=== PATIENT | female | born 1985 | race Caucasian/White ===

== ENCOUNTER 2019-04-28 13:43 | Emergency (ER) | payer OTHER, SELFPAY ==
[2019-04-28 13:50] VITALS: BP 155/92; PULSE 86; RESP 16; TEMP 37.2; O2SAT 99
--- NOTE | 2019-04-28 14:19 | ED.GENADULT ---
HPI - General Adult General Chief complaint: Ear Stated complaint: Migraine/weakness/ear pain Time Seen by Provider: 04/28/19 14:19 Source: patient and RN notes reviewed Mode of arrival: ambulatory Limitations: no limitations History of Present Illness HPI narrative: 34-year-old female presents with complains of nausea, fatigue, and bilateral ear pain for 1 day. Tylenol without relief. Symptoms increased this am upon awakening with headache (not the WORST one of her life), intermittent nausea and dizziness. No neck stiffness. Nausea without emesis, abdominal pain, or diarrhea. Denies ear itching, ear trauma, trauma to head, syncopal episodes, or altered speech. Denies numbness or tingling in extremities. No fever chills. No URI symptoms. Gradual onset started this morning. No head injury. History of migraine. Denies vision change, confusion, or seizure activity. Remains active. Some parts of this dictation were generated by voice recognition software and may contain typographical and/or grammatical inaccuracies. Related Data Home Medications Medication Instructions Recorded Confirmed metoprolol succinate 100 mg PO DAILY 12/27/18 04/28/19 ergocalciferol (vitamin D2) 50,000 unit PO WEEKLY 04/28/19 04/28/19 [Vitamin D2] Allergies Allergy/AdvReac Type Severity Reaction Status Date / Time hydrocodone Allergy Unknown throat Verified 04/28/19 13:58 closes Review of Systems Review of Systems: Narrative: CONSTITUTIONAL: Complains of fatigue. Denies fever, chills, sweats. EYES: Denies visual changes, redness, discharge. ENT: Denies rhinorrhea, congestion, sore throat. Complains of bilateral otalgia. CARDIOVASCULAR: Denies chest pain, palpitations, edema. RESPIRATORY: Denies dyspnea, wheezing, cough. GASTROINTESTINAL: Denies abdominal pain, vomiting, or diarrhea. Complains of nausea. GENITOURINARY: Denies dysuria, hematuria, abnormal discharge. SKIN: Denies rash or itching. MUSCULOSKELETAL: Denies acute back pain, joint pain, or myalgia. NEUROLOGIC: Denies numbness or focal weakness. Complaints of headache & intermittent dizziness. PSYCHIATRIC: Denies anxiety or depression. All systems reviewed & are unremarkable except as noted in HPI and below PMFSH Past Medical History Medical History (Updated 05/06/19 @ 15:07 by EDGAR Colon) Anxiety Dyslipidemia Hx of migraines SVT (supraventricular tachycardia) Surgical History Surgical History (Updated 05/06/19 @ 14:53 by EDGAR Colon) History of dilation and curettage History of hysterectomy Family History Family History Father Diabetes mellitus Family history of congestive heart failure Social History Social History Smoking status: Former smoker Comments At time of signature, agree with nurse past medical, surgical, social, and family history. There is no relevant family history pertinent to the presenting complaint. Exam Narrative: Exam Narrative: GENERAL: This is a well-nourished, well-developed patient, in no apparent distress. Talks in full sentences, no language deficiencies and ambulates with steady gait without dyspnea. HEAD: normocephalic, atraumatic. EYES: PERRL. Sclera clear/white. Vision is grossly intact. EOMI, no nystagmus noted. EARS: External ears normal, auditory canals clear and without drainage, TMs normal without perforation. Hearing grossly intact. NOSE: External nose normal with no obvious nasal discharge, nares with moderate redness and enlarged turbinates, no rhinorrhea. Mild maxillary sinus tenderness with palpation. THROAT: Mucous membranes moist, posterior pharynx clear. NECK: Neck supple, non-tender without lymphadenopathy, masses or thyromegaly. CARDIOVASCULAR: Regular rate and rhythm without murmurs, gallops, or rubs. RESPIRATORY: Clear to auscultation. Breath sounds equal bilatera
[2019-04-28] MEDS: KETOROLAC (*BKC) 60 MG/2 ML VIAL IM (14:28)
[2019-04-28 14:34] VITALS: BP 146/79; PULSE 65
[2019-04-28 14:36] VITALS: BP 148/89; PULSE 76
[2019-04-28 14:38] VITALS: BP 148/95; PULSE 85
== END 2019-04-28 15:01 | disposition home or self-care (01) ==
PROVIDERS: Emergency Provider Nurse Practitioner Family; PCP Family Medicine
DX: R51 Headache (principal); I10 Essential (primary) hypertension
CPT/HCPCS: 87804; 96372; 99213; G0463; J1885

== ENCOUNTER 2019-11-24 11:34 | Emergency (ER) | payer OTHER, SELFPAY ==
[2019-11-24 11:38] VITALS: BP 151/92; PULSE 66; RESP 16; TEMP 36.5; O2SAT 99
--- NOTE | 2019-11-24 12:00 | ED.FEMALEGU ---
HPI - Female Genitourinary General Chief complaint: Urogenital-Female Stated complaint: BACK PAIN/UTI SYMPTOMS/EARACHE Time Seen by Provider: 11/24/19 11:35 Source: patient Mode of arrival: ambulatory Limitations: no limitations History of Present Illness HPI Narrative: 34-year-old female presents to [facility] with complaints of lower back pains, and lower abdominal pressure with urination since yesterday. Patient reports long history of urinary tract infections and is waiting to see a urologist due to frequent UTIs and blood in her urine. Patient reports that she also started bilateral ear pain, left is worse than right since yesterday. Patient denies fever, bites, chills, nausea, vomiting or diarrhea. Patient not tried taking any [id number] medications for her symptoms. Patient reports history of hysterectomy. MD elicited complaint: back pain and other (lower abdominal pressure with urination ) Onset (ago): day(s) (1) Vaginal bleeding: none Exacerbating factors: none Relieving factors: none Associated symptoms: denies other symptoms Treatment prior to arrival: none Patient : No Related Data Home Medications Medication Instructions Recorded Confirmed metoprolol succinate 100 mg PO DAILY 12/27/18 11/24/19 ergocalciferol (vitamin D2) 50,000 unit PO WEEKLY 04/28/19 11/24/19 [Vitamin D2] Allergies Allergy/AdvReac Type Severity Reaction Status Date / Time hydrocodone Allergy Unknown throat Verified 11/24/19 11:38 closes Review of Systems Constitutional: Constitutional: Denies chills and Denies fatigue ENT: Comments: bilateral ear pain Cardiovascular: Cardiovascular: Denies chest pain Respiratory: Respiratory: Denies cough, Denies dyspnea and Denies wheezing Gastrointestinal: Gastrointestinal: Denies abdominal pain, Denies constipation, Denies diarrhea, Denies nausea and Denies vomiting Genitourinary: Genitourinary: Reports flank pain Comments: lower abdominal pressure with urination Musculoskeletal: Musculoskeletal: Denies myalgias, Denies arthralgias, Denies joint swelling and Denies muscle cramps Integumentary/Breasts: Skin/Breast: Denies rash Neurologic: Denies vertigo, Denies dizziness and Denies syncope PMF Past Medical History Medical History Anxiety Dyslipidemia Hx of migraines SVT (supraventricular tachycardia) Surgical History Surgical History History of dilation and curettage History of hysterectomy Family History Family History Father Diabetes mellitus Family history of congestive heart failure Social History Social History Smoking status: Former smoker Comments At time of signature, I agree with nursing past medical, surgical, social and family history. There is no relevant family history pertinent to the presenting complaint. Exam Const: General: no acute distress and alert Nutritional Appearance: well nourished Orientation/consciousness: patient oriented x3 HENMT: Head: normal to inspection Ears: TM abnormal bulging on the left, erythematous (mild ) on the left and with fluid behind the TM on the left General nose exam: Normal external nose present and Normal nares present Face and sinus: normal facial exam and sinuses nontender Mouth: Yes Normal oral and palatal mucosa present and Yes lip normal Teeth and gingiva: dentition normal Neck: Neck: normal visual inspection and no lymphadenopathy Resp: Effort & Inspection: normal respiratory effort, not labored and not tachypneic Auscultation: clear to auscultation bilaterally Cardio: Rate: regular rate, not bradycardic and not tachycardic Rhythm: regular rhythm GI: Inspection: non-distended GI Palp: Yes Soft to palpation, No Guarding due to palpation present (GI), No Rigid due
== END 2019-11-24 12:20 | disposition short-term general hospital (02) ==
PROVIDERS: Emergency Provider Nurse Practitioner Family; PCP Family Medicine
DX: R10.9 Unspecified abdominal pain (principal); H65.02 Acute serous otitis media, left ear; Z87.891 Personal history of nicotine dependence; E78.5 Hyperlipidemia, unspecified
CPT/HCPCS: 81003; 99213; G0463

== ENCOUNTER 2019-11-24 12:37 | Emergency (ER) | payer OTHER, SELFPAY ==
[2019-11-24 13:11] VITALS: BP 175/114; PULSE 79; RESP 18; TEMP 36.5; O2SAT 100
[2019-11-24 13:25] LABS: Basophils Absolute Auto 0.1 K/mm3 (0.0-0.1); Basophils Percent Auto 0.6 % (0.2-1.2); Eosinophils Absolute Auto 0.2 K/mm3 (0-0.3); Eosinophils Percent Auto 1.5 % (0-4.4); Hematocrit 39.3 % (37.0-47.0); Immature Granulocyte Absolute 0.04 K/mm3 (0.00-0.031); Immature Granulocyte Percent A 0.4 % (0-0.5); Lymphocytes Absolute Auto 3.22 K/mm3 (0.9-3.2); Lymphocytes Percent Auto 29.3 % (18.3-44.2); Mean Corpuscular HGB Conc 33.1 g/dl (32-36); Mean Corpuscular Hemoglobin 29.6 pg (26-34); Mean Corpuscular Volume 89.5 fl (80-100); Mean Platelet Volume 9.5 fl (7.4-10.4); Monocytes Absolute Auto 0.7 K/mm3 (0.1-0.6); Monocytes Percent Auto 6.1 % (2.6-8.5); Neutrophils Absolute Auto 6.8 K/mm3 (1.3-6.7); Neutrophils Percent Auto 62.1 % (45.5-73.1); Platelet Count Result 334 k/mm3 (150-375); Red Blood Count 4.39 M/mm3 (4.2-5.4); Red Cell Distribution Width 12.9 % (11.5-14.5)
[2019-11-24 13:36] LABS: Anion Gap 9 mmol/L (8-16); Blood Urea Nitrogen 12 mg/dL (7-17); Calcium 9.8 mg/dL (8.4-10.2); Carbon Dioxide 29 mmol/L (22-30); Chloride 103 mmol/L (98-107); Estimated CRCL calculation 88 ml/min; Estimated Glomerular Filt Rate > 60; Glucose 87 mg/dL (65-105); Potassium 4.4 mmol/L (3.4-5.0); Sodium 141 mmol/L (137-145)
[2019-11-24 13:46] LABS: Add Urine Microscopic? YES; Appearance Urine Clear (Clear); Bilirubin Urine Negative (Negative); Blood Urine 2+ (Negative); Color Urine Yellow (Yellow); Glucose Urine UA Negative (Negative); Ketones Urine Negative (Negative); Leukocyte Esterase Ur Negative LEU/UL (Negative); Nitrate Urine Negative (Negative); Protein Urine 1+ mg/dL (Negative); Specific Grav Ur 1.017 (1.001-1.035); Squamous Epithelial Cell Urine Few /hpf (Few); Urobilinogen Urine Negative mg/dL (<2.0); WBC Urine 0-3 /hpf
--- NOTE | 2019-11-24 14:23 | PC.NURSE ---
Left without being seen. Will follow up with pmd.
== END 2019-11-24 15:34 | disposition left against medical advice (07) ==
PROVIDERS: Emergency Provider Emergency Medicine; PCP Family Medicine
DX: R10.9 Unspecified abdominal pain (principal)
CPT/HCPCS: 36415; 80048; 81001; 81003; 81025; 85025; 99199; 99213; G0463

== ENCOUNTER 2019-11-28 15:34 | Outpatient (CLI) | payer OTHER, SELFPAY ==
--- NOTE | ~2019-11-28 | US_ITS ---
US renal BI 11/28/2019 16:08 Procedure: Realtime transabdominal ultrasound of the kidneys and bladder. Indication: Gross hematuria Comparison: 06/03/2005 Findings: Renal echotexture is normal bilaterally without hydronephrosis, contour deforming mass or r enal calculus. The right kidney measures 10.9 cm and left kidney measures 11.9 cm. Bladder within no rmal limits. Impression: 1: Unremarkable renal ultrasound. No stones, masses or hydronephrosis. Reviewed, dictated and finalized at location B. Impression: 1: Unremarkable renal ultrasound. No stones, masses or hydronephrosis.
== END 2019-11-28 15:35 | disposition home or self-care (01) ==
PROVIDERS: PCP Family Medicine; Visit Provider Family Medicine
DX: R31.0 Gross hematuria (principal)
CPT/HCPCS: 76775

== ENCOUNTER 2019-12-22 17:58 | Emergency (ER) | payer OTHER, SELFPAY ==
[2019-12-22 18:16] VITALS: BP 151/95; PULSE 75; RESP 20; TEMP 36.7; O2SAT 100
--- NOTE | 2019-12-22 18:25 | ED.GENADULT ---
HPI - General Adult General Chief complaint: Headache Stated complaint: migraine Time Seen by Provider: 12/22/19 18:26 Source: patient Mode of arrival: ambulatory Limitations: no limitations History of Present Illness HPI narrative: 34-year-old female patient presents to the [facility] with complaints of a frontal migraine. Patient states that she does have history of migraines and states that it started this morning when she woke up. Patient states it was somewhat mild when she woke up this morning and she took took some Excedrin Migraine however is gotten worse as the day has went on. Patient states she is prescribed medications for her migraines but does not know what the name of it is. Patient states that she did not take her prescribed migraine medication today yet. Patient denies any vision changes but states she does have sensitivity to the light. Denies any vomiting or diarrhea but does have slight nausea. Patient denies being . Related Data Home Medications Medication Instructions Recorded Confirmed metoprolol succinate 100 mg PO DAILY 12/27/18 11/24/19 ergocalciferol (vitamin D2) 50,000 unit PO WEEKLY 04/28/19 11/24/19 [Vitamin D2] calcium phos,dibas-vitamin D3 tablet PO 11/24/19 [Vitamin D (with calcium)] metoprolol succinate 100 mg PO DAILY 11/24/19 ergocalciferol (vitamin D2) mcg PO DAILY 12/22/19 [Vitamin D2] metoprolol succinate 100 mg PO DAILY 12/22/19 12/22/19 Allergies Allergy/AdvReac Type Severity Reaction Status Date / Time hydrocodone Allergy Unknown throat Verified 11/24/19 11:38 closes Review of Systems Review of Systems: Narrative: CONSTITUTIONAL: Denies fever, chills, or sweats. EYES: Denies visual changes, redness, or discharge. Positive photophobia ENT: Denies rhinorrhea, congestion, sore throat, or otalgia. CARDIOVASCULAR: Denies chest pain, palpitations, or edema. RESPIRATORY: Denies cough or dyspnea. GASTROINTESTINAL: Denies abdominal pain, nausea, vomiting, or diarrhea. GENITOURINARY: Denies dysuria or hematuria. SKIN: Denies rash or itching. MUSCULOSKELETAL: Denies back pain, joint pain, or myalgia. NEUROLOGIC: Positive headache, denies numbness, or weakness. PSYCHIATRIC: Denies anxiety or depression. [facility] Past Medical History Medical History Anxiety Dyslipidemia Hx of migraines SVT (supraventricular tachycardia) Surgical History Surgical History History of dilation and curettage History of hysterectomy Family History Family History Father Diabetes mellitus Family history of congestive heart failure Social History Social History Smoking status: Former smoker Gender identity (if verbalized by the patient): Female Comments At the time of my signature I agree with nursing past medical history, surgical, social, and family history. There is no relevant family history pertinent to the presenting complaint. Exam Narrative: Exam Narrative: GENERAL: Well-appearing, well-nourished, and in no acute distress. HEAD: Normocephalic, atraumatic. EYES: PERRLA and EOMI. positive photophobia ENT: Nares with erythema and edema noted bilaterally, no rhinorrhea or epistaxis. Mucous membranes moist. Posterior pharynx with no erythema, tonsillar joint, exudates or lesions present. Bilateral TMs are clear no erythema or foreign bodies in the canal. NECK: Supple. No lymphadenopathy CHEST: Clear to auscultation. No respiratory distress. HEART: Regular rate and rhythm. No murmur heard. Normal peripheral pulses. ABDOMEN: Soft, nontender, nondistended, normal active bowel sounds. EXTREMITIES: Normal range of motion. No edema. SKIN: Warm, dry, no rash. NEURO: Alert and oriented x4, GCS 15. Cranial nerves II through XII grossly intact. No focal neurol
[2019-12-22] MEDS: ONDANSETRON HCL ODT 4 MG TABLET PO (18:44)
[2019-12-22] MEDS: KETOROLAC (*BKC) 60 MG/2 ML VIAL IM (18:45)
== END 2019-12-22 19:20 | disposition home or self-care (01) ==
PROVIDERS: Emergency Provider Nurse Practitioner Family; PCP Family Medicine
DX: G43.909 Migraine, unspecified, not intractable, without status migrainosus (principal); Z87.891 Personal history of nicotine dependence; E78.5 Hyperlipidemia, unspecified
CPT/HCPCS: 96372; 99213; A9270; G0463; J1885

== ENCOUNTER 2019-12-25 12:45 | Inpatient (IN) | payer OTHER, SELFPAY ==
[2019-12-25] VITALS (18 sets, daily range): BP systolic 121–170; BP diastolic 74–138; PULSE 87–181; RESP 14–220; TEMP 36.4–37; O2SAT 96–99; BMI 54.2
--- NOTE | ~2019-12-25 | XR_ITS ---
EXAMINATION: XR chest 1V portable INDICATION: Shortness of breath TECHNIQUE: Portable AP chest at 1312 hours COMPARISON: 05/12/2018 FINDINGS: A mild diffuse interstitial pattern is present. More focal airspace opacities are seen in t he lung bases. There is no pleural effusion or pneumothorax. The cardiomediastinal silhouette is norm al. The visualized osseous structures are unremarkable. IMPRESSION: 1. Mild diffuse interstitial pattern with more focal airspace opacity of the lung bases. Findings cou ld reflect pulmonary edema and/or pneumonia, and/or atelectasis. Reviewed, dictated and finalized at location A. FABRICATOR IMPRESSION: 1. Mild diffuse interstitial pattern with more focal airspace opacity of the connie ng bases. Findings could reflect pulmonary edema and/or pneumonia, and/or atele ctasis.
--- NOTE | 2019-12-25 13:02 | ECG_ITS ---
Measurements Intervals [place] Rate: 173 P: GA: 0 QRS: 31 QRSD: 80 T: -6 QT: 259 QTc: 440 Interpretive Statements ATRIAL FIBRILLATION WITH RAPID VENTRICULAR RESPONSE BORDERLINE ST-T WAVE ABNORMALITY- INF/LAT LEADS BASELINE ARTIFACT- III, AVF ABNORMAL ECG Electronically Signed On 12-26-2019 11:27:15 ROUTER OPERATOR PIN by Tyler Julian D.O.
--- NOTE | 2019-12-25 13:05 | ED.GENADULT ---
HPI - General Adult General Chief complaint: Arrhythmia/Palpitations Stated complaint: heart palpitations Time Seen by Provider: 12/25/19 12:47 Source: patient History of Present Illness HPI narrative: Patient is a 34 y/o female complaining mild SOB and heart palpitation starting 1 1/2 hour ago. She states that she was just sitting taking lunch break when it started. There is no alleviating or exacerbating factor. She has mild chest pressure. She denies any fever or cough. Related Data Home Medications Medication Instructions Recorded Confirmed ergocalciferol (vitamin D2) 50,000 unit PO WEEKLY 04/28/19 11/24/19 [Vitamin D2] metoprolol succinate 100 mg PO DAILY 12/22/19 12/22/19 sumatriptan succinate mg PO 12/25/19 Allergies Allergy/AdvReac Type Severity Reaction Status Date / Time hydrocodone Allergy Unknown throat Verified 12/25/19 13:03 closes Review of Systems Constitutional: Constitutional: Denies chills, Denies fever(s), Denies headache(s) and Denies weakness Eyes: Eyes: Denies blurry vision ENT: Denies headache(s) and Denies neck pain Cardiovascular: Cardiovascular: Reports chest pain, Reports rapid heart rate and Reports dyspnea Respiratory: Respiratory: Denies cough and Reports dyspnea Gastrointestinal: Gastrointestinal: Denies abdominal pain, Denies diarrhea, Denies nausea and Denies vomiting Genitourinary: Genitourinary: Denies hematuria and Denies dysuria Musculoskeletal: Musculoskeletal: Denies back pain and Denies neck pain Neurologic: Denies headache(s) and Denies weakness PMFSH Past Medical History Medical History Anxiety Dyslipidemia Hx of migraines SVT (supraventricular tachycardia) Surgical History Surgical History History of dilation and curettage History of hysterectomy Family History Family History Father Diabetes mellitus Family history of congestive heart failure Social History Social History Smoking status: Former smoker Gender identity (if verbalized by the patient): Female Exam Const: General: no acute distress and well developed Orientation/consciousness: oriented to person, oriented to place, oriented to time and patient oriented x3 HENMT: Head: normocephalic Ears: external ears normal General nose exam: Normal external nose present Eyes: General: appearance normal, both eyes and all related structures Conjunctivae: conjunctivae normal Neck: Neck: normal visual inspection and full ROM Chest: Chest palpation & inspection: normal inspection of the chest and no tenderness Resp: Effort & Inspection: normal respiratory effort Auscultation: clear to auscultation bilaterally Cardio: Rate: tachycardic Rhythm: abnormal rhythm irregularly irregular GI: GI Palp: No abdominal tenderness and Yes Soft to palpation Skin: General skin exam: normal color and turgor normal Neuro: General: oriented to person, oriented to place, oriented to time and patient oriented x3 Cognition (Neuro): normal cognition Extrem: General: normal to inspection, full ROM and no pedal edema Psych: Appearance: grossly normal Mental Status: mental status grossly normal Affect: normal affect Course Consultations Consultation #1: Discussed with Dr. Diaz (cardiology), who agrees to consult. Date: 12/25/19 Time: 15:10 Consultation #2: Discussed with JEANINE Paredes, who agrees to admit. Date: 12/25/19 Time: 15:23 Vital Signs Vital signs: Vital Signs Temperature 37.0 C 12/25/19 12:56 Pulse Rate 181 H 12/25/19 12:56 Respiratory Rate 24 H 12/25/19 12:56 Blood Pressure 170/138 H 12/25/19 12:56 Pulse Oximetry 97 12/25/19 12:56 Temperature 36.4 C L 12/25/19 17:31 Pulse Rate 104 H 12/25/19 17:31 Respiratory Rate 19 12/25/19 17:31 Blood Pressure 13
[2019-12-25] MEDS: dilTIAZem HCl INJ 25 MG/5 ML VIAL IV PUSH (13:14)
[2019-12-25 13:58] LABS: Basophils Absolute Auto 0.1 K/mm3 (0.0-0.1); Basophils Percent Auto 0.6 % (0.2-1.2); Eosinophils Absolute Auto 0.1 K/mm3 (0-0.3); Eosinophils Percent Auto 0.9 % (0-4.4); Hematocrit 39.6 % (37.0-47.0); Hemoglobin 13.5 g/dL (12.0-15.0); Immature Granulocyte Absolute 0.04 K/mm3 (0.00-0.031); Immature Granulocyte Percent A 0.3 % (0-0.5); Lymphocytes Percent Auto 22.1 % (18.3-44.2); Mean Corpuscular HGB Conc 34.1 g/dl (32-36); Mean Corpuscular Hemoglobin 29.3 pg (26-34); Mean Corpuscular Volume 86.1 fl (80-100); Mean Platelet Volume 9.8 fl (7.4-10.4); Monocytes Absolute Auto 0.6 K/mm3 (0.1-0.6); Monocytes Percent Auto 5.1 % (2.6-8.5); Neutrophils Absolute Auto 8.3 K/mm3 (1.3-6.7); Platelet Count Result 374 k/mm3 (150-375); Red Cell Distribution Width 12.6 % (11.5-14.5); White Blood Count 11.8 K/mm3 (4.5-10.0)
--- NOTE | 2019-12-25 13:58 | PC.NURSE ---
Per verbal order of EDP, cardizem infusion was increased to 10mg/hr(10ml/hr) at this time.
[2019-12-25 14:02] LABS: Add Urine Microscopic? YES; Appearance Urine Clear (Clear); Bilirubin Urine Negative (Negative); Blood Urine 1+ (Negative); Color Urine Colorless (Yellow); Glucose Urine UA Negative (Negative); Ketones Urine Negative (Negative); Leukocyte Esterase Ur Negative LEU/UL (Negative); Mucus Urine Rare /lpf; Nitrate Urine Negative (Negative); Protein Urine 2+ mg/dL (Negative); RBC Urine 0-2 /hpf (0-2); Specific Grav Ur 1.008 (1.001-1.035); Squamous Epithelial Cell Urine Occasional /hpf (Few); Urobilinogen Urine Negative mg/dL (<2.0); WBC Urine 0-3 /hpf
[2019-12-25] MEDS: ACETAMINOPHEN 325 MG TABLET 650 MG PO ×2 (14:02→21:34)
[2019-12-25 14:08] LABS: INR 0.9; Prothrombin Time 12.3 Seconds (11.1-14.7)
[2019-12-25 14:09] LABS: Partial Thromboplastin Time 20.3 SECONDS (22.3-36.8)
[2019-12-25 14:11] LABS: D Dimer 0.44 ug/mL (<0.48)
[2019-12-25 14:15] LABS: Alanine Aminotransferase 23 U/L (4-35); Albumin Level 4.5 g/dL (3.5-5.1); Alkaline Phosphatase 93 U/L (38-126); Anion Gap 11 mmol/L (8-16); Aspartate Amino Transferase 32 U/L (14-36); Bilirubin,Total 0.4 mg/dL (0.2-1.3); Blood Urea Nitrogen 16 mg/dL (7-17); Calcium 9.4 mg/dL (8.4-10.2); Carbon Dioxide 26 mmol/L (22-30); Chloride 105 mmol/L (98-107); Estimated Glomerular Filt Rate > 60; Glucose 104 mg/dL (65-105); Potassium 4.1 mmol/L (3.4-5.0); Sodium 142 mmol/L (137-145)
[2019-12-25 14:26] LABS: NT Pro B Type Natriuretic Pept 94 PG/ML (5-100); Troponin I < 0.012 ng/mL (0.000-0.034)
--- NOTE | 2019-12-25 14:30 | PC.NURSE ---
Per verbal order of Dr. Echevarria, cardizem drip was increased to 15mg/hr(15ml/hr).
[2019-12-25] MEDS: AMIODARONE 150 MG/D5W 100 ML 150 MG/100 ML BAG 600 MG IV CONT (15:28)
[2019-12-25] MEDS: AMIODARONE 360 MG/D5W 200 ML 360 MG/200 ML BAG 33.33 MG IV CONT (15:40)
--- NOTE | 2019-12-25 18:00 | PM.IMHP ---
H&P: HPI History of Present Illness Date/Time: 12/25/19 18:00 Chief complaint: Palpitations. Narrative: Tracy Chavarria is a pleasant 34-year-old female with history of obstructive sleep apnea and supraventricular tachycardia on metoprolol who presented to the emergency department earlier this afternoon from her place of employment with complaints of palpitations. While sitting in the break room eating lunch she developed sudden onset of palpitations and reports feelings of a racing heart, lightheadedness, and mild midsternal chest pressure. All of these symptoms are similar to prior episodes of SVT. She was found to be in atrial fibrillation with rapid ventricular response, which is a new diagnosis for her, and she is being admitted in this setting. On arrival to the emergency department her heart rate was in the 180s, but has improved on Cardizem drip and she is now running around 120. She is no longer experiencing palpitations or chest pressure. She is still adjusting to her CPAP as it was delivered recently, but it does not sound as though she has been using it every night. She has not missed any doses of her metoprolol. She drinks maybe 1 cup of coffee a day and 32 oz of soda a day. No significant alcohol use. She does not take supplements or consume energy drinks. She has not had exertional chest pain shortness of breath. No orthopnea, PND, or lower extremity edema. Review of Systems Review of Systems: Narrative: Twelve systems were reviewed with pertinent positives and negatives as per HPI. No fever, chills, or sweats. No recent cold or flu symptoms. She denies sick contacts. Weight has remained stable. She has been suffering from migraines, and more recently occipital headaches. She was told that the headaches may very well be related to her untreated sleep apnea. No nausea, vomiting, or diarrhea. No history of thyroid disease or concerns for such Except as documented, all other systems were reviewed and are negative. [facility] Past Medical History Medical History (Updated 12/25/19 @ 21:02 by Lena Dunham PA-C) Anxiety Dyslipidemia Endometriosis Migraine headache Obstructive sleep apnea on CPAP Supraventricular tachycardia Vitamin D deficiency Surgical History Surgical History (Updated 12/25/19 @ 20:58 by Lena Dunham PA-C) History of dilation and curettage History of hysterectomy With unilateral salpingo-oophorectomy. History of laparoscopy With destruction of endometriosis. History of tubal ligation Family History Family History (Updated 12/25/19 @ 20:58 by Lena Dunham PA-C) Father Diabetes mellitus Family history of congestive heart failure Mother Atrial fibrillation Social History Social History (Updated 12/25/19 @ 20:59 by Lena Dunham PA-C) Social History: Surrogate decision maker: Mariam Chavarria, . Code status: Full code. Smoking packs per day: 1 Smoking cigarettes per day: 20.0 Years smoked: 7 Smoking pack-years: 7.00 Smoking status: Former smoker Alcohol intake: never Substance use: never Additional living arrangements comments: Resides in [place] with her and 3 children. Additional occupation/education comments: Works in housekeeping at [employer]. Gender identity (if verbalized by the patient): Female Spiritual care concerns: No Meds Home Medications and Allergies Home Medications Medication Instructions Recorded Confirmed Type ergocalciferol (vitamin D2) 50,000 unit PO WEEKLY 04/28/19 12/25/19 History [Vitamin D2] loratadine [Claritin] 10 mg PO DAILY PRN #20 tablet 11/24/19 12/25/19 Rx metoprolol succinate 100 mg PO QPM 12/22/19 12/25/19 History sumatriptan succinate 50 mg PO USEASDIRECTD 12/25/19 12/25/19 History Allergies Allergy/AdvReac Type Severity Reaction Status Date / Time hydrocodone Allergy Unknown throat Verified 12/25/19 13:03 closes Vital Signs Vital Signs - 24
[2019-12-25 19:57] LABS: Troponin I 0.015 ng/mL (0.000-0.034)
--- NOTE | 2019-12-25 20:03 | ADMGEN ---
This patient, Tracy Chavarria, was admitted to IMU Room 203-01. Patient/family oriented to hospital policies and general routines including ID bracelet, bed and alarms, visiting hours, pain management, procedures, bathroom and other care routines, personal items, smoking policy, room service/diet, and visiting hours. Information on how to activate the Rapid Response Team has been discussed. Patient/Family are encouraged to report perceived risks to care and to ask questions if they do not understand what they are told or what they should do.
[2019-12-25] MEDS: AMIODARONE 360 MG/D5W 200 ML 360 MG/200 ML BAG 16.67 MG IV CONT (20:48)
[2019-12-26] VITALS (19 sets, daily range): BP systolic 130–169; BP diastolic 76–107; PULSE 49–111; RESP 16–20; TEMP 36.1–36.6; O2SAT 97–99
[2019-12-26] MEDS: ACETAMINOPHEN 325 MG TABLET 650 MG PO ×2 (01:36→08:24)
--- NOTE | 2019-12-26 06:38 | ECG_ITS ---
Measurements Intervals [place] Rate: 70 P: 20 ND: 155 QRS: 3 QRSD: 86 T: 65 QT: 399 QTc: 431 Interpretive Statements SINUS RHYTHM DELAYED PRECORDIAL R/S TRANSITION NONSPECIFIC T-WAVE ABNORMALITY- HIGH LAT LEADS BORDERLINE ECG Electronically Signed On 12-26-2019 8:31:20 HUMAN RESOURCES VICE PRESIDENT by Tyler Julian D.O.
[2019-12-26] MEDS: AMIODARONE 360 MG/D5W 200 ML 360 MG/200 ML BAG 16.67 MG IV CONT (08:25)
--- NOTE | 2019-12-26 12:25 | PM.CNCAR ---
Assessment and Plan Additional Plan 34-year-old woman with prior history of SVT now presenting with atrial fibrillation with RVR which once again occurred paroxysmally while she was at work. 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 Following initiation of treatment with amiodarone intravenously she has converted to sinus rhythm. Most likely her atrial arrhythmias are related to obesity/sleep apnea which is relatively common. Because of the recurrence while she was taking metoprolol 100 mg daily am going to initiate therapy with sotalol in place of this. Intravenous amiodarone will be stopped at this time as we certainly do not wish to commit this young lady to long-term amiodarone treatment Real Gomez MD [facility] History of Present Illness History of Present Illness Consult date/time: 12/26/19 12:25 Consult reason: atrial fibrillation Reason For Visit: Palpitations. Narrative: This is a 34-year-old woman I am seeing at the request of the hospitalist service for assistance with the management of atrial fibrillation. The patient is unknown to be prior to this consultation today but states that she is a established patient of Dr. Julian. She states that she had no history of any cardiac problems until about 1-2 years ago when she was hospitalized or seen in the emergency room with an episode of symptomatic supraventricular tachycardia. She states that that time she abruptly noted the onset of tachycardia and palpitations while she was at work she was seen in the emergency room and treated with adenosine restoring sinus rhythm. She states that her evaluation since then consisted of echocardiography which she was told was negative and she was placed on metoprolol for both this and for hypertension. Her blood pressure was modestly elevated at that time. She was found to have obstructive sleep apnea on subsequent sleep testing. She is morbidly obese with a BMI of 54. She has not had any recurrence of palpitations until yesterday afternoon/evening. 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 This time her electrocardiogram appears to show a atrial fib with rapid ventricular response rather than SVT. The emergency room physician placed her on intravenous amiodarone which overnight has converted her to sinus rhythm. In that is scenario I am seeing her in consultation today. She appears to be comfortable and without any other complaints at this time. Patient is with several children her youngest is a daughter of 12 years old. She does not smoke she smoked as a younger woman but does not smoke anymore. Does not consume alcohol or use any illicit drugs she does not drink excessive amounts of caffeinated beverages. Review of Systems Constitutional: Constitutional: Reports no additional constitutional complaints Eyes: Eyes: Reports no additional eye complaints ENT: Reports system reviewed and no additional complaints, except as documented Cardiovascular: Cardiovascular: Reports as per HPI Respiratory: Respiratory: Reports as per HPI Gastrointestinal: Gastrointestinal: Reports no additional gastrointestinal complaints Musculoskeletal: Musculoskeletal: Reports no additional musculoskeletal complaints Integumentary/Breasts: Skin/Breast: Reports system reviewed and no additional complaints, except as docu Endocrine: Endocrine: Reports no additional endocrine complaints Hematologic/Lymphatic: Hematologic/Lymphatic: Reports no additional hematologic/lymphatic complaints Allergic/Immunologic: Allergic/Immunologic: Reports no additional allergic/immunologic complaints [facility] Past Medical History Medical History (Updated 12/25/19 @ 21:02 by Lena Dunham PA-C) Anxiety Dyslipi
--- NOTE | 2019-12-26 12:40 | PM.IMPN ---
Progress Note: A&P Assessment and Plan (1) Atrial fibrillation with rapid ventricular response: Code(s): I48.91 - Unspecified atrial fibrillation Status: Acute Assessment and Plan: Patieint had acute onset on palpiatations and found to have AFib/RVR. She was started on Cardizem drip but changed to Amiodarone. She has converted to NSR. Echocardiogram showing EF 50-55% with normal diastolic function. No change from echo done last year. [id number] score is 1 (female) so no anticoagulation needed. Will add ASA. Sotalol loading ordered. Appreciate cardiology input. (2) Abnormal chest xray: Code(s): R93.89 - Abnormal findings on diagnostic imaging of other specified body structures Status: Acute Assessment and Plan: Chest x-ray on admission showing mild diffuse interstitial pattern. This is most likely pulmonary edema related to her rapid ventricular response from the AFib. She remains on room air. Will continue to follow clinically at this time. Repeat chest x-ray if her symptoms worsen or other clinical indications. Patient is tested frequently for COVID and feel COVID is less likely at this time. (3) Obstructive sleep apnea on CPAP: Code(s): G47.33 - Obstructive sleep apnea (adult) (pediatric); Z99.89 - Dependence on other enabling machines and devices Status: Inactive Assessment and Plan: Patient recently started on CPAP at home. She is tolerating this at times. Continue PAP therapy here with auto titrate. (4) Supraventricular tachycardia: Code(s): I47.1 - Supraventricular tachycardia Status: Inactive Assessment and Plan: Patient has a history of SVT. Last episode was over a year ago. She has been compliant with her metoprolol. She has been switched to sotalol at this time as mentioned above. Continue telemetry. (5) DVT prophylaxis: Code(s): Z29.9 - Encounter for prophylactic measures, unspecified Status: Acute Assessment and Plan: Sheebanox Subjective Date/time seen: 12/26/19 12:40 Interval history: Date of service: 12/25 34yo female with hx of SVT here for palpitations and found to have new onset AFib. Patient states she had new onset palpitations while sitting at work. She had associated chest tightness. Last episode of SVT was about a year ago. She has been compliant with her metoprolol. She does not drink alcohol. No long car rides or plane rides. No recent hospitalizations or prolonged bedrest. No family history or personal history of VTE. She feels better today. No complaints of palpitations or chest tightness. Her chest does feel ?sore?. No nausea or vomiting. She does drink excessive amounts of caffeine. JULES x 4 days. She is tested frequently at work and last COVID test was negative on 12/20. Exam Narrative: Exam Narrative: AF 97.0 146/94 71 18 98% ra Gen - NARD Chest - CTA bilaterally, nml RR CV - RRR S1/S2; Tele showing AFib that converted to NSR Abd - Soft, obese, NT, +BS Ext - No pedal edema Neuro - Alert and oriented. Nonfocal exam. Psych - Nml mood and affect Skin - Warm and dry Objective Data Vital Signs Vital Signs: Vital Signs - 24 hr 12/25/19 12:56 12/25/19 13:06 12/25/19 13:18 Temperature 98.6 F 98.1 F Pulse Rate 181 H 168 H 180 H Respiratory Rate 24 H 14 Blood Pressure 170/138 H 160/135 H 162/124 H Pulse Oximetry 97 96 12/25/19 13:57 12/25/19 14:28 12/25/19 14:30 Temperature 98.3 F 97.9 F Pulse Rate 145 H 131 H 147 H Respiratory Rate 20 18 Blood Pressure 121/90 146/106 H 146/106 H Pulse Oximetry 99 12/25/19 15:28 12/25/19 15:33 12/25/19 15:40 Temperature 97.8 F Pulse Rate 138 H 133 H 117 H Respiratory Rate 22 H Blood Pressure 143/104 H 143/104 H 141/99 H Pulse Oximetry 97 12/25/19 16:31 12/25/19 17:31 12/25/19 19:44 Temperature 97.5 F L Pulse Rate 107 H 104 H 94 Respiratory Rate 20 19 22 H Blood Pressure 131/95
[2019-12-26] MEDS: SOTALOL HCL 80 MG TABLET PO ×2 (14:03→21:01)
[2019-12-26] MEDS: ASPIRIN 81 MG CHEWABLE TABLET PO (14:06)
--- NOTE | 2019-12-26 16:43 | ECG_ITS ---
Measurements Intervals [place] Rate: 57 P: 10 UT: 152 QRS: 13 QRSD: 88 T: 53 QT: 436 QTc: 425 Interpretive Statements SINUS BRADYCARDIA BORDERLINE ST-T WAVE ABNORMALITY- ANT/HIGH LAT LEADS BORDERLINE ECG Electronically Signed On 12-26-2019 20:26:34 OUTBOUND SALES AGENT by Tyler Julian D.O.
[2019-12-26] MEDS: ERGOCALCIFEROL 50,000 UNIT CAPSULE 50000 UNITS PO (16:58)
--- NOTE | 2019-12-26 20:59 | ECG_ITS ---
Measurements Intervals [place] Rate: 58 P: 38 [place]: 152 QRS: 18 QRSD: 87 T: 51 QT: 422 QTc: 417 Interpretive Statements SINUS BRADYCARDIA WITH SINUS ARRHYTHMIA DELAYED PRECORDIAL R/S TRANSITION LOW QRS VOLTAGE IN PRECORDIAL LEADS BORDERLINE ST-T WAVE ABNORMALITY- ANT/HIGH LAT LEADS BORDERLINE ECG Electronically Signed On 12-27-2019 7:33:14 MECHANIC AND WELDER by Tyler Julian D.O.
[2019-12-26] MEDS: ONDANSETRON INJ 4 MG/2 ML VIAL IV PUSH (21:01)
--- NOTE | 2019-12-26 21:05 | ECHO_ITS ---
Patient Info Name: Tracy Chavarria Age: 34 years : 1985 Gender: Female Ht: 63 in Wt: 287 lbs BSA: 2.49 m2 HR: 69 bpm BP: 130 / 76 mmHg Heart Rhythm: Sinus Rhythm Technical Quality: Good Exam Date: 12/26/2019 11:19 AM Exam Location: [facility] Pulmonary Patient Status: Outpatient Admit Date: 12/25/2019 Staff Ordering Physician: Lena Dunham PA-C Rehabilitation Therapy Technician: Felicity Graham RDCS Attending Provider: Shaun Xavier MD Referring Physician: Charla CHENEY; Exam Type: CA echo doppler color flow Study Info Indications I48.1 - Persistent atrial fibrillation Complete two-dimensional, color flow and Doppler transthoracic echocardiogram is performed. Summary 1. Complete two-dimensional, color flow and Doppler transthoracic echocardiogram is performed. 2. Somewhat technically challenging exam because of obesity. 3. Normal left and right ventricular systolic function. 4. No significant valve abnormalities. 5. Compared to exam done last year there are no apparent differences. Left Ventricle Left ventricular chamber dimension is normal. Left ventricular systolic function is normal, estimated at 50-55%. The left ventricular diastolic function is normal. Right Ventricle Right ventricular chamber dimension is normal. Left Atria Left atrial chamber dimension is normal. Right Atria Right atrial chamber dimension is normal. Aortic Valve The aortic valve is normal. Pulmonic Valve The pulmonic valve is not well visualized. Mitral Valve The mitral valve has normal leaflets. Tricuspid Valve The tricuspid valve leaflets are normal. Pericardium/Pleural The pericardium appears normal. Aorta The aortic root size at the sinus of Valsalva is normal. Left Ventricular Outflow Tract Name Value Normal LVOT 2D LVOT Diameter 2.0 cm LVOT Doppler LVOT Peak Gradient 4 mmHg LVOT Mean Gradient 3 mmHg LVOT VTI 21 cm LVOT VTI/AV VTI Ratio 0.9 LVOT Stroke Volume 67 ml LVOT CO 15.3 l/min LVOT CI 6.1 l/min/m2 Pulmonic Valve Name Value Normal PV Doppler PV Peak Gradient 3 mmHg Mitral Valve Name Value Normal MV Doppler MV Decel Early 235 cm/s2 MV PHT 78 ms MV Area (PHT) 2.8 cm2 4.0-5.0 MV Diastolic Function
[2019-12-27] VITALS (17 sets, daily range): BP systolic 123–150; BP diastolic 72–99; PULSE 47–76; RESP 14–20; TEMP 36.4–36.7; O2SAT 97–99
[2019-12-27 04:50] LABS: Alanine Aminotransferase 23 U/L (4-35); Albumin Level 4.1 g/dL (3.5-5.1); Alkaline Phosphatase 67 U/L (38-126); Anion Gap 8 mmol/L (8-16); Aspartate Amino Transferase 28 U/L (14-36); Bilirubin,Total 0.3 mg/dL (0.2-1.3); Blood Urea Nitrogen 18 mg/dL (7-17); Carbon Dioxide 30 mmol/L (22-30); Chloride 101 mmol/L (98-107); Estimated CRCL calculation 89 ml/min; Estimated Glomerular Filt Rate > 60; Glucose 102 mg/dL (65-105); Potassium 3.8 mmol/L (3.4-5.0); Sodium 139 mmol/L (137-145)
[2019-12-27 04:55] LABS: Immunoglobulin A 162 mg/dL (70-400); Immunoglobulin G 1263 mg/dL (700-1600); Immunoglobulin M 120 mg/dL (40-230); Rheumatoid Factor < 8.6 IU/ML (<12)
[2019-12-27] MEDS: SOTALOL HCL 80 MG TABLET PO ×2 (08:46→20:02)
[2019-12-27] MEDS: ASPIRIN 81 MG CHEWABLE TABLET PO (08:47)
--- NOTE | 2019-12-27 09:42 | PM.PNCARD ---
Progress Note: A&P Assessment and Plan (1) Atrial fibrillation with rapid ventricular response: Code(s): I48.91 - Unspecified atrial fibrillation Status: Acute Assessment and Plan: Patient has converted back to sinus rhythm. Patient is on sotalol 80 mg p.o. q.12 hours. Her QT interval is within normal limits thus far. Check EKG today for any QT prolongation. Continue to monitor on telemetry. Creatinine, potassium within normal limits. Check magnesium. Continue low-dose aspirin. No major structural heart disease on surface echo. Patient will need 3 day observation in the hospital after initiation of sotalol. Recommend outpatient evaluation by electrophysiology given history of SVT and now AFib. Recommend weight reduction and optimal treatment of CONNIE. Subjective Date/time seen: 12/27/19 09:42 Date of service: 12/27/2019 Interval history: Patient denies any symptoms of palpitations or shortness of breath at present but no chest pain. On telemetry, she has been in sinus rhythm. Patient has been initiated on sotalol. Exam Narrative: Exam Narrative: PHYSICAL EXAMINATION: GENERAL: Obese,alert, oriented, no acute distress MENTAL STATUS: affect appropriate to mood EYES: Extraocular movements intact, no pallor EARS: External ears appear normal, hearing grossly normal NOSE: Normal and patent, no discharge MOUTH: Mucous membranes moist, tongue normal NECK: Supple, no JVD CHEST: Good respiratory effort, clear to auscultation HEART: Normal rate, regular rhythm, normal S1 and S2 ABDOMEN: Obese, soft NEUROLOGICAL: Alert, oriented, normal speech, no gross motor deficits MUSCULOSKELETAL: No major deformity, no amputation EXTREMITIES: No pedal edema, no clubbing, no cyanosis SKIN: no rash on the exposed area, no cyanosis PSYCHIATRIC: Normal mood, appropriate affect Objective Data Vital Signs Vital Signs: Vital Signs - 24 hr 12/26/19 10:00 12/26/19 12:00 12/26/19 12:30 Temperature 36.6 C 36.1 C L Pulse Rate 71 72 73 Respiratory Rate 16 18 Blood Pressure 169/107 H 146/94 H Pulse Oximetry 99 98 12/26/19 14:00 12/26/19 14:03 12/26/19 16:00 Temperature 36.6 C Pulse Rate 69 78 56 L Respiratory Rate 16 Blood Pressure 147/96 H Pulse Oximetry 98 12/26/19 18:00 12/26/19 19:55 12/26/19 20:00 Temperature 36.5 C Pulse Rate 60 66 66 Respiratory Rate 18 18 Blood Pressure 154/97 H Pulse Oximetry 99 98 12/26/19 21:01 12/26/19 22:00 12/26/19 23:44 Temperature 36.5 C Pulse Rate 65 58 L 49 L Respiratory Rate 18 Blood Pressure 135/99 H Pulse Oximetry 99 12/27/19 00:00 12/27/19 02:00 12/27/19 04:00 Temperature 36.7 C Pulse Rate 47 L 55 L 76 Respiratory Rate 18 18 Blood Pressure 123/72 Pulse Oximetry 99 98 12/27/19 05:54 12/27/19 07:00 12/27/19 08:46 Temperature 36.4 C Pulse Rate 58 L 55 L 54 L Respiratory Rate 18 Blood Pressure 127/73 Pulse Oximetry 98 Intake/Output Intake/Output: Intake & Output 12/24/19 12/25/19 12/26/19 12/27/19 23:59 23:59 23:59 23:59 Intake Total 400 1923 500 Output Total 1900 600 Balance 400 23 -100 Meds/Results Medications: Active Medications Generic Name Dose Route Start Last Admin Trade Name Freq PRN Reason Stop Dose Admin Acetaminophen 650 mg 12/25/19 20:54 12/26/19 08:24 Acetaminophen 325 Mg Tablet PO 650 mg Q4H PRN Administration Mild Pain (1-3) or Fever Aspirin 81 mg 12/26/19 13:15 12/27/19 08:47 Aspirin 81 Mg Chewable Tablet PO 81 mg DAILY@0800 [facility] Administration Ergocalciferol 50,000 unit 12/26/19 09:00 12/26/19 16:58 Ergocalciferol 50,000 Unit Capsule PO 50,000 unit Mo@0900 [facility] Administration Loratadine 10 mg 12/26/19 07:54 Loratadine 10 Mg Tablet PO DAILY PRN allergy symptoms Ondansetron HCl 4 mg 12/26/19 20:29 12/26/19 21:01 Ondansetron Inj 4 Mg/2 Ml Vial IV PUSH 4 mg Q6H PRN Administration Nausea And Vom
[2019-12-27 10:09] LABS: Magnesium 2.2 mg/dL (1.6-2.3)
--- NOTE | 2019-12-27 11:00 | ECG_ITS ---
Measurements Intervals [place] Rate: 51 P: 41 [place]: 133 QRS: 14 QRSD: 87 T: 18 QT: 447 QTc: 415 Interpretive Statements SINUS BRADYCARDIA LOW QRS VOLTAGE IN PRECORDIAL LEADS DELAYED PRECORDIAL R/S TRANSITION BORDERLINE T WAVE ABNORMALITY- ANTERIOR LEADS BASELINE WANDER- V4-V5 BORDERLINE ECG Electronically Signed On 12-27-2019 11:57:01 BELT SANDER STONE by Tyler Julian D.O.
--- NOTE | 2019-12-27 17:15 | PM.IMPN ---
Progress Note: A&P Assessment and Plan (1) Atrial fibrillation with rapid ventricular response: Code(s): I48.91 - Unspecified atrial fibrillation Status: Acute Assessment and Plan: Patieint had acute onset on palpiatations and found to have AFib/RVR. She was started on Cardizem drip but changed to Amiodarone. She has converted to NSR. Echocardiogram showing EF 50-55% with normal diastolic function. No change from echo done last year. [id number] score is 1 (female) so no anticoagulation needed. ASA. Sotalol loading ordered. (2) Abnormal chest xray: Code(s): R93.89 - Abnormal findings on diagnostic imaging of other specified body structures Status: Acute Assessment and Plan: Chest x-ray on admission showing mild diffuse interstitial pattern. This is most likely pulmonary edema related to her rapid ventricular response from the AFib. She remains on room air. Will continue to follow clinically at this time. Repeat chest x-ray if her symptoms worsen or other clinical indications. Patient is tested frequently for COVID and feel COVID is less likely at this time. (3) Obstructive sleep apnea on CPAP: Code(s): G47.33 - Obstructive sleep apnea (adult) (pediatric); Z99.89 - Dependence on other enabling machines and devices Status: Inactive Assessment and Plan: Patient recently started on CPAP at home. She is tolerating this at times. Continue PAP therapy here with auto titrate. (4) Supraventricular tachycardia: Code(s): I47.1 - Supraventricular tachycardia Status: Inactive Assessment and Plan: Patient has a history of SVT. Last episode was over a year ago. She has been compliant with her metoprolol. She has been switched to sotalol at this time as mentioned above. Continue telemetry. (5) DVT prophylaxis: Code(s): Z29.9 - Encounter for prophylactic measures, unspecified Status: Acute Assessment and Plan: Sheeb[place]ox Subjective Date/time seen: 12/27/19 17:15 Interval history: Date of service: 12/26 34yo female with hx of SVT here for palpitations and found to have new onset AFib. Patient states she had new onset palpitations while sitting at work. She had associated chest tightness. Last episode of SVT was about a year ago. She has been compliant with her metoprolol. She does not drink alcohol. No long car rides or plane rides. No recent hospitalizations or prolonged bedrest. No family history or personal history of VTE. She feels better today. No complaints of palpitations or chest tightness. Her chest does feel ?sore?. No nausea or vomiting. She does drink excessive amounts of caffeine. JULES x 4 days. She is tested frequently at work and last COVID test was negative on 12/20. Exam Narrative: Exam Narrative: AF 97.0 130/86 52 18 97% ra Gen - NARD Chest - CTA bilaterally, nml RR CV - RRR S1/S2; Tele showing AFib that converted to NSR Abd - Soft, obese, NT, +BS Ext - No pedal edema Neuro - Alert and oriented. Nonfocal exam. Psych - Nml mood and affect Skin - Warm and dry Objective Data Vital Signs Vital Signs: Vital Signs - 24 hr 12/26/19 18:00 12/26/19 19:55 12/26/19 20:00 Temperature 36.5 C Pulse Rate 60 66 66 Respiratory Rate 18 18 Blood Pressure 154/97 H Pulse Oximetry 99 98 12/26/19 21:01 12/26/19 22:00 12/26/19 23:44 Temperature 36.5 C Pulse Rate 65 58 L 49 L Respiratory Rate 18 Blood Pressure 135/99 H Pulse Oximetry 99 12/27/19 00:00 12/27/19 02:00 12/27/19 04:00 Temperature 36.7 C Pulse Rate 47 L 55 L 76 Respiratory Rate 18 18 Blood Pressure 123/72 Pulse Oximetry 99 98 12/27/19 05:54 12/27/19 07:00 12/27/19 08:00 Temperature 36.4 C Pulse Rate 58 L 55 L 54 L Respiratory Rate 18 18 Blood Pressure 127/73 Pulse Oximetry 98 98 12/27/19 08:46 12/27/19 10:00 12/27/19 12:00 Temperature 36.7 C Pulse Rate 54 L 62 51 L Respirat
--- NOTE | 2019-12-27 21:54 | ECG_ITS ---
Measurements Intervals [place] Rate: 52 P: 43 [place]: 147 QRS: 18 QRSD: 94 T: 32 QT: 446 QTc: 416 Interpretive Statements SINUS BRADYCARDIA WITH SINUS ARRHYTHMIA NONSPECIFIC T-WAVE ABNORMALITY- ANTERIOR LEADS BORDERLINE ECG Electronically Signed On 12-28-2019 8:41:15 GENERAL COUNSELOR by Tyler Julian D.O.
[2019-12-28] VITALS (9 sets, daily range): BP systolic 107–140; BP diastolic 49–79; PULSE 47–77; RESP 18–22; TEMP 36.2–36.6; O2SAT 93–98
[2019-12-28] MEDS: SOTALOL HCL 80 MG TABLET PO (08:20)
[2019-12-28] MEDS: ASPIRIN 81 MG CHEWABLE TABLET PO (08:23)
--- NOTE | 2019-12-28 09:30 | ECG_ITS ---
Measurements Intervals [place] Rate: 64 P: 43 [place]: 150 QRS: 27 QRSD: 87 T: 45 QT: 450 QTc: 466 Interpretive Statements SINUS RHYTHM BORDERLINE ST-T WAVE ABNORMALITY- ANT/HIGH LAT LEADS BORDERLINE ECG Electronically Signed On 12-28-2019 13:10:22 PROGRAM PROPOSALS COORDINATOR by Tyler Julian D.O.
--- NOTE | 2019-12-28 11:40 | ECG_ITS ---
Measurements Intervals [place] Rate: 61 P: 38 TN: 151 QRS: 7 QRSD: 86 T: 16 QT: 459 QTc: 463 Interpretive Statements SINUS RHYTHM DELAYED PRECORDIAL R/S TRANSITION LOW QRS VOLTAGE IN PRECORDIAL LEADS BASELINE WANDER- V4, V6 BORDERLINE ECG Electronically Signed On 12-28-2019 13:13:48 ELECTRONIC ENGINEERING DRAFTSPERSON by Tyler Julian D.O.
--- NOTE | 2019-12-28 12:32 | PM.PNCARD ---
Progress Note: A&P Assessment and Plan (1) Atrial fibrillation with rapid ventricular response: Code(s): I48.91 - Unspecified atrial fibrillation Status: Acute Assessment and Plan: Converted back to sinus rhythm. Continue sotalol 80 mg p.o. q.12 hours. Her QT interval is within normal limits. Recommend outpatient evaluation by electrophysiology given history of SVT and now AFib. Will leave referral up to Dr Julian. Recommend weight reduction. She states she is consistent with the use of her CPAP for CONNIE . Additional Plan OK to discharge from cardiac standpoint. See discharge instructions for follow-up Plan discussed with Dr Jordan [id number] 12/28/2019 Subjective Date/time seen: 12/28/19 12:32 Interval history: Follow-up for: History of SVT here for palpitations and found to have new onset AFib. Date of service: 12/28/2019 Subjective: Denied chest discomfort, shortness of breath, lightheadedness or palpitations. Review of Systems Constitutional: Constitutional: Denies body ache(s) and Denies chills Eyes: Eyes: Denies blind spots and Denies blurry vision ENT: Reports system reviewed and no additional complaints, except as documented, Denies vertigo, Denies dizziness and Denies epistaxis Cardiovascular: Cardiovascular: Denies chest pain, Denies lightheadedness, Denies palpitations and Denies dyspnea Respiratory: Respiratory: Denies dyspnea Gastrointestinal: Gastrointestinal: Denies abdominal pain, Denies nausea and Denies vomiting Genitourinary: Genitourinary: Denies hematuria Musculoskeletal: Musculoskeletal: Denies back pain and Denies myalgias Integumentary/Breasts: Skin/Breast: Denies erythema and Denies rash Neurologic: Denies dizziness and Denies syncope Psychiatric: Psychiatric: Denies anxiety and Denies depression Endocrine: Endocrine: Denies fatigue, Denies flushing and Denies heat intolerance Hematologic/Lymphatic: Hematologic/Lymphatic: Denies easy bleeding and Denies easy bruising Allergic/Immunologic: Allergic/Immunologic: Denies tongue swelling and Denies wheezing Exam Const: General: cooperative, comfortable and no acute distress Nutritional Appearance: obese Orientation/consciousness: patient oriented x3 HENMT: Mouth: Yes moist mucous membranes Eyes: Sclera: sclerae normal Pupils: Equal, round and reactive pupils present Neck: Neck: supple Thyroid: thyroid normal Other: Exam for JVD difficult given her body habitus no no obvious venous 6 distention Resp: Effort & Inspection: normal respiratory effort and able to speak in complete sentences Auscultation: clear to auscultation bilaterally Cardio: Rate: regular rate Rhythm: regular rhythm Heart sounds: no murmurs Peripheral pulses: Peripheral pulses 2+ throughout GI: GI Palp: Yes Soft to palpation Auscultation: normal bowel sounds Skin: General skin exam: normal color and no rashes or lesions noted Neuro: General: patient oriented x3 Cranial nerves: Yes Equal, round and reactive pupils present and Yes Normal hearing present Cognition (Neuro): normal cognition Extrem: General: normal to inspection, capillary refill normal and no clubbing, cyanosis or edema Psych: Appearance: grossly normal Mental Status: mental status grossly normal Speech and movement: Normal speech and movement present Affect: normal affect Attitude: cooperative Thought process: Normal thought process present Thought content: Yes Normal thought content present Insight: Good insight present (Psych) Judgement: Good judgement present (Psych) Objective Data Vital Signs Vital Signs: Vital Signs - 24 hr 12/27/19 14:00 12/27/19 15:54 12/27/19 16:00 Temperature 36.5 C Pulse Rate 76 52 L 52 L Respiratory Rate 16 16 Blood Pressure 150/99 H Pulse Oximetry 97 97 12/27/19 18:00 12/27/19 20:00 12/27/19 20:02 Temperature 36.6 C Pulse Rate 69 69 69 Respiratory Rate 18 Blood
--- NOTE | 2019-12-28 18:24 | PM.DS ---
DS: Admitting Diagnosis Admitting Diagnosis Admitting Diagnosis: Palpitations. DS: Discharge Diagnosis Discharge Diagnosis (1) Atrial fibrillation with rapid ventricular response: Code(s): I48.91 - Unspecified atrial fibrillation Status: Acute Assessment and Plan: Patieint had acute onset on palpiatations and found to have AFib/RVR. She was started on Cardizem drip but changed to Amiodarone. She has converted to NSR. Echocardiogram showing EF 50-55% with normal diastolic function. No change from echo done last year. [id number] score is 1 (female) so no anticoagulation needed. ASA. Sotalol loading completed with monitoring of QT interval. Discharge on sotalol 80 b.i.d. to follow-up with Dr. Julian in 2 week (2) Abnormal chest xray: Code(s): R93.89 - Abnormal findings on diagnostic imaging of other specified body structures Status: Acute Assessment and Plan: Chest x-ray on admission showing mild diffuse interstitial pattern. This is most likely pulmonary edema related to her rapid ventricular response from the AFib with normal ejection fraction on echo. She remains on room air. W . (3) Obstructive sleep apnea on CPAP: Code(s): G47.33 - Obstructive sleep apnea (adult) (pediatric); Z99.89 - Dependence on other enabling machines and devices Status: Inactive Assessment and Plan: Patient recently started on CPAP at home. She is tolerating this at times. Continue PAP therapy here with auto titrate. (4) Supraventricular tachycardia: Code(s): I47.1 - Supraventricular tachycardia Status: Inactive Assessment and Plan: Patient has a history of SVT. Last episode was over a year ago. She has been compliant with her metoprolol. She has been switched to sotalol at this time as mentioned above. May benefit from EP studies as an outpatient heavily that decision to Dr. Julian DS: Summary Hospital Course Hospital Course: 34-year-old white female with history of SVT presented to the hospital with palpitations and found to be in atrial fib with rapid ventricular response. She converted to sinus rhythm with amiodarone within 12 hour. And was switched to sotalol for long-term treatment with discontinue known for metoprolol. She was loaded with monitoring of her QT interval and did well maintain sinus rhythm. Echo was unchanged from echo 1 year previous. She will continue her CPAP at home for her obstructive sleep apnea. Activity as tolerated she will follow-up with Dr. Julian in 2 weeks Time Spent with Patient Time attestation: Total time spent providing and/or coordinating discharge services: 35 minutes Exam Narrative: Exam Narrative: Condition on discharge Blood pressure 132/50 pulse is 76 and regular saturating 93% on room air afebrile Lungs clear CV regular rate rhythm no murmurs Abdomen soft nontender Extremities without edema distal pulses She was in stable condition and ready to be discharged home Discharge Plan Discharge Attending physician on discharge: Tone Fraser Consulting providers: Real Gomez Discharging Clinician: Tone Fraser Patient Disposition: Home, Self-Care Activity: other - see discharge instructions Diet: heart healthy Discharge Instructions: CARDIOLOGY DISCHARGE INSTRUCTIONS: ACTIVITY: Activity as tolerated. May return to work on Thursday, December 31, 2019 with no restrictions. FOLLOW-UP: Follow up with [facility] [place] ([facility]) office at [facility] [address] to check EKG on Friday, January 03, 2020 at 9:00 a.m.. Please arrive by 8:50 a.m. for your appointment. Bring photo ID and insurance card(s). Please call to make an appointment with Dr Julian 1-2 weeks. Patient Instructions: Antibiotic Form Stand Alone Forms: General Discharge Information, Work/School Rele
[2019-12-30 16:14] LABS: Albumin 3.6 g/dL (3.8-4.8); Alpha 1 Globulin 0.3 g/dL (0.2-0.3); Alpha 2 Globulin 0.8 g/dL (0.5-0.9); Beta 1 Globulin 0.5 g/dL (0.4-0.6); Gamma Globulin 1.2 g/dL (0.8-1.7); Protein, Total 6.7 g/dL (6.1-8.1)
[2019-12-31 23:40] LABS: Creatinine, Random Urine 149 mg/dL (20-275); Total Protein/Creatinine Ratio 74 mg/g creat (21-161)
== END 2019-12-28 14:20 | disposition home or self-care (01) | DRG 201 ==
LOC: ANHED 13:22 → ANHIMU 17:46
PROVIDERS: Internal Medicine Cardiovascular Disease; Admitting Provider Internal Medicine; Emergency Provider Emergency Medicine; PCP Family Medicine; Visit Provider Internal Medicine
DX: I48.91 Unspecified atrial fibrillation (principal); R93.89 Abnormal findings on diagnostic imaging of other specified body structures; G47.33 Obstructive sleep apnea (adult) (pediatric); I47.1 Supraventricular tachycardia; E78.5 Hyperlipidemia, unspecified; E66.01 Morbid (severe) obesity due to excess calories; Z68.43 Body mass index [BMI] 50.0-59.9, adult; Z79.899 Other long term (current) drug therapy; Z87.891 Personal history of nicotine dependence; Z99.89 Dependence on other enabling machines and devices
CPT/HCPCS: 36415; 71045; 80053; 81001; 82570; 82784; 83735; 83880; 84155; 84156; 84165; 84166; 84443; 84484; 85025; 85380; 85610; 85730; 86430; 93005; 93306; 96365; 96366; 96367; 96375; 99285; A9270; G0378; G0379; J0282; J2405

== ENCOUNTER 2020-01-12 07:53 | Outpatient (CLI) | payer OTHER, SELFPAY ==
[2020-01-12 08:22] LABS: Cholesterol 183 mg/dL (0-200); HDL Direct 26 mg/dL; Triglycerides 312 mg/dL (<150)
[2020-01-12 08:33] LABS: LDL Cholesterol Direct 107 mg/dL
== END 2020-01-12 07:54 | disposition home or self-care (01) ==
PROVIDERS: PCP Family Medicine; Visit Provider Internal Medicine Cardiovascular Disease
DX: E78.5 Hyperlipidemia, unspecified (principal)
CPT/HCPCS: 36415; 80061

== ENCOUNTER 2020-02-15 07:08 | Emergency (ER) | payer OTHER, SELFPAY ==
--- NOTE | ~2020-02-15 | CT_ITS ---
EXAMINATION: CT abd pelvis lumbar wo con DATE: 02/15/2020 07:53 INDICATION: Right flank pain TECHNIQUE: Computed tomography (CT) of the abdomen, pelvis and lumbar spine was performed without int ravenous contrast. The dose-length product was 1446.95 mGy-cm. Automated exposure control and iterati ve reconstruction technique were employed. COMPARISON: CT dated 07/26/2017 FINDINGS: Lung bases are unremarkable. Heart size normal. No significant pleural or pericardial effus ion. There is a small fat-containing umbilical hernia. The liver, spleen, pancreas, adrenal glands and kidneys are unremarkable. Gallbladder is present. No significant vascular abnormality. No lymphadenopathy. No free air or free fluid. There is sacralization of L5. No acute fracture of the lumbar spine. No significant loss of vertebral body height. No evidence for spondylolysis or spondylolisthesis. Mild levocurvature of the lumbar sp ine. IMPRESSION: 1. No acute abnormality of the abdomen, pelvis or lumbar spine. Reviewed, dictated and finalized at location A. H TANK CONTROLLER
[2020-02-15 07:24] VITALS: BP 156/97; PULSE 79; RESP 20; TEMP 36.8; O2SAT 99
--- NOTE | 2020-02-15 07:26 | ED.BACK ---
HPI - Back Pain/Injury General Chief Complaint: Back Pain/Injury Stated Complaint: Severe back pain Time Seen by Provider: 02/15/20 07:10 History of Present Illness HPI Narrative: 34 yo female w/ h/o atrial fibrillation, migraine presents to the ED for back pain. Low back pain for several weeks. Bilateral, worse on the right. Radiates to the right flank. Worse with movement or prolonged standing. Associated with nausea. She has a h/o kidney stone and is worried that this may be another. She has been taking Tylenol without improvement. Reports that she was told that her PCP found blood in her urine and was planning to do an outpatient CT, but this was never scheduled. No weakness, numbness, dysuria, fever. Related Data Home Medications Medication Instructions Recorded Confirmed ergocalciferol (vitamin D2) 50,000 unit PO WEEKLY 04/28/19 01/11/20 [Vitamin D2] sumatriptan succinate 50 mg PO USEASDIRECTD 12/25/19 01/11/20 Allergies Allergy/AdvReac Type Severity Reaction Status Date / Time hydrocodone Allergy Severe throat Verified 02/15/20 07:29 closes Review of Systems Review of Systems: All systems reviewed & are unremarkable except as noted in HPI and below Constitutional: Constitutional: Denies fever(s) and Denies weakness Cardiovascular: Cardiovascular: Denies chest pain Respiratory: Respiratory: Denies dyspnea Gastrointestinal: Gastrointestinal: Denies abdominal pain, Denies diarrhea, Reports nausea and Denies vomiting Genitourinary: Genitourinary: Reports hematuria, Denies nocturia and Denies dysuria Musculoskeletal: Musculoskeletal: Reports back pain Neurologic: Denies numbness and Denies weakness [facility] Past Medical History Medical History Anxiety Dyslipidemia Endometriosis Migraine headache Obstructive sleep apnea on CPAP Supraventricular tachycardia Vitamin D deficiency Surgical History Surgical History History of dilation and curettage History of hysterectomy With unilateral salpingo-oophorectomy. History of laparoscopy With destruction of endometriosis. History of tubal ligation Family History Family History Father Diabetes mellitus Family history of congestive heart failure Mother Atrial fibrillation Social History Social History Social History: Surrogate decision maker: Mariam Chavarria, . Code status: Full code. Smoking packs per day: 1 Smoking cigarettes per day: 20.0 Years smoked: 7 Smoking pack-years: 7.00 Smoking status: Former smoker Alcohol intake: never Substance use: never Additional living arrangements comments: Resides in [place] with her and 3 children. Additional occupation/education comments: Works in housekeeping at [employer]. Gender identity (if verbalized by the patient): Female Spiritual care concerns: No Exam Const: General: no acute distress and alert Nutritional Appearance: obese morbidly obese Orientation/consciousness: patient oriented x3 HENMT: Head: normal to inspection Resp: Effort & Inspection: normal respiratory effort Auscultation: clear to auscultation bilaterally Cardio: Rate: regular rate Rhythm: regular rhythm GI: GI Palp: Yes Soft to palpation and No Tenderness to palpation present (GI) : General: Yes CVA tenderness on the right Back/Spine/Pelvis: Thoracic/Lumbar Spine: pain with thoraco-lumbar ROM and lumbar spinal tenderness Skin: General skin exam: normal color Neuro: General: patient oriented x3, moves all extremities, no focal motor deficits and CN's II-XI intact bilaterally Speech: normal speech Gait exam (Neuro): Normal gait present Extrem: General: normal to inspection Course Vital Signs Vital signs: Vital Signs Temperatu
[2020-02-15] MEDS: KETOROLAC (*BKC) 60 MG/2 ML VIAL IM (07:42)
[2020-02-15 07:56] LABS: Add Urine Microscopic? YES; Appearance Urine Clear (Clear); Bilirubin Urine Negative (Negative); Blood Urine 2+ (Negative); Color Urine Straw (Yellow); Glucose Urine UA Negative (Negative); Ketones Urine Negative (Negative); Leukocyte Esterase Ur Negative LEU/UL (Negative); Mucus Urine Rare /lpf; Nitrate Urine Negative (Negative); Protein Urine 1+ mg/dL (Negative); RBC Urine 0-2 /hpf (0-2); Specific Grav Ur 1.017 (1.001-1.035); Squamous Epithelial Cell Urine Moderate /hpf (Few); Urobilinogen Urine Negative mg/dL (<2.0); WBC Urine 0-3 /hpf
[2020-02-15 09:25] VITALS: BP 137/74; PULSE 60; RESP 16; O2SAT 100
== END 2020-02-15 09:25 | disposition home or self-care (01) ==
PROVIDERS: Emergency Provider Emergency Medicine; PCP Family Medicine
DX: M54.5 Low back pain (principal); I48.91 Unspecified atrial fibrillation; E78.5 Hyperlipidemia, unspecified; N80.9 Endometriosis, unspecified; G47.33 Obstructive sleep apnea (adult) (pediatric); E55.9 Vitamin D deficiency, unspecified; Z87.891 Personal history of nicotine dependence
CPT/HCPCS: 72131; 74176; 81001; 96372; 99284; J1885

== ENCOUNTER 2020-07-10 08:28 | Emergency (ER) | payer OTHER, SELFPAY ==
[2020-07-10 08:38] VITALS: BP 129/84; PULSE 76; RESP 16; TEMP 36.8; O2SAT 99
--- NOTE | 2020-07-10 09:32 | ED.EAR ---
HPI - Ear Problem General Chief complaint: Ear Stated complaint: EAR PAIN Time Seen by Provider: 07/10/20 09:22 Source: patient and RN notes reviewed Mode of arrival: ambulatory Limitations: no limitations History of Present Illness HPI Narrative: Patient presents today with a 2-day history of right ear pain that has been worsening since onset. No decreased hearing or drainage. Denies any additional symptoms to include cough, congestion, rhinorrhea, sore throat, fever. She currently rates her pain 8/10 and has been taking ibuprofen without relief. No recent antibiotic use. No recent swimming. MD Complaint: ear pain Related Data Home Medications Medication Instructions Recorded Confirmed ergocalciferol (vitamin D2) 50,000 unit PO WEEKLY 04/28/19 07/10/20 [Vitamin D2] sumatriptan succinate 50 mg PO USEASDIRECTD 12/25/19 07/10/20 Allergies Allergy/AdvReac Type Severity Reaction Status Date / Time hydrocodone Allergy Severe throat Verified 02/15/20 07:29 closes Review of Systems Review of Systems: Narrative: CONSTITUTIONAL: Denies body aches, fever, chills, or sweats. EYES: Denies visual changes, redness, or discharge. ENT: Denies rhinorrhea, congestion, sore throat. + Right ear pain CARDIOVASCULAR: Denies chest pain, palpitations, or edema. RESPIRATORY: Denies cough or dyspnea. GASTROINTESTINAL: Denies abdominal pain, nausea, vomiting, or diarrhea. GENITOURINARY: Denies dysuria or hematuria. SKIN: Denies rash, itching, or wounds. MUSCULOSKELETAL: Denies back pain, joint pain, or myalgia. NEUROLOGIC: Denies headache, numbness, tingling, or weakness. PSYCH: Denies depression or anxiety. [facility] Past Medical History Medical History Anxiety Dyslipidemia Endometriosis Migraine headache Obstructive sleep apnea on CPAP Supraventricular tachycardia Vitamin D deficiency Surgical History Surgical History History of dilation and curettage History of hysterectomy With unilateral salpingo-oophorectomy. History of laparoscopy With destruction of endometriosis. History of tubal ligation Family History Family History Father Diabetes mellitus Family history of congestive heart failure Mother Atrial fibrillation Social History Social History Social History: Surrogate decision maker: Mariam Chavarria, . Code status: Full code. Smoking packs per day: 1 Smoking cigarettes per day: 20.0 Years smoked: 7 Smoking pack-years: 7.00 Smoking status: Former smoker Alcohol intake: never Substance use: never Additional living arrangements comments: Resides in [place] with her and 3 children. 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 Gender identity (if verbalized by the patient): Female Spiritual care concerns: No Comments At time of signature, I have reviewed and agree with nursing past medical, surgical, social and family history unless otherwise noted. Please see nursing chart for further information. There is no relevant family history pertinent to the presenting complaint Exam Narrative: Exam Narrative: GENERAL: Well-appearing, well-nourished, and in no acute distress. HEAD: Normocephalic, atraumatic. EYES: EOMI. No redness or drainage. Conjunctivae normal. ENT: Mucous membranes pink and moist. Nares clear. No rhinorrhea. Left TM normal. Right TM injected and bulging. Throat normal. Uvula midline. NECK: Normal AROM. Supple. No lymphadenopathy. CHEST: No respiratory distress. Clear to auscultation. HEART: Regular rate and rhythm. No murmur appreciated. Normal peripheral pulses. EXTREMITIES: Normal range of motion. No edema. SKIN: Warm, dry, no rash. Capillary refill normal. Normal skin tur
== END 2020-07-10 09:37 | disposition home or self-care (01) ==
PROVIDERS: Emergency Provider Nurse Practitioner; PCP Family Medicine
DX: H66.91 Otitis media, unspecified, right ear (principal); Z87.891 Personal history of nicotine dependence; E78.5 Hyperlipidemia, unspecified; N80.9 Endometriosis, unspecified; G47.33 Obstructive sleep apnea (adult) (pediatric)
CPT/HCPCS: 99213; G0463

== ENCOUNTER 2020-11-11 13:56 | Emergency (ER) | payer OTHER, SELFPAY ==
--- NOTE | 2020-11-11 14:00 | ED.DENTAL ---
HPI - Dental/Oral General Chief complaint: Dental/Oral Stated complaint: toothache Time Seen by Provider: 11/11/20 14:00 Source: patient and RN notes reviewed History of Present Illness HPI Narrative: Patient is a 35-year-old female who presents the urgent care with complaints of right dental pain. Patient states that it started yesterday and she woke up with swelling today. Patient denies any fever, nausea, vomiting. Patient states that she has been taking ibuprofen [id number] for her symptoms. States that her dentist is aware that the tooth needs to be pulled however her appointment is not until mid December. No other acute complaints. No acute distress noted. Patient aware of the plan of care. Some parts of this dictation were generated by voice recognition software and may contain typographical and/or grammatical inaccuracies. Related Data Home Medications Medication Instructions Recorded Confirmed ergocalciferol (vitamin D2) 50,000 unit PO WEEKLY 04/28/19 11/11/20 [Vitamin D2] sumatriptan succinate 50 mg PO USEASDIRECTD 12/25/19 11/11/20 baclofen 10 mg PO TID PRN 11/11/20 11/11/20 meloxicam 15 mg PO DAILY 11/11/20 11/11/20 omeprazole 40 mg PO DAILY 11/11/20 11/11/20 tramadol 50 mg PO QID PRN 11/11/20 11/11/20 Allergies Allergy/AdvReac Type Severity Reaction Status Date / Time hydrocodone Allergy Severe throat Verified 11/11/20 14:07 closes Review of Systems Review of Systems: CONSTITUTIONAL: Denies fever, chills, or sweats. EYES: Denies visual changes, redness, or discharge. ENT: Denies rhinorrhea, congestion, sore throat, or otalgia. Reports of upper right dental pain with facial swelling CARDIOVASCULAR: Denies chest pain, palpitations, or edema. RESPIRATORY: Denies cough or dyspnea. GASTROINTESTINAL: Denies abdominal pain, nausea, vomiting, or diarrhea. GENITOURINARY: Denies dysuria or hematuria. SKIN: Denies rash or itching. MUSCULOSKELETAL: Denies back pain, joint pain, or myalgia. NEUROLOGIC: Denies headache, numbness, or weakness. All other systems reviewed are negative, except as documented in HPI. [facility] Past Medical History Medical History Anxiety Dyslipidemia Endometriosis Migraine headache Obstructive sleep apnea on CPAP Supraventricular tachycardia Vitamin D deficiency Surgical History Surgical History History of dilation and curettage History of hysterectomy With unilateral salpingo-oophorectomy. History of laparoscopy With destruction of endometriosis. History of tubal ligation Family History Family History Father Diabetes mellitus Family history of congestive heart failure Mother Atrial fibrillation Social History Social History Social History: Surrogate decision maker: Mariam Chavarria, . Code status: Full code. Smoking packs per day: 1 Smoking cigarettes per day: 20.0 Years smoked: 7 Smoking pack-years: 7.00 Smoking status: Former smoker Alcohol intake: never Substance use: never Additional living arrangements comments: Resides in [place] with her and 3 children. 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 Gender identity (if verbalized by the patient): Female Spiritual care concerns: No Comments At the time of my signature, I reviewed and agree with the nursing past medical, surgical, social, and family history. There is no relevant family history pertinent to the patient complaint. Exam Narrative: GENERAL: This is a well-nourished, well-developed patient, in no apparent distress. HEAD: normocephalic, atraumatic. EYES: PERRL. Sclera clear/white. Vision is grossly intact. EARS: External ears normal NOSE: External nose normal with no obvious
[2020-11-11 14:04] VITALS: BP 160/88; PULSE 96; RESP 16; TEMP 36.6; O2SAT 100
== END 2020-11-11 14:15 | disposition home or self-care (01) ==
PROVIDERS: Emergency Provider Nurse Practitioner Family
DX: K04.7 Periapical abscess without sinus (principal); Z87.891 Personal history of nicotine dependence; E78.5 Hyperlipidemia, unspecified; N80.9 Endometriosis, unspecified; Z47.33 Aftercare following explantation of knee joint prosthesis; E55.9 Vitamin D deficiency, unspecified
CPT/HCPCS: 99213; G0463

== ENCOUNTER 2020-12-08 12:38 | Emergency (ER) | payer OTHER, SELFPAY ==
[2020-12-08] VITALS (16 sets, daily range): BP systolic 97–117; BP diastolic 61–86; PULSE 78–180; RESP 12–32; O2SAT 97–100
--- NOTE | ~2020-12-08 | CT_ITS ---
EXAMINATION: CTA chest PE protocol EXAM DATE: 12/08/2020 14:09 INDICATION: dyspna, tachycardia, COVID+ . TECHNIQUE: Spiral CTA of the chest (pulmonary arteries) was performed with 100 cc Omnipaque 350 intr avenous contrast injection. Images were acquired during the pulmonary arterial phase. Coronal maxi mum intensity projection 3D-reconstructions were created by the technologist on dedicated workstation . Axial, coronal and sagittal reformatted images were reviewed. The dose-length product (DLP) for t his examination was 954.86 mGy-cm. The exposure was tailored according to patient size (auto mA exp osure control), and iterative reconstruction (ASIR) was used as additional dose reduction technique. There is no prior study for comparison. FINDINGS: Pulmonary arteries are well opacified and without intraluminal filling defects. No thora cic aortic dissection. Bilateral small patchy peripheral predominant groundglass opacities Appearanc e is typical of early stage COVID 19 pneumonia. Less likely acute possibilities include influenza, p ulmonary edema or hemorrhage. Some chronic processes that can have this appearance include cryptogeni c organizing pneumonia, desquamative interstitial pneumonia, nonspecific interstitial pneumonia, drug toxicity, connective tissue disease. Please clinically correlate and test as appropriate. There are no pleural or pericardial effusions. Tracheobronchial tree is patent. There is no media stinal, hilar or axillary lymphadenopathy. There is no pneumothorax. Heart normal in size. No e vidence of coronary arterial calcification. Upper abdomen is unremarkable. There is thoracic spond ylosis without osteoblastic or osteolytic lesions identified. IMPRESSION: 1. Scattered small peripheral opacities consistent with COVID pneumonia. 2. No pulmonary emboli. Reviewed, dictated and finalized at location A.
--- NOTE | ~2020-12-08 | XR_ITS ---
EXAMINATION: XR chest 1V portable EXAM DATE: 12/08/2020 13:00 INDICATION: COVID+/Dyspnea. TECHNIQUE: Portable AP frontal chest x-ray was obtained. Comparison is made to prior examination from 12/25/2019. FINDINGS: There is small amount of ill-defined left-sided airspace disease suspected, pneumonia. The lungs are otherwise clear. There are no pleural effusions. The cardiomediastinal silhouette is with in normal limits. There is no pneumothorax suspected. The bones and soft tissues are unremarkable. IMPRESSION: Suspect small amount of left-sided pneumonia. Reviewed, dictated and finalized at location A.
--- NOTE | 2020-12-08 12:40 | ECG_ITS ---
Measurements Intervals [place] Rate: 173 P: NC: 0 QRS: 30 QRSD: 86 T: 3 QT: 261 QTc: 443 Interpretive Statements SUPRAVENTRICULAR TACHYCARDIA NONSPECIFIC ST & T-WAVE ABNORMALITY- INF/HIGH LAT LEADS BASELINE ARTIFACT- II, III, AVR, AVF, V3-V6 ABNORMAL ECG Electronically Signed On 12-08-2020 15:55:21 CDT by Tyler Julian D.O.
[2020-12-08 13:05] LABS: Basophils Percent Auto 0.3 % (0.2-1.2); Eosinophils Absolute Auto 0.1 K/mm3 (0-0.3); Eosinophils Percent Auto 0.9 % (0-4.4); Hematocrit 43.2 % (37.0-47.0); Hemoglobin 14.4 g/dL (12.0-15.0); Immature Granulocyte Absolute 0.05 K/mm3 (0.00-0.031); Immature Granulocyte Percent A 0.8 % (0-0.5); Lymphocytes Absolute Auto 2.71 K/mm3 (0.9-3.2); Lymphocytes Percent Auto 41.6 % (18.3-44.2); Mean Corpuscular HGB Conc 33.3 g/dl (32-36); Mean Corpuscular Hemoglobin 28.6 pg (26-34); Mean Corpuscular Volume 85.7 fl (80-100); Mean Platelet Volume 9.5 fl (7.4-10.4); Monocytes Absolute Auto 0.6 K/mm3 (0.1-0.6); Monocytes Percent Auto 9.2 % (2.6-8.5); Neutrophils Absolute Auto 3.1 K/mm3 (1.3-6.7); Neutrophils Percent Auto 47.2 % (45.5-73.1); Platelet Count Result 291 k/mm3 (150-375); Red Blood Count 5.04 M/mm3 (4.2-5.4); Red Cell Distribution Width 12.9 % (11.5-14.5); White Blood Count 6.5 K/mm3 (4.5-10.0)
--- NOTE | 2020-12-08 13:10 | PC.NURSE ---
Preparing pt for Adenosine administration. Pt with soft BP's, diaphoretic. MD Carbone and 2 RNs in room, pt connected to javascript ui developer and defibrillator monitor, pads on, IV fluids running, crash cart in room.
[2020-12-08] MEDS: ADENOSINE IV SOLN 6 MG/2 ML VIAL IV PUSH (13:12)
--- NOTE | 2020-12-08 13:12 | PC.NURSE ---
6mg Adenosine given at this time.
--- NOTE | 2020-12-08 13:15 | ECG_ITS ---
Measurements Intervals [place] Rate: 87 P: 32 NM: 154 QRS: 6 QRSD: 89 T: 29 QT: 407 QTc: 492 Interpretive Statements SINUS RHYTHM FREQUENT ATRIAL PREMATURE COMPLEXES LOW QRS VOLTAGE IN PRECORDIAL LEADS BORDERLINE R WAVE PROGRESSION, ANTERIOR LEADS CONSIDER INFERIOR INFARCT, AGE INDETERMINATE BORDERLINE ST ABNORMALITY- HIGH LATERAL LEADS BASELINE ARTIFACT- II, III, AVR, AVF, V2-V6 ABNORMAL ECG Electronically Signed On 12-08-2020 15:57:13 CDT by Tyler Julian D.O.
[2020-12-08 13:16] LABS: Anion Gap 13 mmol/L (8-16); Blood Urea Nitrogen 12 mg/dL (7-17); Carbon Dioxide 26 mmol/L (22-30); Chloride 104 mmol/L (98-107); Estimated CRCL calculation 79 ml/min; Estimated Glomerular Filt Rate > 60; Glucose 139 mg/dL (65-110); Potassium 3.9 mmol/L (3.4-5.0); Sodium 143 mmol/L (137-145)
[2020-12-08] MEDS: SODIUM CHLORIDE 0.9% IV 1,000 ML 999 ML (13:23)
[2020-12-08 14:02] LABS: Alanine Aminotransferase 125 U/L (4-35); Albumin Level 4.6 g/dL (3.5-5.1); Alkaline Phosphatase 103 U/L (38-126); Aspartate Amino Transferase 95 U/L (14-36); Bilirubin,Total 0.5 mg/dL (0.2-1.3)
--- NOTE | 2020-12-08 14:39 | ED.SOB ---
HPI - SOB/Dyspnea General Chief Complaint: Shortness of Breath/Dyspnea Stated Complaint: SOB/INC HR/COVID+ Time Seen by Provider: 12/08/20 12:53 Source: patient History of Present Illness HPI Narrative: Patient presents with shortness of breath and fast heart rate. Patient ports a history of SVT she woke up this morning and then around 9 AM she was having tachycardia similar to her prior SVTs. She is concerned and came into the ER for evaluation. She reports she feels unwell but denies any focal areas of pain such as chest pain. She did attempt vagal maneuvers at home which was unsuccessful. She reports she has had good luck with adenosine in the past for her symptoms. Related Data Home Medications Medication Instructions Recorded Confirmed ergocalciferol (vitamin D2) 50,000 unit PO WEEKLY 04/28/19 11/11/20 [Vitamin D2] sumatriptan succinate 50 mg PO USEASDIRECTD 12/25/19 11/11/20 baclofen 10 mg PO TID PRN 11/11/20 11/11/20 meloxicam 15 mg PO DAILY 11/11/20 11/11/20 omeprazole 40 mg PO DAILY 11/11/20 11/11/20 tramadol 50 mg PO QID PRN 11/11/20 11/11/20 Allergies Allergy/AdvReac Type Severity Reaction Status Date / Time hydrocodone Allergy Severe throat Verified 11/11/20 14:07 closes Review of Systems Review of Systems: CONSTITUTIONAL: Denies fever, chills, or sweats. EYES: Denies visual changes, redness, or discharge. ENT: Denies rhinorrhea, congestion, sore throat, or otalgia. CARDIOVASCULAR: Denies chest pain, palpitations, or edema. RESPIRATORY: Reports shortness of breath and cough GASTROINTESTINAL: Denies abdominal pain, nausea, vomiting, or diarrhea. GENITOURINARY: Denies dysuria or hematuria. SKIN: Denies rash or itching. MUSCULOSKELETAL: Denies back pain, joint pain, or myalgia. NEUROLOGIC: Denies headache, numbness, dizziness, or weakness. PSYCHIATRIC: Denies anxiety or depression. All systems reviewed & are unremarkable except as noted in HPI and below PMFSH Past Medical History Medical History Anxiety Dyslipidemia Endometriosis Migraine headache Obstructive sleep apnea on CPAP Supraventricular tachycardia Vitamin D deficiency Surgical History Surgical History History of dilation and curettage History of hysterectomy With unilateral salpingo-oophorectomy. History of laparoscopy With destruction of endometriosis. History of tubal ligation Family History Family History Father Diabetes mellitus Family history of congestive heart failure Mother Atrial fibrillation Social History Social History Social History: Surrogate decision maker: Mariam Chavarria, . Code status: Full code. Smoking packs per day: 1 Smoking cigarettes per day: 20.0 Years smoked: 7 Smoking pack-years: 7.00 Smoking status: Former smoker Alcohol intake: never Substance use: never Additional living arrangements comments: Resides in [place] with her and 3 children. 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 Gender identity (if verbalized by the patient): Female Spiritual care concerns: No Exam Narrative: GENERAL: Well-appearing, well-nourished, and in no acute distress. HEAD: Normocephalic, atraumatic. EYES: PERRLA and EOMI. ENT: Nares clear, no rhinorrhea or epistaxis. Mucous membranes moist. NECK: Supple. No masses. No JVD CHEST: Clear to auscultation. No respiratory distress. No wheezes rales or rhonchi HEART: Regular tachycardia ABDOMEN: Soft, nontender, nondistended, normal active bowel sounds. EXTREMITIES: Normal range of motion. No edema. SKIN: Warm, dry, no rash. NEURO: No focal deficits. Alert and oriented x3. PSYCH: Normal mood and affect. Course Reevaluation(s) Reevaluation #1: Padmini domínguez
== END 2020-12-08 15:22 | disposition home or self-care (01) ==
PROVIDERS: Emergency Provider Emergency Medicine
DX: I47.1 Supraventricular tachycardia (principal); U07.1 COVID-19; J12.82 Pneumonia due to coronavirus disease 2019; E78.5 Hyperlipidemia, unspecified; N80.9 Endometriosis, unspecified; G47.33 Obstructive sleep apnea (adult) (pediatric); E55.9 Vitamin D deficiency, unspecified; Z87.891 Personal history of nicotine dependence; I49.1 Atrial premature depolarization; R94.31 Abnormal electrocardiogram [ECG] [EKG]
CPT/HCPCS: 36415; 71045; 71275; 80048; 80076; 85025; 92960; 93005; 96361; 96374; 99284; J0153; J7030; Q9967

== ENCOUNTER 2021-01-10 20:30 | Emergency (ER) | payer OTHER, SELFPAY ==
[2021-01-10 20:40] VITALS: BP 185/114; PULSE 106; RESP 20; TEMP 36.6; O2SAT 98
--- NOTE | 2021-01-10 22:16 | ED.SKABFB ---
HPI - Skin/Abscess/Foreign Bdy General Chief complaint: Skin/Abscess/Foreign Body Stated complaint: Reaction to Covid Shot Time Seen by Provider: 01/10/21 22:06 Source: patient Mode of arrival: ambulatory Limitations: no limitations History of Present Illness HPI narrative: Patient is a 35-year-old female complaining of redness and mild swelling of her left deltoid area and underneath her armpit after receiving her Covid shot yesterday. Patient denies any facial, lip, tongue or throat swelling. Patient denies any chest pain or shortness of breath Related Data Home Medications Medication Instructions Recorded Confirmed ergocalciferol (vitamin D2) 50,000 unit PO WEEKLY 04/28/19 11/11/20 [Vitamin D2] sumatriptan succinate 50 mg PO USEASDIRECTD 12/25/19 11/11/20 baclofen 10 mg PO TID PRN 11/11/20 11/11/20 meloxicam 15 mg PO DAILY 11/11/20 11/11/20 omeprazole 40 mg PO DAILY 11/11/20 11/11/20 tramadol 50 mg PO QID PRN 11/11/20 11/11/20 Allergies Allergy/AdvReac Type Severity Reaction Status Date / Time hydrocodone Allergy Severe throat Verified 01/10/21 21:26 closes Review of Systems Review of Systems: All systems reviewed & are unremarkable except as noted in HPI and below Constitutional: Constitutional: Reports as per HPI PMFSH Past Medical History Medical History Anxiety Dyslipidemia Endometriosis Migraine headache Obstructive sleep apnea on CPAP Supraventricular tachycardia Vitamin D deficiency Surgical History Surgical History History of dilation and curettage History of hysterectomy With unilateral salpingo-oophorectomy. History of laparoscopy With destruction of endometriosis. History of tubal ligation Family History Family History Father Diabetes mellitus Family history of congestive heart failure Mother Atrial fibrillation Social History Social History Social History: Surrogate decision maker: Havecorinne Chavarria, . Code status: Full code. Smoking packs per day: 1 Smoking cigarettes per day: 20.0 Years smoked: 7 Smoking pack-years: 7.00 Smoking status: Former smoker Alcohol intake: never Substance use: never Additional living arrangements comments: Resides in [place] with her and 3 children. Additional occupation/education comments: Works in housekeeping at [employer]. Gender identity (if verbalized by the patient): Female Spiritual care concerns: No Exam Const: General: cooperative, comfortable, no acute distress, well developed, alert and awake; No confusion Nutritional Appearance: obese Orientation/consciousness: oriented to person, oriented to place, oriented to time, patient oriented x3 and No confusion Limitations: no limitations HENMT: Head: normal to inspection, normocephalic and atraumatic Ears: hearing grossly normal bilaterally, TM normal on the right and TM normal on the left General nose exam: Normal external nose present, Normal nares present and No nasal discharge present Face and sinus: normal facial exam Mouth: Yes Normal oral and palatal mucosa present, Yes lip normal, Yes tongue normal and Yes oropharynx normal Throat: posterior oropharynx normal, tonsils normal and uvula midline Eyes: General: appearance normal, both eyes and all related structures Pupils: Equal, round and reactive pupils present EOM: EOMs intact bilaterally Neck: Neck: normal visual inspection, full ROM, no lymphadenopathy and no meningeal signs Chest: Chest palpation & inspection: normal inspection of the chest Resp: Effort & Inspection: normal respiratory effort, able to speak in complete sentences, no respiratory distress and not tachypneic Auscultation: clear to auscultation bilaterally, no crackles, no rales,
[2021-01-10 22:48] VITALS: BP 140/72; PULSE 88; RESP 18; O2SAT 99
== END 2021-01-10 23:15 | disposition home or self-care (01) ==
PROVIDERS: Emergency Provider Emergency Medicine
DX: L53.9 Erythematous condition, unspecified (principal); T49.95XA Adverse effect of unspecified topical agent, initial encounter; F41.9 Anxiety disorder, unspecified; E78.5 Hyperlipidemia, unspecified; G47.33 Obstructive sleep apnea (adult) (pediatric); Z86.69 Personal history of other diseases of the nervous system and sense organs; Z87.891 Personal history of nicotine dependence
CPT/HCPCS: 99281

== ENCOUNTER 2021-05-23 09:50 | Emergency (ER) | payer OTHER, SELFPAY ==
--- NOTE | 2021-05-23 09:53 | ED.URI ---
HPI - URI/Sore Throat General Chief Complaint: Ear Stated Complaint: weakness/ear pain Time Seen by Provider: 05/23/21 09:58 Source: patient, family, RN notes reviewed and old records reviewed Mode of arrival: ambulatory Limitations: no limitations History of Present Illness HPI Narrative: 36-year-old female presents to the [facility] with lateral ear pain and nasal drainage since yesterday. No treatment prior to arrival. Denies cough, fever, chest pain or abdominal pain. Has generalized fatigue MD elicited complaint: sore throat and other (ear pain) Related Data Home Medications Medication Instructions Recorded Confirmed triamterene-hydrochlorothiazid 1 tablet PO DAILY 05/23/21 05/23/21 Allergies Allergy/AdvReac Type Severity Reaction Status Date / Time hydrocodone Allergy Severe throat Verified 05/23/21 10:02 closes Review of Systems Review of Systems: All systems reviewed & are unremarkable except as noted in HPI and below Constitutional: Constitutional: Reports no additional constitutional complaints, Denies chills, Denies fever(s) and Denies headache(s) Eyes: Eyes: Reports no additional eye complaints ENT: Reports as per HPI, Denies vertigo, Denies dizziness, Denies headache(s), Reports nasal congestion and Denies sore throat Comments: Bilateral ears Cardiovascular: Cardiovascular: Reports no additional cardiovascular complaints, Denies chest pain, Denies syncope, Denies rapid heart rate and Denies dyspnea Respiratory: Respiratory: Reports no additional respiratory complaints, Denies cough, Denies dyspnea and Denies wheezing Gastrointestinal: Gastrointestinal: Reports no additional gastrointestinal complaints, Denies abdominal pain, Denies diarrhea, Denies nausea and Denies vomiting Musculoskeletal: Musculoskeletal: Reports no additional musculoskeletal complaints and Denies numbness Integumentary/Breasts: Skin/Breast: Reports system reviewed and no additional complaints, except as docu Neurologic: Reports system reviewed and no additional complaints, except as documented, Denies vertigo, Denies dizziness, Denies syncope, Denies headache(s), Denies focal weakness and Denies numbness Psychiatric: Psychiatric: Reports no additional psychiatric complaints Allergic/Immunologic: Allergic/Immunologic: Reports no additional allergic/immunologic complaints and Denies wheezing PMFSH Past Medical History Medical History Anxiety Dyslipidemia Endometriosis Migraine headache Obstructive sleep apnea on CPAP Supraventricular tachycardia Vitamin D deficiency Surgical History Surgical History History of dilation and curettage History of hysterectomy With unilateral salpingo-oophorectomy. History of laparoscopy With destruction of endometriosis. History of tubal ligation Family History Family History Father Diabetes mellitus Family history of congestive heart failure Mother Atrial fibrillation Social History Social History Social History: Surrogate decision maker: Marvacorinne Deon, . Code status: Full code. Smoking packs per day: 1 Smoking cigarettes per day: 20.0 Years smoked: 7 Smoking pack-years: 7.00 Smoking status: Former smoker Alcohol intake: never Substance use: never Additional living arrangements comments: Resides in [place] with her and 3 children. Additional occupation/education comments: Works in housekeeping at [employer]. Gender identity (if verbalized by the patient): Female Spiritual care concerns: No Comments At the time of my signature, I reviewed and agree with the nursing past medical, surgical, social, and family history. There is no relevant family history pertinent to the patient complaint. Exam Const:
[2021-05-23 09:55] VITALS: BP 136/79; PULSE 83; RESP 20; TEMP 36.5; O2SAT 99
== END 2021-05-23 10:35 | disposition home or self-care (01) ==
PROVIDERS: Emergency Provider Nurse Practitioner
DX: J32.9 Chronic sinusitis, unspecified (principal); F17.210 Nicotine dependence, cigarettes, uncomplicated; E78.5 Hyperlipidemia, unspecified; N80.9 Endometriosis, unspecified; G47.33 Obstructive sleep apnea (adult) (pediatric)
CPT/HCPCS: 87081; 87804; 87880; 99213; G0463

== ENCOUNTER 2021-08-08 11:23 | Emergency (ER) | payer OTHER, SELFPAY ==
[2021-08-08 11:27] VITALS: BP 151/103; PULSE 88; RESP 16; TEMP 37; O2SAT 99
--- NOTE | 2021-08-08 11:30 | ED.FEMALEGU ---
HPI - Female Genitourinary General Chief complaint: Urogenital-Female Stated complaint: uti symptoms, lower back pain Time Seen by Provider: 08/08/21 11:40 Source: patient and RN notes reviewed Mode of arrival: ambulatory Limitations: no limitations History of Present Illness HPI Narrative: 36-year-old female presents with concern for urinary tract infection. She reports 3-day history of low back pain, urine frequency, cloudy urine with a foul odor. She reports history of urinary tract infections. She denies abdominal pain, vomiting, fever, general malaise. MD elicited complaint: UTI Related Data Home Medications Medication Instructions Recorded Confirmed fenofibrate 160 mg tablet tablet 08/08/21 ibuprofen 800 mg tablet tablet 08/08/21 omeprazole 40 mg capsule,delayed cap 08/08/21 release sotalol 80 mg tablet tablet 08/08/21 triamterene 75 tablet 08/08/21 mg-hydrochlorothiazide 50 mg tablet Allergies Allergy/AdvReac Type Severity Reaction Status Date / Time hydrocodone Allergy Severe throat Verified 05/23/21 10:02 closes Review of Systems Review of Systems: CONSTITUTIONAL: Denies malaise, chills, sweats, or fever. CARDIOVASCULAR: Denies chest pain, palpitations, or edema. RESPIRATORY: Denies cough or dyspnea. GASTROINTESTINAL: Denies abdominal pain, nausea, vomiting, diarrhea GENITOURINARY: Reports frequency, malodorous and cloudy urine urgency. Denies dysuria, suprapubic pressure, flank pain or hematuria. SKIN: Denies rash or itching. MUSCULOSKELETAL: Reports bilateral low back pain. Denies myalgia. All systems reviewed & are unremarkable except as noted in HPI and below PMFSH Past Medical History Medical History Anxiety Dyslipidemia Endometriosis Migraine headache Obstructive sleep apnea on CPAP Supraventricular tachycardia Vitamin D deficiency Surgical History Surgical History History of dilation and curettage History of hysterectomy With unilateral salpingo-oophorectomy. History of laparoscopy With destruction of endometriosis. History of tubal ligation Family History Family History Father Diabetes mellitus Family history of congestive heart failure Mother Atrial fibrillation Social History Social History Social History: Surrogate decision maker: Mariam Chavarria, . Code status: Full code. Smoking packs per day: 1 Smoking cigarettes per day: 20.0 Years smoked: 7 Smoking pack-years: 7.00 Smoking status: Former smoker Alcohol intake: never Substance use: never Additional living arrangements comments: Resides in [place] with her and 3 children. 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 Gender identity (if verbalized by the patient): Female Spiritual care concerns: No Comments At time of signature, agree with nursing past medical, surgical, social and family history. There is no relevant family history pertinent to the presenting complaint Exam Narrative: GENERAL: Well-appearing, well-nourished, and in no acute distress. HEAD: Normocephalic. EYES: PERRLA, conjunctivae clear. NECK: Supple. No lymphadenopathy CHEST: Clear to auscultation. No respiratory distress. HEART: Regular rate and rhythm. ABDOMEN: Soft, nontender upon palpation, nondistended, normal active bowel sounds, no palpable or pulsatile masses, no guarding. No CVA tenderness SKIN: Warm, dry, no rash. NEURO: Alert and oriented x3. PSYCH: Normal mood and affect Course Course Emergency Course: Discussed urinalysis, discussed waiting for culture results to start antibiotic or starting antibiotic now, patient prefers to start antibiotic now. Instructed patient to inquire about urine culture results on Sat
== END 2021-08-08 11:55 | disposition home or self-care (01) ==
PROVIDERS: Emergency Provider Nurse Practitioner
DX: R35.0 Frequency of micturition (principal); M54.50 Low back pain, unspecified; E78.5 Hyperlipidemia, unspecified; N80.9 Endometriosis, unspecified; G47.33 Obstructive sleep apnea (adult) (pediatric); Z87.891 Personal history of nicotine dependence
CPT/HCPCS: 81003; 87086; 99213; G0463

== ENCOUNTER 2021-11-03 10:36 | Emergency (ER) | payer OTHER, SELFPAY ==
[2021-11-03] VITALS (14 sets, daily range): BP systolic 123–182; BP diastolic 61–99; PULSE 61–86; RESP 12–24; TEMP 36.6–36.9; O2SAT 96–99
--- NOTE | ~2021-11-03 | CT_ITS ---
EXAMINATION: CT abdomen pelvis wo con DATE: 11/03/2021 12:23 INDICATION: Right flank pain TECHNIQUE: Computed tomography (CT) of the abdomen and pelvis was performed without intravenous contr ast. The dose-length product was 1456.87 mGy-cm. Automated exposure control and iterative reconstruct ion technique were employed. COMPARISON: No prior studies for comparison. FINDINGS: Lung bases are unremarkable. Cardiomegaly. No significant pleural or pericardial effusion.. Heart size is normal. No significant vascular abnormality. No lymphadenopathy. Small fat-containing umbilical hernia. The liver, spleen, pancreas, adrenal glands and kidneys are unremarkable. No hydronephrosis. There is splenosis. Gallbladder is present. Nonobstructive bowel gas pattern. No abnormal pelvic masses or fl uid collections. No free air or free fluid. Status post hysterectomy. Normal appendix. No acute osseo us abnormality. IMPRESSION: 1. No acute abdominal abnormality. Reviewed, dictated and finalized at location A.
[2021-11-03 11:27] LABS: Basophils Absolute Auto 0.1 K/mm3 (0.0-0.1); Basophils Percent Auto 0.4 % (0.2-1.2); Eosinophils Absolute Auto 0.2 K/mm3 (0-0.3); Eosinophils Percent Auto 1.9 % (0-4.4); Hematocrit 38.1 % (37.0-47.0); Hemoglobin 12.8 g/dL (12.0-15.0); Immature Granulocyte Absolute 0.05 K/mm3 (0.00-0.031); Immature Granulocyte Percent A 0.4 % (0-0.5); Lymphocytes Absolute Auto 2.88 K/mm3 (0.9-3.2); Lymphocytes Percent Auto 24.7 % (18.3-44.2); Mean Corpuscular HGB Conc 33.6 g/dl (32-36); Mean Corpuscular Hemoglobin 28.7 pg (26-34); Mean Corpuscular Volume 85.4 fl (80-100); Mean Platelet Volume 9.5 fl (7.4-10.4); Monocytes Absolute Auto 0.8 K/mm3 (0.1-0.6); Monocytes Percent Auto 6.4 % (2.6-8.5); Neutrophils Absolute Auto 7.7 K/mm3 (1.3-6.7); Neutrophils Percent Auto 66.2 % (45.5-73.1); Platelet Count Result 346 k/mm3 (150-375); Red Blood Count 4.46 M/mm3 (4.2-5.4); Red Cell Distribution Width 13.2 % (11.5-14.5); White Blood Count 11.7 K/mm3 (4.5-10.0)
[2021-11-03 11:28] LABS: Appearance Urine Clear (Clear); Bilirubin Urine 1+ (Negative); Blood Urine 2+ (Negative); Color Urine Yellow (Yellow); Glucose Urine UA Negative (Negative); Ketones Urine Negative (Negative); Leukocyte Esterase Ur Negative LEU/UL (Negative); Nitrate Urine Negative (Negative); Protein Urine 2+ mg/dL (Negative); Urobilinogen Urine 0.2 mg/dL (<2.0)
[2021-11-03 11:32] LABS: Bacteria Urine Trace /hpf; Mucus Urine Rare /lpf; Squamous Epithelial Cell Urine Many /hpf (Few); WBC Urine 0-3 /hpf
[2021-11-03 11:39] LABS: Add Urine Microscopic? YES
[2021-11-03 11:39] LABS: Alanine Aminotransferase 23 U/L (6-35); Albumin Level 4.6 g/dL (3.5-5.1); Alkaline Phosphatase 101 U/L (38-126); Anion Gap 11 mmol/L (8-16); Aspartate Amino Transferase 30 U/L (14-36); Bilirubin,Total 0.3 mg/dL (0.2-1.3); Blood Urea Nitrogen 12 mg/dL (7-17); Calcium 9.2 mg/dL (8.4-10.2); Carbon Dioxide 27 mmol/L (22-30); Chloride 104 mmol/L (98-107); Estimated CRCL calculation 101 ml/min; Estimated Glomerular Filt Rate > 60; Glucose 123 mg/dL (65-110); Potassium 3.5 mmol/L (3.4-5.0); Sodium 142 mmol/L (137-145)
[2021-11-03] MEDS: SODIUM CHLORIDE 0.9% IV 1,000 ML 999 ML IV CONT (11:47)
[2021-11-03] MEDS: ONDANSETRON INJ 4 MG/2 ML VIAL IV PUSH (11:47)
[2021-11-03 12:27] LABS: Lipase 126 U/L (23-300)
--- NOTE | 2021-11-03 13:00 | ED.ABDPAIN ---
HPI - Abdominal Pain General Chief Complaint: Abdominal Pain Stated Complaint: ABD PAIN Time Seen by Provider: 11/03/21 11:05 History of Present Illness HPI narrative: Patient is a 36-year-old female who presents ER with abdominal pain. Right-sided cramping and sharp at times. Began this morning. Associate with some achiness in the low back. She reports urinary frequency but no dysuria. No fevers or chills or sweats. She has some mild nausea but no vomiting. No history of kidney stones. Related Data Home Medications Medication Instructions Recorded Confirmed fenofibrate 160 mg tablet tablet 08/08/21 09/11/21 ibuprofen 800 mg tablet tablet 08/08/21 09/11/21 omeprazole 40 mg capsule,delayed cap 08/08/21 09/11/21 release sotalol 80 mg tablet tablet 08/08/21 09/11/21 triamterene 75 tablet 08/08/21 09/11/21 mg-hydrochlorothiazide 50 mg tablet Allergies Allergy/AdvReac Type Severity Reaction Status Date / Time hydrocodone Allergy Severe throat Verified 11/03/21 11:25 closes Review of Systems Review of Systems: All systems reviewed & are unremarkable except as noted in HPI and below Constitutional: Constitutional: Denies chills, Denies fatigue and Denies fever(s) ENT: Denies nasal congestion and Denies sore throat Cardiovascular: Cardiovascular: Denies chest pain, Denies rapid heart rate and Denies radiating jaw, neck or arm pain Respiratory: Respiratory: Denies cough and Denies dyspnea Gastrointestinal: Gastrointestinal: Reports abdominal pain, Denies diarrhea, Reports nausea and Denies vomiting Genitourinary: Genitourinary: Reports nocturia and Denies dysuria Musculoskeletal: Musculoskeletal: Reports back pain, Denies arthralgias and Denies joint swelling [facility] Past Medical History Medical History Anxiety Dyslipidemia Endometriosis Migraine headache Obstructive sleep apnea on CPAP Supraventricular tachycardia Vitamin D deficiency Surgical History Surgical History History of dilation and curettage History of hysterectomy With unilateral salpingo-oophorectomy. History of laparoscopy With destruction of endometriosis. History of tubal ligation Family History Family History Father Diabetes mellitus Family history of congestive heart failure Mother Atrial fibrillation Social History Social History Social History: Surrogate decision maker: Mariam Chavarria, . Code status: Full code. Smoking packs per day: 1 Smoking cigarettes per day: 20.0 Years smoked: 7 Smoking pack-years: 7.00 Smoking status: Former smoker Alcohol intake: never Substance use: never Additional living arrangements comments: Resides in [place] with her and 3 children. 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 Gender identity (if verbalized by the patient): Female Spiritual care concerns: No Exam Narrative: GENERAL: Well-appearing, morbidly obese, and in no acute distress. HEAD: Normocephalic, atraumatic. CHEST: Clear to auscultation. No respiratory distress. HEART: Regular rate and rhythm. Normal peripheral pulses. ABDOMEN: Soft, nontender, nondistended. Back: No midline tenderness, mild right lower lumbar tenderness without spasm. EXTREMITIES: Normal range of motion. No edema. SKIN: Warm, dry, no rash. NEURO: Alert and oriented x3. PSYCH: Normal mood and affect. Course Course Emergency Course: Pain improved with Toradol. Nothing acute on imaging. Discharge home with supportive care for Vital Signs Vital signs: Vital Signs Temperature 97.9 F 11/03/21 10:54 Pulse Rate 79 11/03/21 10:54 Respiratory Rate 12 11/03/21 10:54 Blood Pressure 125/72 11/03/21 10:54 Pulse Oximetry 99
[2021-11-03] MEDS: KETOROLAC 30 MG/ML VIAL (*BKC) IV PUSH (13:34)
== END 2021-11-03 15:00 | disposition home or self-care (01) ==
PROVIDERS: Emergency Provider Emergency Medicine
DX: R10.30 Lower abdominal pain, unspecified (principal); M54.50 Low back pain, unspecified
CPT/HCPCS: 36415; 74176; 80053; 81001; 81025; 83690; 85025; 96361; 96374; 96375; 99284; J1885; J2405; J7030

== ENCOUNTER 2021-11-28 08:02 | Emergency (ER) | payer OTHER, SELFPAY ==
--- NOTE | 2021-11-28 08:05 | ED.URI ---
HPI - URI/Sore Throat General Chief Complaint: Upper Respiratory Infection Stated Complaint: Sore Throat Time Seen by Provider: 11/28/21 08:11 Source: patient, RN notes reviewed and old records reviewed Mode of arrival: ambulatory Limitations: no limitations History of Present Illness HPI Narrative: 36-year-old female presents to the [facility] with complaints of a sore throat for 2 to 3 days. Denies any chest pain or abdominal pain. Denies any shortness of breath. Denies any sinus drainage or ear pain. Denies fevers. No treatment prior to arrival MD elicited complaint: sore throat Onset (ago): day(s) (2-3) Consistency: constant Severity: mild Able to tolerate fluids by mouth: Yes Exacerbating factors: swallowing Relieving factors: nothing Treatments prior to arrival: none Related Data Home Medications Medication Instructions Recorded Confirmed omeprazole 40 mg capsule,delayed 40 mg PO DAILY 08/08/21 11/28/21 release triamterene 75 1 tablet PO DAILY 08/08/21 11/28/21 mg-hydrochlorothiazide 50 mg tablet Allergies Allergy/AdvReac Type Severity Reaction Status Date / Time hydrocodone Allergy Severe throat Verified 11/03/21 11:25 closes Review of Systems Review of Systems: All systems reviewed & are unremarkable except as noted in HPI and below Constitutional: Constitutional: Reports no additional constitutional complaints, Denies chills and Denies fever(s) Eyes: Eyes: Reports no additional eye complaints ENT: Reports as per HPI and Reports sore throat Cardiovascular: Cardiovascular: Reports no additional cardiovascular complaints Respiratory: Respiratory: Reports no additional respiratory complaints Gastrointestinal: Gastrointestinal: Reports no additional gastrointestinal complaints Musculoskeletal: Musculoskeletal: Reports no additional musculoskeletal complaints Integumentary/Breasts: Skin/Breast: Reports system reviewed and no additional complaints, except as docu Neurologic: Reports system reviewed and no additional complaints, except as documented Psychiatric: Psychiatric: Reports no additional psychiatric complaints Allergic/Immunologic: Allergic/Immunologic: Reports no additional allergic/immunologic complaints PMFSH Past Medical History Medical History Anxiety Dyslipidemia Endometriosis Migraine headache Obstructive sleep apnea on CPAP Supraventricular tachycardia Vitamin D deficiency Surgical History Surgical History History of dilation and curettage History of hysterectomy With unilateral salpingo-oophorectomy. History of laparoscopy With destruction of endometriosis. History of tubal ligation Family History Family History Father Diabetes mellitus Family history of congestive heart failure Mother Atrial fibrillation Social History Social History Social History: Surrogate decision maker: Mariam Chavarria, . Code status: Full code. Smoking packs per day: 1 Smoking cigarettes per day: 20.0 Years smoked: 7 Smoking pack-years: 7.00 Smoking status: Former smoker Alcohol intake: never Substance use: never Additional living arrangements comments: Resides in [place] with her and 3 children. 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 Gender identity (if verbalized by the patient): Female Spiritual care concerns: No Comments At the time of my signature, I reviewed and agree with the nursing past medical, surgical, social, and family history. There is no relevant family history pertinent to the patient complaint. Exam Const: General: healthy appearing, no acute distress, alert and well nourished Nutritional Appearance: well nourished and obese Orientation/consciousne
[2021-11-28 08:11] VITALS: BP 152/96; PULSE 65; RESP 18; TEMP 36.2; O2SAT 100
[2021-11-28 08:20] VITALS: BP 152/96; PULSE 65; RESP 18; TEMP 36.2; O2SAT 100
== END 2021-11-28 08:39 | disposition home or self-care (01) ==
PROVIDERS: Emergency Provider Nurse Practitioner
DX: J03.90 Acute tonsillitis, unspecified (principal); Z87.891 Personal history of nicotine dependence; E78.5 Hyperlipidemia, unspecified; N80.9 Endometriosis, unspecified; G47.33 Obstructive sleep apnea (adult) (pediatric)
CPT/HCPCS: 87081; 87880; 99213; G0463

== ENCOUNTER 2021-12-05 09:07 | Emergency (ER) | payer OTHER, SELFPAY ==
[2021-12-05 09:24] VITALS: BP 145/98; PULSE 120; RESP 16; TEMP 38.7; O2SAT 96
--- NOTE | 2021-12-05 09:35 | ED.URI ---
HPI - URI/Sore Throat General Chief Complaint: Upper Respiratory Infection Stated Complaint: cold sx Time Seen by Provider: 12/05/21 09:35 Source: patient, RN notes reviewed and old records reviewed Mode of arrival: ambulatory Limitations: no limitations History of Present Illness HPI Narrative: 36-year-old female presents to the [facility] with her daughter with complaints of generalized body aches, fever, cough since yesterday. No treatment prior to arrival. Denies chest pain or abdominal pain. States that she is drinking fluids without issue. Related Data Home Medications Medication Instructions Recorded Confirmed omeprazole 40 mg capsule,delayed 40 mg PO DAILY 08/08/21 12/05/21 release triamterene 75 1 tablet PO DAILY 08/08/21 12/05/21 mg-hydrochlorothiazide 50 mg tablet Allergies Allergy/AdvReac Type Severity Reaction Status Date / Time hydrocodone Allergy Severe throat Verified 12/05/21 09:42 closes Review of Systems Review of Systems: All systems reviewed & are unremarkable except as noted in HPI and below Constitutional: Constitutional: Reports as per HPI, Reports chills, Reports fatigue and Reports fever(s) Eyes: Eyes: Reports no additional eye complaints ENT: Reports as per HPI Cardiovascular: Cardiovascular: Reports no additional cardiovascular complaints Respiratory: Respiratory: Reports no additional respiratory complaints Gastrointestinal: Gastrointestinal: Reports no additional gastrointestinal complaints Musculoskeletal: Musculoskeletal: Reports no additional musculoskeletal complaints Integumentary/Breasts: Skin/Breast: Reports system reviewed and no additional complaints, except as docu Neurologic: Reports system reviewed and no additional complaints, except as documented Psychiatric: Psychiatric: Reports no additional psychiatric complaints Allergic/Immunologic: Allergic/Immunologic: Reports no additional allergic/immunologic complaints [facility] Past Medical History Medical History Anxiety Dyslipidemia Endometriosis Migraine headache Obstructive sleep apnea on CPAP Supraventricular tachycardia Vitamin D deficiency Surgical History Surgical History History of dilation and curettage History of hysterectomy With unilateral salpingo-oophorectomy. History of laparoscopy With destruction of endometriosis. History of tubal ligation Family History Family History Father Diabetes mellitus Family history of congestive heart failure Mother Atrial fibrillation Social History Social History Social History: Surrogate decision maker: Mariam Chavarria, . Code status: Full code. Smoking packs per day: 1 Smoking cigarettes per day: 20.0 Years smoked: 7 Smoking pack-years: 7.00 Smoking status: Former smoker Alcohol intake: never Substance use: never Additional living arrangements comments: Resides in [place] with her and 3 children. 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 Gender identity (if verbalized by the patient): Female Spiritual care concerns: No Comments At the time of my signature, I reviewed and agree with the nursing past medical, surgical, social, and family history. There is no relevant family history pertinent to the patient complaint. Exam Const: General: no acute distress, alert, ill appearing acutely (Mild) and well nourished Nutritional Appearance: well nourished and obese Orientation/consciousness: patient oriented x3 Limitations: no limitations HENMT: Head: normal to inspection Ears: external ears normal, TM's normal bilaterally and EAC's normal Face/Nose/Sinus: Normal external nose present and Normal nares present Face and sinus: normal facial exam
== END 2021-12-05 09:55 | disposition home or self-care (01) ==
PROVIDERS: Emergency Provider Nurse Practitioner
DX: J10.1 Influenza due to other identified influenza virus with other respiratory manifestations (principal); E78.5 Hyperlipidemia, unspecified; G47.33 Obstructive sleep apnea (adult) (pediatric); E55.9 Vitamin D deficiency, unspecified; Z87.891 Personal history of nicotine dependence
CPT/HCPCS: 87804; 99213; G0463

== ENCOUNTER 2022-01-22 07:53 | Outpatient (CLI) | payer OTHER, SELFPAY ==
[2022-01-22 08:21] LABS: Alanine Aminotransferase 19 U/L (6-35); Albumin Level 4.5 g/dL (3.5-5.1); Alkaline Phosphatase 79 U/L (38-126); Anion Gap 6 mmol/L (8-16); Aspartate Amino Transferase 26 U/L (14-36); Bilirubin,Total 0.2 mg/dL (0.2-1.3); Blood Urea Nitrogen 16 mg/dL (7-17); Calcium 8.8 mg/dL (8.4-10.2); Carbon Dioxide 30 mmol/L (22-30); Chloride 101 mmol/L (98-107); Cholesterol 157 mg/dL (0-200); Estimated Glomerular Filt Rate > 60; Glucose 124 mg/dL (65-110); HDL Direct 26 mg/dL; Potassium 4.1 mmol/L (3.4-5.0); Sodium 137 mmol/L (137-145); Triglycerides 347 mg/dL (<150)
[2022-01-22 08:32] LABS: LDL Cholesterol Direct 74 mg/dL
== END 2022-01-22 07:54 | disposition home or self-care (01) ==
PROVIDERS: Visit Provider Internal Medicine Cardiovascular Disease
DX: E78.5 Hyperlipidemia, unspecified (principal)
CPT/HCPCS: 36415; 80053; 80061

== ENCOUNTER 2022-02-13 05:25 | Emergency (ER) | payer OTHER, SELFPAY ==
--- NOTE | ~2022-02-13 | XR_ITS ---
Clinical Indication: Chest pain PA and lateral views of the chest: Comparison: 12/08/2020 Findings: The lungs are clear, without evidence of focal consolidation or pleural effusion. Cardiome diastinal silhouette is within normal limits. Bones and soft tissues are unremarkable. Impression: Normal chest. Reviewed, dictated and finalized at [facility]. TION SAFETY OFFICER Impression: Normal chest.
--- NOTE | ~2022-02-13 | US_ITS ---
Limited Abdominal Sonogram: Real-time sonographic imaging of the right upper quadrant was performed. Clinical History: Gallbladder disease Findings: The liver appears normal with no evidence of mass lesion or bile duct dilatation. Main por raisa vein demonstrates normal direction of flow. The gallbladder is well distended, and contains a 2 c m echogenic, shadowing gallstone near the gallbladder neck. No gallbladder wall thickening. The commo n bile duct measures 8 mm. The visualized pancreas, aorta, and IVC are unremarkable. Impression: Cholelithiasis. Mildly dilated common bile duct. Correlate with liver function tests. Consider MRCP as indicated. Reviewed, dictated and finalized at [facility]. IC TILE MAKER Impression: Cholelithiasis. Mildly dilated common bile duct. Correlate with liver function tests. Consider MRCP as indicated.
[2022-02-13 05:30] VITALS: BP 145/79; PULSE 79; RESP 18; TEMP 36.7; O2SAT 99
--- NOTE | 2022-02-13 05:32 | ECG_ITS ---
Measurements Intervals [place] Rate: 66 P: 34 UT: 147 QRS: 7 QRSD: 95 T: 36 QT: 412 QTc: 433 Interpretive Statements SINUS RHYTHM DELAYED PRECORDIAL R/S TRANSITION CONSIDER INFERIOR INFARCT, AGE INDETERMINATE ABNORMAL ECG COMPARED TO ECG 12/08/2020 13:17:20 NO SIGNIFICANT CHANGES Electronically Signed On 02-13-2022 8:01:47 TRANSFORMATION CONSULTANT by Tyler Julian D.O.
[2022-02-13 05:39] VITALS: PULSE 68
[2022-02-13] MEDS: ASPIRIN 81 MG CHEWABLE TABLET 324 MG PO (05:43)
--- NOTE | 2022-02-13 05:51 | ED.GENADULT ---
HPI - General Adult General Chief complaint: Chest Pain <Lenin Boyer MD - Last Filed: 02/20/22 06:53> Stated complaint: chest pain <Lenin Boyer MD - Last Filed: 02/20/22 06:53> Time Seen by Provider: 02/13/22 05:42 <Lenin Boyer MD - Last Filed: 02/20/22 06:53> History of Present Illness HPI narrative: 36-year-old female history of prior DVT, SVT and paroxysmal atrial fibrillation presenting to the emergency department for evaluation of right-sided chest pain and nausea and vomiting. Patient reports that the symptoms have been intermittent but did start last night when she was at rest. Patient denies any radiation of the pain to her neck back or jaw. Patient states she also is having some upper abdominal pain. Patient does have prior history of gallstones and kidney stones.. <Lenin Boyer MD - Last Filed: 02/20/22 06:53> Related Data Home medications: Home Medications Medication Instructions Recorded Confirmed omeprazole 40 mg capsule,delayed 40 mg PO DAILY 08/08/21 12/05/21 release triamterene 75 1 tablet PO DAILY 08/08/21 12/05/21 mg-hydrochlorothiazide 50 mg tablet <Lenin Boyer MD - Last Filed: 02/20/22 06:53> Allergies/adverse reactions: Allergies Allergy/AdvReac Type Severity Reaction Status Date / Time hydrocodone Allergy Severe throat Verified 02/13/22 05:40 closes <Lenin Boyer MD - Last Filed: 02/20/22 06:53> Review of Systems Review of Systems: CONSTITUTIONAL: Denies fever, chills, or sweats. EYES: Denies visual changes, redness, or discharge. ENT: Denies rhinorrhea, congestion, sore throat, or otalgia. CARDIOVASCULAR: See HPI RESPIRATORY: Denies cough or dyspnea. GASTROINTESTINAL: See HPI GENITOURINARY: Denies dysuria or hematuria. SKIN: Denies rash or itching. MUSCULOSKELETAL: Denies back pain, joint pain, or myalgia. NEUROLOGIC: Denies headache, numbness, or weakness. <Lenin Boyer MD - Last Filed: 02/20/22 06:53> [facility] Past Medical History Medical History: Medical History Anxiety Dyslipidemia Endometriosis Migraine headache Obstructive sleep apnea on CPAP Supraventricular tachycardia Vitamin D deficiency <Lenin Boyer MD - Last Filed: 02/20/22 06:53> Surgical History Surgical History: Surgical History History of dilation and curettage History of hysterectomy With unilateral salpingo-oophorectomy. History of laparoscopy With destruction of endometriosis. History of tubal ligation <Lenin Boyer MD - Last Filed: 02/20/22 06:53> Family History Family History: Family History Father Diabetes mellitus Family history of congestive heart failure Mother Atrial fibrillation <Lenin Boyer MD - Last Filed: 02/20/22 06:53> Social History Social History: Social History Social History: Surrogate decision maker: Mariam Chavarria, . Code status: Full code. Smoking packs per day: 1 Smoking cigarettes per day: 20.0 Years smoked: 7 Smoking pack-years: 7.00 Smoking status: Former smoker Alcohol intake: never Substance use: never Additional living arrangements comments: Resides in [place] with her and 3 children. Additional occupation/education comments: Works in housekeeping at [employer]. Gender identity (if verbalized by the patient): Female Spiritual care concerns: No <Lenin Boyer MD - Last Filed: 02/20/22 06:53> Course Course Emergency Course: Patient was complaining of right-sided chest pain. Patient is afebrile but does have a leukocytosis 11.0. Patient's labs are similar to her baseline with a slightly elevated creatinine. Patient's initial troponin was negative. Patient's D-dimer was
[2022-02-13 05:52] LABS: Basophils Absolute Auto 0.1 K/mm3 (0.0-0.1); Basophils Percent Auto 0.8 % (0.2-1.2); Eosinophils Absolute Auto 0.2 K/mm3 (0-0.3); Eosinophils Percent Auto 1.7 % (0-4.4); Hematocrit 40.4 % (37.0-47.0); Hemoglobin 13.1 g/dL (12.0-15.0); Immature Granulocyte Absolute 0.04 K/mm3 (0.00-0.031); Immature Granulocyte Percent A 0.4 % (0-0.5); Lymphocytes Absolute Auto 2.91 K/mm3 (0.9-3.2); Lymphocytes Percent Auto 26.5 % (18.3-44.2); Mean Corpuscular HGB Conc 32.4 g/dl (32-36); Mean Corpuscular Hemoglobin 28.5 pg (26-34); Mean Corpuscular Volume 87.8 fl (80-100); Mean Platelet Volume 9.5 fl (7.4-10.4); Monocytes Absolute Auto 0.9 K/mm3 (0.1-0.6); Monocytes Percent Auto 8.5 % (2.6-8.5); Neutrophils Absolute Auto 6.8 K/mm3 (1.3-6.7); Neutrophils Percent Auto 62.1 % (45.5-73.1); Platelet Count Result 370 k/mm3 (150-375); Red Cell Distribution Width 13.3 % (11.5-14.5)
[2022-02-13 06:05] LABS: Alanine Aminotransferase 24 U/L (6-35); Albumin Level 4.7 g/dL (3.5-5.1); Alkaline Phosphatase 80 U/L (38-126); Anion Gap 8 mmol/L (8-16); Aspartate Amino Transferase 26 U/L (14-36); Bilirubin,Total 0.4 mg/dL (0.2-1.3); Blood Urea Nitrogen 19 mg/dL (7-17); Calcium 9.6 mg/dL (8.4-10.2); Carbon Dioxide 29 mmol/L (22-30); Chloride 99 mmol/L (98-107); Estimated CRCL calculation 81 ml/min; Estimated Glomerular Filt Rate 56; Glucose 141 mg/dL (65-110); Lipase 122 U/L (23-300); Potassium 3.9 mmol/L (3.4-5.0); Sodium 136 mmol/L (137-145)
[2022-02-13 06:15] LABS: Troponin I < 0.012 ng/mL (0.000-0.034)
[2022-02-13 06:20] LABS: Prothrombin Time 13.1 Seconds (11.1-14.7)
[2022-02-13 06:21] LABS: Partial Thromboplastin Time 28.2 SECONDS (22.3-36.8)
[2022-02-13 06:35] LABS: Influenza A QL RT-PCR Negative (Negative); Influenza B QL RT-PCR Negative (Negative); RSV RNA, RT-PCR Negative (Negative); SARS-CoV-2 RNA PCR Negative
[2022-02-13] MEDS: fentaNYL CITRATE INJ (*CRX) 100 MCG/2 ML VIAL 50 MCG IV PUSH (06:45)
[2022-02-13] MEDS: ONDANSETRON INJ 4 MG/2 ML VIAL IV PUSH (06:46)
[2022-02-13 06:59] LABS: D Dimer 0.41 ug/mL (<0.48)
[2022-02-13 07:53] VITALS: BP 117/75; PULSE 60; RESP 16; O2SAT 98
[2022-02-13] MEDS: SODIUM CHLORIDE 0.9% IV 1,000 ML 999 ML IV CONT ×2 (07:54)
[2022-02-13 09:04] LABS: Troponin I < 0.012 ng/mL (0.000-0.034)
[2022-02-13 09:08] VITALS: BP 136/80; PULSE 48; RESP 16; O2SAT 98
[2022-02-13 11:09] VITALS: BP 127/85; PULSE 49; RESP 16; O2SAT 97
== END 2022-02-13 11:53 | disposition home or self-care (01) ==
PROVIDERS: Emergency Medicine; Emergency Provider Emergency Medicine
DX: R07.9 Chest pain, unspecified (principal); K80.20 Calculus of gallbladder without cholecystitis without obstruction; Z20.822 Contact with and (suspected) exposure to COVID-19; I48.0 Paroxysmal atrial fibrillation; E78.5 Hyperlipidemia, unspecified; N80.9 Endometriosis, unspecified; G47.33 Obstructive sleep apnea (adult) (pediatric); E55.9 Vitamin D deficiency, unspecified; Z90.710 Acquired absence of both cervix and uterus; Z90.721 Acquired absence of ovaries, unilateral; Z90.79 Acquired absence of other genital organ(s); Z86.718 Personal history of other venous thrombosis and embolism; Z87.891 Personal history of nicotine dependence
CPT/HCPCS: 36415; 71046; 76705; 80053; 83690; 84484; 85025; 85380; 85610; 85730; 87637; 93005; 96361; 96374; 96375; 99284; A9270; J2405; J3010; J7030

== ENCOUNTER 2022-03-13 09:24 | Outpatient (CLI) | payer OTHER, SELFPAY ==
[2022-03-13 10:27] LABS: Amylase 50 U/L (30-110)
== END 2022-03-13 09:25 | disposition home or self-care (01) ==
LOC: ANHSURGERY 09:29
PROVIDERS: Visit Provider Surgery
DX: K80.10 Calculus of gallbladder with chronic cholecystitis without obstruction (principal); Z01.818 Encounter for other preprocedural examination
CPT/HCPCS: 36415; 82150; 86850; 86900; 86901

== ENCOUNTER 2022-03-21 01:32 | Day surgery (SDC) | payer OTHER, SELFPAY ==
[2022-03-11 10:05] VITALS: BMI 57.6
--- NOTE | 2022-03-11 10:10 | PC.NURSE ---
Report to the Outpatient Waiting Room, entrance under the green pavilion located off [facility], at time 8:30 on date 03/21/22. Planned Procedure Time: 10:30. Time changes happen often and if your time is changed the preop area will call you the afternoon before. - You and your visitor will be asked to self-screen and do not enter if you have any COVID symptoms. - Only one visitor is requested with a max of two and NO children visitors are allowed at this time. - The patient visitor may be requested to leave or wait in car when not with patient due to distancing restrictions. - A mask is optional within the hospital at this time. Patients may have clear liquids (water, carbonated beverages, clear teas, apple juice) until 3 hours prior to surgery (7:30) with a maximum of 20 ounces. - No food from midnight until time of surgery Take the following medications with a SIP of water the morning of surgery: SOTALOL DO NOT STOP ANY OF YOUR OTHER PRESCRIPTION MEDICATIONS PRIOR TO SURGERY?EXCEPT THE FOLLOWING Medications to discontinue per physician: VITAMINS/SUPPLEMENTS Date to take last dose: 03/17/22 Please no make-up, nail sinhala, hairspray, perfume, deodorant, or body powder the day of surgery. No jewelry (including any body piercings) or valuables the day of surgery, leave them at home. Please take a shower or bath the night before, or the morning of, surgery with an antibacterial soap (HIBICLENS). Wear comfortable, loose fitting clothing. - Jewelry must be removed prior to entering the operating room. Rings and piercings that are not removed may be cut off. - The hospital will not accept responsibility for valuables. - Please leave all valuables, including medications, at home the day of surgery. If you are going home after surgery, a licensed ups driver must drive you home. - NO public transportation without another adult if you receive anesthesia. - We recommend that an adult stay with you for 24 hours following discharge. - We also recommend that you do not drive, make important decision, drink alcoholic beverages, or take any drugs that were not prescribed by your health care provider for at least 24 hours after your discharge time. Follow any additional instructions given to you from your surgeon. If you or anyone in your household have experienced Covid symptoms in the past week, please notify your surgeon or the nurse liaison at the phone number below for possible testing. Telephone instructions given to PT - ULPILLO LEMUS and asked if any additional questions and then verbalized understanding. Patient advised to call surgeon office or pre surgery nurse liaison [phone] if any additional questions.
--- NOTE | 2022-03-20 13:34 | WPDANESEPPF ---
Anes - Initial Pre Proc Eval Procedure: Operation Date: 03/21/22 11:00 Proposed Procedures p Robotic Assisted Laparoscopic Cholecystectomy, Possible Open - Juan C Tripathi MD Date/Time: 03/20/22 13:34 Surgeon: Juan C Tripathi MD Pre Op Diagnosis: chronic cholecystitis secondary to gallstones Patient Data Age: 36 Gender: F Height: 1.55 m Weight: 138.35 kg Allergies Allergy/AdvReac Type Severity Reaction Status Date / Time hydrocodone Allergy Severe throat Verified 03/19/22 09:14 closes Home Medications Medication Instructions Recorded Confirmed Type aspirin 81 mg chewable tablet 81 mg PO DAILY@0800 #30 tabs 12/28/19 03/19/22 Rx (Children's Aspirin) omeprazole 40 mg capsule,delayed 40 mg PO DAILY 08/08/21 03/19/22 History release triamterene 75 1 tablet PO DAILY 08/08/21 03/19/22 History mg-hydrochlorothiazide 50 mg tablet omega 0-gug-see-fish oil 100 See Rx Instructions PO .COMPLEX 01/22/22 03/19/22 Rx mg-160 mg-1,000 mg capsule (Fish #180 caps Oil) cholecalciferol (vitamin D3) 50 50 mcg PO DAILY 02/25/22 03/19/22 History mcg (2,000 unit) capsule fenofibrate 160 mg tablet 160 mg PO DAILY 02/25/22 03/19/22 History oxybutynin chloride 10 mg 10 mg PO DAILY 02/25/22 03/19/22 History tablet,extended release 24 hr sotalol 80 mg tablet 80 mg PO DAILY 02/25/22 03/19/22 History Results Review: All pre-operative results and documents have been reviewed as part of the pre-operative evaluation. [facility] Past Medical History Medical History Anxiety Dyslipidemia Endometriosis Migraine headache Obstructive sleep apnea on CPAP Paroxysmal atrial fibrillation Supraventricular tachycardia Vitamin D deficiency Surgical History Surgical History History of dilation and curettage History of hysterectomy laparoscopic, with unilateral salpingo-oophorectomy. History of laparoscopy With destruction of endometriosis. History of tubal ligation Family History Family History Father Diabetes mellitus Family history of congestive heart failure Hypertension Mother Atrial fibrillation Hypertension Sibling Diabetes mellitus Hypertension Social History Social History Social History: Surrogate decision maker: Mariam Chavarria, . Code status: Full code. Smoking packs per day: 1 Smoking cigarettes per day: 20.0 Years smoked: 8 Smoking pack-years: 8.00 Smoking status: Former smoker Tobacco type: cigarettes Smoking end date: 02/10/16 Alcohol intake: never Substance use: current Substance use type: marijuana Other substance usage details: EDIBLES FOR MIGRAINES Living arrangements: with family Additional living arrangements comments: Resides in [place] with her and 3 children. Occupation/Education: occupation Additional occupation/education comments: Works in [employer] at [employer]. Gender identity (if verbalized by the patient): Female Spiritual care concerns: No Anes - Eval Final PreProcedure Day of Procedure 03/20/22 13:34 Results Review: All pre-operative results and documents have been reviewed as part of the pre-operative evaluation. Informed Consent: The patient's anesthetic plan and its attendant risks and benefits were discussed with the patient/family/POA. Questions were solicited and answers provided to the satisfaction of the patient/family/POA.
[2022-03-21] VITALS (13 sets, daily range): BP systolic 125–161; BP diastolic 78–111; PULSE 59–74; RESP 11–23; TEMP 36.5–36.8; O2SAT 94–98
[2022-03-21] MEDS: LACTATED RINGERS 1,000 ML 30 ML IV CONT ×2 (09:40→13:36)
[2022-03-21] MEDS: INDOCYANINE GREEN 25 MG VIAL 3.75 MG IV PUSH (09:41)
[2022-03-21] MEDS: ACETAMINOPHEN 500 MG TABLET 1000 MG PO ×2 (09:53→14:58)
[2022-03-21] MEDS: KETOROLAC 15 MG/ML VIAL (*BKC) IV PUSH (09:53)
--- NOTE | 2022-03-21 10:03 | WPDANESEPPF ---
Anes - Initial Pre Proc Eval Procedure: Operation Date: 03/21/22 11:00 Proposed Procedures p Robotic Assisted Laparoscopic Cholecystectomy, Possible Open - Juan C Tripathi MD Date/Time: 03/21/22 10:03 Surgeon: Juan C Tripathi MD Pre Op Diagnosis: chronic cholecystitis secondary to gallstones Patient Data Age: 36 Gender: F Height: 1.55 m Weight: 132.1 kg Allergies Allergy/AdvReac Type Severity Reaction Status Date / Time hydrocodone Allergy Severe Swelling Verified 03/21/22 09:25 of Lip/Tongue/Throat Home Medications Medication Instructions Recorded Confirmed Type aspirin 81 mg chewable tablet 81 mg PO DAILY@0800 #30 tabs 12/28/19 03/21/22 Rx (Children's Aspirin) omeprazole 40 mg capsule,delayed 40 mg PO DAILY 08/08/21 03/21/22 History release triamterene 75 1 tablet PO DAILY 08/08/21 03/21/22 History mg-hydrochlorothiazide 50 mg tablet omega 6-xay-brj-fish oil 100 See Rx Instructions PO .COMPLEX 01/22/22 03/21/22 Rx mg-160 mg-1,000 mg capsule (Fish #180 caps Oil) cholecalciferol (vitamin D3) 50 50 mcg PO DAILY 02/25/22 03/21/22 History mcg (2,000 unit) capsule fenofibrate 160 mg tablet 160 mg PO DAILY 02/25/22 03/21/22 History oxybutynin chloride 10 mg 10 mg PO DAILY 02/25/22 03/21/22 History tablet,extended release 24 hr sotalol 80 mg tablet 80 mg PO DAILY 02/25/22 03/21/22 History Patient hx anesthesia problems: post op nausea/vomiting Family hx anesthesia problems: post op nausea/vomiting Results Review: All pre-operative results and documents have been reviewed as part of the pre-operative evaluation. [facility] Past Medical History Medical History Anxiety Dyslipidemia Endometriosis Migraine headache Obstructive sleep apnea on CPAP Paroxysmal atrial fibrillation Supraventricular tachycardia Vitamin D deficiency Surgical History Surgical History History of dilation and curettage History of hysterectomy laparoscopic, with unilateral salpingo-oophorectomy. History of laparoscopy With destruction of endometriosis. History of tubal ligation Family History Family History Father Diabetes mellitus Family history of congestive heart failure Hypertension Mother Atrial fibrillation Hypertension Sibling Diabetes mellitus Hypertension Social History Social History Social History: Surrogate decision maker: Mariam Chavarria, . Code status: Full code. Smoking packs per day: 1 Smoking cigarettes per day: 20.0 Years smoked: 8 Smoking pack-years: 8.00 Smoking status: Former smoker Tobacco type: cigarettes Smoking end date: 02/10/16 Alcohol intake: never Substance use: current Substance use type: marijuana Other substance usage details: EDIBLES FOR MIGRAINES Living arrangements: with family Additional living arrangements comments: Resides in [place] with her and 3 children. Occupation/Education: occupation Additional occupation/education comments: Works in [employer] at [employer]. Gender identity (if verbalized by the patient): Female Spiritual care concerns: No Anes - Eval Final PreProcedure Day of Procedure 03/21/22 10:03 Patient weight: super morbidly obese Heart: regular rate and rhythm Lungs: decreased breath sounds Airway: Mallampati scale class II Neurological: alert and oriented Last oral intake: >/= 8 hours ASA classification: III Emergent: no Anesthetic plan: proceed Anesthesia type and monitoring: general ETT and standard monitoring Results Review: All pre-operative results and documents have been reviewed as part of the pre-operative evaluation. Informed Consent: The patient's anesthetic plan and its attendant risks and benefits were discuss
--- NOTE | 2022-03-21 11:19 | WPDHPUPDATE1 ---
History and Physical Update Update Date/Time: 03/21/22 11:19 History and Physical has been reviewed, including an updated exam of the patient. There are NO changes in the patient's condition. Risks, benefits, and alternatives have been discussed and questions answered. Patient agrees to proceed with procedure.
[2022-03-21] MEDS: ceFAZolin 3 GM/D5W 100 ML 100 ML IVPB (11:28)
[2022-03-21] MEDS: BUPIVACAINE/EPINEPHRINE 0.5% 30 ML VIAL 20 ML INFILTRATE (12:09)
[2022-03-21] MEDS: LIDOCAINE HCL 1% PF 30 ML VIAL 20 ML INFILTRATE (12:14)
[2022-03-21] MEDS: KETOROLAC 30 MG/ML VIAL (*BKC) 15 MG IV PUSH (13:04)
--- NOTE | 2022-03-21 13:34 | W.PM.PROC2 ---
Procedure Note - Detailed Date of Procedure 03/21/22 Pre-op Diagnosis chronic cholecystitis secondary to gallstones Post-op Diagnosis Other (Biliary colic secondary to gallstones) Procedure Performed Robotic assisted laparoscopic cholecystectomy Surgeon Juan C Tripathi MD Anesthesia General Indications Patient is a 36-year-old female who presented with a recent history of emergency room visit for the right upper quadrant abdominal pain. That time a 2cm gallstone was noted to be near the neck of the gallbladder. She has been having symptoms of pain and nausea with eating fatty foods. She presents now for elective robotic assisted laparoscopic cholecystectomy. Findings Gallbladder was distended but the wall was not thickened. There was no acute inflammatory changes of the gallbladder wall. There really was not any chronic inflammatory changes either. Large gallstone was noted within the gallbladder. Description of Procedure After informed consent was obtained patient was brought to the operating room where she was placed in supine position and then general endotracheal anesthesia was administered. A time-out was then performed correctly identifying the patient as well as procedure to be performed and verifying she was given 3g of Ancef for perioperative IV antibiotics. The abdomen was then prepped and draped in usual sterile fashion. I 1st entered the abdomen the left upper quadrant utilizing a 5mm Optiview port. Once inside the abdomen insufflated to adequate pneumoperitoneum of 15mmHg of CO2. There were no adhesions to the anterior abdominal wall so I then placed 4 separate 8mm robotic trocar port across the mid abdominal wall. The de Marlo robot was then brought to the patient's bedside and the robotic arms were attached the robotic ports. The 8mm robotic laparoscopic was then advanced into the abdomen and then the robotic instruments were advanced under direct visualization. I then scrubbed out the procedure inside down at the robotic console to perform the dissection robotically. A ProGrasp robotic instrument was used to hold the gallbladder at the dome and it was elevated over the right half of liver towards the right shoulder. A 2nd robotic grasper was used to hold the gallbladder at the infundibulum and then utilizing the robotic hook cautery I dissected the visceral peritoneum and fatty tissue off of the infundibular gallbladder until I identified the cystic duct. I verified that the structure that I thought was the cystic duct was a biliary structure with the use of ICG fluorescence. I was able see the cystic duct and common bile duct junction clearly with the ICG. I then dissected out the cystic duct circumferentially. I also identified the cystic artery and dissected this out circumferentially as well. The posterior wall the gallbladder at the infundibulum was dissected free of the liver until the critical view was obtained. At this point I then placed 2 robotic clips proximally on the cystic duct and 1 distally high on infundibulum of the gallbladder. The cystic duct was then divided with the robotic hook cautery on pure cut. The cystic artery was clipped and divided in a similar fashion. The gallbladder was resected off the liver utilizing robotic hook cautery without spilling any gallbladder stones or bile. Once the gallbladder was completely freed from the liver I then placed a 10mm trocar port left upper quadrant and placed a catch bag into the abdomen. The gallbladder is placed into the Endo-Catch bag and brought out through the left upper quadrant trocar port site. It was passed off table sent to pathology for examination. I then had the instruments removed from the abdomen after visualizing the gallbladder bed which was hemostatic. There was no evidence of any bile leak. The [employer] robot was then undocked from the patient's bedside and I scrubbed back into the procedure and and closed the 10mm left upper quadrant trocar fascial de
[2022-03-21] MEDS: ONDANSETRON INJ 4 MG/2 ML VIAL IV PUSH (13:45)
[2022-03-21] MEDS: fentaNYL CITRATE INJ (*CRX) 100 MCG/2 ML VIAL 25 MCG IV PUSH ×6 (13:45→16:33)
[2022-03-21] MEDS: diphenhydrAMINE HCl INJ 50 MG/ML VIAL 25 MG IV PUSH (14:25)
--- NOTE | 2022-03-21 14:52 | SUR.PHASEI ---
1452: Dr. Perkins notified of patient Diastolic BP >100. no new orders. Notified of patient pain. New orders received.
--- NOTE | 2022-03-21 15:17 | SUR.PHASEI ---
1516: Dr. Tripathi notified that patient states she can tolerate Tramadol po. Dr. Tripathi to write script before dc.
[2022-03-21] MEDS: traMADol HCL (*CRX) 25 MG TABLET PO (15:57)
--- NOTE | 2022-03-21 16:56 | SUR.PHASEII ---
DR. LUTZ NOTIFIED RE: SLIGHT SWELLING ABOVE UPPER LEFT ABDOMINAL INCISION. SWELLING SOFT/NOT DISCOLORED. NO BLEEDING. PT C/O'S SEVERE ABDOMINAL PAIN MOSTLY IN UPPER LEFT AREA; ABLE TO WALK SLOWLY TO RESTROOM AND BACK TO ROOM.
== END 2022-03-21 17:14 | disposition home or self-care (01) ==
PROVIDERS: Visit Provider Surgery
PROC: 0FT44ZZ Resection of Gallbladder, Percutaneous Endoscopic Approach (ICD-10-PCS; CPT 47562; principal; 2022-03-21 11:00)
DX: K80.10 Calculus of gallbladder with chronic cholecystitis without obstruction (principal); I48.0 Paroxysmal atrial fibrillation; E78.5 Hyperlipidemia, unspecified; G47.33 Obstructive sleep apnea (adult) (pediatric); E55.9 Vitamin D deficiency, unspecified; I47.1 Supraventricular tachycardia; F41.9 Anxiety disorder, unspecified; Z79.82 Long term (current) use of aspirin; Z87.891 Personal history of nicotine dependence; F12.90 Cannabis use, unspecified, uncomplicated
CPT/HCPCS: 47562; 88304; A9270; J0330; J0690; J1100; J1170; J1200; J1885; J2250; J2405; J2704; J2710; J3010; J7120

== ENCOUNTER 2022-07-03 07:31 | Outpatient (CLI) | payer OTHER, SELFPAY ==
[2022-07-03 08:33] LABS: Cholesterol 153 mg/dL (0-200); HDL Direct 26 mg/dL; Triglycerides 253 mg/dL (<150)
[2022-07-03 08:44] LABS: LDL Cholesterol Direct 91 mg/dL
== END 2022-07-03 07:32 | disposition home or self-care (01) ==
PROVIDERS: Visit Provider Internal Medicine Cardiovascular Disease
DX: E78.5 Hyperlipidemia, unspecified (principal)
CPT/HCPCS: 36415; 80061

== ENCOUNTER 2022-09-12 11:03 | Emergency (ER) | payer OTHER, SELFPAY ==
[2022-09-12 11:13] VITALS: BP 151/83; PULSE 85; RESP 16; TEMP 36.7; O2SAT 98
--- NOTE | 2022-09-15 08:12 | ED.EYEPROB ---
HPI - Eye Problem General Chief complaint: Eye Problems Stated complaint: EYE REDNESS/SWELLING Time Seen by Provider: 09/12/22 11:15 Source: patient Mode of arrival: ambulatory Limitations: no limitations History of Present Illness HPI Narrative: 37 yo F presents with redness, warmth and swelling to R eyelid starting yesterday. Tender on palpation. No other symptoms. Denies vision change other than eyelid swollen and hanging down into visual field. all systems reviewed and negative except as noted above. Related Data Home Medications Medication Instructions Recorded Confirmed omeprazole 40 mg capsule,delayed 40 mg PO DAILY 08/08/21 09/12/22 release triamterene 75 1 tablet PO DAILY 08/08/21 09/12/22 mg-hydrochlorothiazide 50 mg tablet cholecalciferol (vitamin D3) 50 50 mcg PO DAILY 02/25/22 09/12/22 mcg (2,000 unit) capsule oxybutynin chloride 10 mg 10 mg PO DAILY 02/25/22 09/12/22 tablet,extended release 24 hr Allergies Allergy/AdvReac Type Severity Reaction Status Date / Time hydrocodone Allergy Severe Swelling Verified 09/12/22 11:09 of Lip/Tongue/Throat Review of Systems Review of Systems: CONSTITUTIONAL: Denies fever, chills, or sweats. EYES: Denies visual changes, redness, or discharge. ENT: Denies rhinorrhea, congestion, sore throat, or otalgia. CARDIOVASCULAR: Denies chest pain, palpitations, or edema. RESPIRATORY: Denies cough or dyspnea. GASTROINTESTINAL: Denies abdominal pain, nausea, vomiting, or diarrhea. GENITOURINARY: Denies dysuria or hematuria. SKIN: Denies rash or itching. Reports redness and swelling to right upper eyelid. MUSCULOSKELETAL: Denies back pain, joint pain, or myalgia. NEUROLOGIC: Denies headache, numbness, or weakness. PSYCHIATRIC: Denies anxiety or depression. All other systems reviewed are negative, except as documented in HPI. [facility] Past Medical History Medical History (Updated 09/13/22 @ 00:02 by Alea George) Anxiety Dyslipidemia Endometriosis Migraine headache Obstructive sleep apnea on CPAP Paroxysmal atrial fibrillation Supraventricular tachycardia Vitamin D deficiency Surgical History Surgical History (Updated 04/01/22 @ 09:59 by Jennifer Menezes) History of dilation and curettage History of hysterectomy laparoscopic, with unilateral salpingo-oophorectomy. History of laparoscopy With destruction of endometriosis. History of tubal ligation S/P laparoscopic cholecystectomy robotic assisted lap bonnie 03/21 Family History Family History Father Diabetes mellitus Family history of congestive heart failure Hypertension Mother Atrial fibrillation Hypertension Sibling Diabetes mellitus Hypertension Social History Social History Social History: Surrogate decision maker: Mariam Chavarria, . Code status: Full code. Smoking packs per day: 1 Smoking cigarettes per day: 20.0 Years smoked: 8 Smoking pack-years: 8.00 Smoking status: Former smoker Tobacco type: cigarettes Smoking end date: 02/10/16 Alcohol intake: never Substance use: current Substance use type: marijuana Other substance usage details: EDIBLES [employer] MIGRAINES Living arrangements: with family Additional living arrangements comments: Resides in [place] with her and 3 children. 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 Gender identity (if verbalized by the patient): Female Spiritual care concerns: No Comments At time of signature, agree with nursing past medical, surgical, social and family history. There is no relevant family history pertinent to the presenting complaint. Exam Narrative: GENERAL: This is a well-nourished, well-developed patient, in no apparent distress. HEAD: normocephalic, atraumatic. EYES: PERRL.
== END 2022-09-12 11:23 | disposition home or self-care (01) ==
PROVIDERS: Emergency Provider Nurse Practitioner Family
DX: H00.021 Hordeolum internum right upper eyelid (principal); Z87.891 Personal history of nicotine dependence; E78.5 Hyperlipidemia, unspecified; N80.9 Endometriosis, unspecified; G47.33 Obstructive sleep apnea (adult) (pediatric); I48.0 Paroxysmal atrial fibrillation; E55.9 Vitamin D deficiency, unspecified
CPT/HCPCS: 99213; G0463

== ENCOUNTER 2023-10-18 09:21 | Emergency (ER) | payer OTHER, SELFPAY ==
--- NOTE | 2023-10-18 09:25 | ED.EAR ---
HPI - Ear Problem General Chief complaint: Ear Stated complaint: nausea/ear pain Time Seen by Provider: 10/18/23 09:40 Source: patient, RN notes reviewed and old records reviewed Mode of arrival: ambulatory Limitations: no limitations History of Present Illness HPI Narrative: 38-year-old female who presents to [facility] with complaints of nausea and bilateral ear discomfort and pressure, stuffy nose. Patient reports that she had some headache denies any dizziness, is on blood pressure medications. Patient reports that she has taken Ibuprofen for her discomfort. Patient denies any body aches, fevers, chills,or sweat, states no sore throat. MD Complaint: other (ear pressure) Location: bilateral Severity: moderate Exacerbating factors: nothing Discharge from ear: Reports no Treatment prior to arrival: other (Ibuprofen) Related Data Home Medications Medication Instructions Recorded Confirmed omeprazole 40 mg capsule,delayed 40 mg PO DAILY 08/08/21 09/12/22 release triamterene 75 1 tablet PO DAILY 08/08/21 09/12/22 mg-hydrochlorothiazide 50 mg tablet cholecalciferol (vitamin D3) 50 50 mcg PO DAILY 02/25/22 09/12/22 mcg (2,000 unit) capsule oxybutynin chloride 10 mg 10 mg PO DAILY 02/25/22 09/12/22 tablet,extended release 24 hr dulaglutide 0.75 mg/0.5 mL mg subcut 10/18/23 subcutaneous pen injector (Trulicity) Allergies Allergy/AdvReac Type Severity Reaction Status Date / Time hydrocodone Allergy Severe Swelling Verified 09/12/22 11:09 of Lip/Tongue/Throat Review of Systems Review of Systems: CONSTITUTIONAL: Denies malaise, chills, sweats, or fever. EYES: Denies visual changes, redness, or discharge. ENT: Reports rhinorrhea, congestion, sinus pain, otalgia and no sore throat. CARDIOVASCULAR: Denies chest pain, palpitations, or edema. RESPIRATORY: Reports no acute cough.? Denies dyspnea. GASTROINTESTINAL: Denies abdominal pain,positive for nausea, no vomiting,no diarrhea SKIN: Denies rash or itching. MUSCULOSKELETAL: Denies myalgia. NEUROLOGIC: Some headache. All systems reviewed & are unremarkable except as noted in HPI and below PMFSH Past Medical History Medical History (Updated 10/18/23 @ 10:01 by Nan Mack NP) Anxiety Dyslipidemia Endometriosis Migraine headache Obstructive sleep apnea on CPAP Paroxysmal atrial fibrillation Supraventricular tachycardia Vitamin D deficiency Surgical History Surgical History (Updated 04/01/22 @ 09:59 by Jennifer Menezes) History of dilation and curettage History of hysterectomy laparoscopic, with unilateral salpingo-oophorectomy. History of laparoscopy With destruction of endometriosis. History of tubal ligation S/P laparoscopic cholecystectomy robotic assisted lap bonnie 03/21 Family History Family History Father Diabetes mellitus Family history of congestive heart failure Hypertension Mother Atrial fibrillation Hypertension Sibling Diabetes mellitus Hypertension Social History Social History (Updated 10/18/23 @ 19:04 by Nan Mack NP) Social History: Surrogate decision maker: Mariam Chavarria, . Code status: Full code. Smoking packs per day: 1 Smoking cigarettes per day: 20.0 Years smoked: 8 Smoking pack-years: 8.00 Smoking status: Former smoker Tobacco type: cigarettes Smoking end date: 02/10/16 Alcohol intake: never Substance use: former Substance use type: marijuana Other substance usage details: EDIBLES FOR MIGRAINES Living arrangements: with family Additional living arrangements comments: Resides in [place] with her and 3 children. Occupation/Education: occupation Additional occupation/education comments: Works in housekeeping at [employer]. Gender identity (if verbalized by the patient): Female Spiritual care concerns: No Comments At time of signature
[2023-10-18 09:26] VITALS: BP 106/56; PULSE 60; RESP 20; TEMP 36.8; O2SAT 98
== END 2023-10-18 10:11 | disposition home or self-care (01) ==
PROVIDERS: Emergency Provider Registered Nurse; PCP Physician Assistant
DX: H92.03 Otalgia, bilateral (principal); R11.0 Nausea; J06.9 Acute upper respiratory infection, unspecified; E78.5 Hyperlipidemia, unspecified; N80.9 Endometriosis, unspecified; G47.33 Obstructive sleep apnea (adult) (pediatric); I48.0 Paroxysmal atrial fibrillation; E55.9 Vitamin D deficiency, unspecified; Z87.891 Personal history of nicotine dependence
CPT/HCPCS: 99213; G0463

== ENCOUNTER 2023-11-26 06:22 | Emergency (ER) | payer OTHER, SELFPAY ==
--- NOTE | ~2023-11-26 | CT_ITS ---
EXAMINATION: CT abdomen pelvis w con DATE: 11/26/2023 07:54 INDICATION: Bloating with lower abdominal pain and back pain TECHNIQUE: Computed tomography (CT) of the abdomen and pelvis was performed with 100 mL Omnipaque-350 intravenous contrast. Automated exposure control and iterative reconstruction technique were employe d. The dose-length product was 1433.32 mGy-cm. COMPARISON: None FINDINGS: Lung bases are clear. Heart size is normal. No pericardial or pleural effusion. Subcentimeter hepatic cyst and small region of focal hepatic steatosis at the ligamentum teres. Status post cholecystectom y. Spleen, pancreas, bilateral adrenal glands and kidneys are normal. Small to moderate amount of col onic stool. No bowel obstruction. Normal appendix. The uterus is not identified and has likely been s urgically resected. A couple left adnexal cyst/follicles measuring up to 2.0 cm. Bladder and right ad nexa are unremarkable. The uterus is not identified and has likely been surgically resected. No free intraperitoneal gas or fluid. No pathologically enlarged abdominal or pelvic lymphadenopathy. Small f at-containing umbilical hernia. Mild lumbar levocurvature with mild spondylosis. IMPRESSION: 1. No acute intra-abdominal/pelvic process. Reviewed, dictated and finalized at location A.
[2023-11-26 06:38] VITALS: BP 156/77; PULSE 72; RESP 16; TEMP 36.7; O2SAT 98
[2023-11-26 06:51] LABS: BEDSIDEPREGUCG Negative (Negative)
[2023-11-26 06:58] LABS: Basophils Percent Auto 0.5 % (0.2-1.2); Eosinophils Absolute Auto 0.2 K/mm3 (0-0.3); Eosinophils Percent Auto 1.7 % (0-4.4); Hematocrit 38.6 % (37.0-47.0); Hemoglobin 12.9 g/dL (12.0-15.0); Immature Granulocyte Absolute 0.03 K/mm3 (0.00-0.031); Immature Granulocyte Percent A 0.3 % (0-0.5); Lymphocytes Absolute Auto 2.18 K/mm3 (0.9-3.2); Lymphocytes Percent Auto 25.3 % (18.3-44.2); Mean Corpuscular HGB Conc 33.4 g/dl (32-36); Mean Corpuscular Hemoglobin 29.5 pg (26-34); Mean Corpuscular Volume 88.1 fl (80-100); Mean Platelet Volume 9.6 fl (7.4-10.4); Monocytes Absolute Auto 0.7 K/mm3 (0.1-0.6); Monocytes Percent Auto 8.1 % (2.6-8.5); Neutrophils Absolute Auto 5.5 K/mm3 (1.3-6.7); Neutrophils Percent Auto 64.1 % (45.5-73.1); Platelet Count Result 331 k/mm3 (150-375); Red Blood Count 4.38 M/mm3 (4.2-5.4); Red Cell Distribution Width 13.2 % (11.5-14.5); White Blood Count 8.6 K/mm3 (4.5-10.0)
[2023-11-26 07:04] LABS: Add Urine Microscopic? YES; Appearance Urine Cloudy (Clear); Bacteria Urine Rare /hpf; Bilirubin Urine Negative (Negative); Blood Urine Trace (Negative); Color Urine Yellow (Yellow); Glucose Urine UA Negative (Negative); Ketones Urine Negative (Negative); Leukocyte Esterase Ur Negative LEU/UL (Negative); Nitrate Urine Negative (Negative); Non Pathogenic Casts 0-2; Protein Urine 2+ mg/dL (Negative); RBC Urine 0-2 /hpf (0-2); Specific Grav Ur 1.021 (1.001-1.035); Squamous Epithelial Cell Urine Moderate /hpf (Few); Urobilinogen Urine 0.2 mg/dL (<2.0); WBC Urine 0-5 /hpf (0-3); pH Urine 5.5 (5.0-9.0)
[2023-11-26 07:08] LABS: Alanine Aminotransferase 21 U/L (6-35); Albumin Level 4.7 g/dL (3.5-5.1); Alkaline Phosphatase 76 U/L (38-126); Anion Gap 10 mmol/L (4-12); Aspartate Amino Transferase 25 U/L (14-36); Bilirubin,Total 0.4 mg/dL (0.2-1.3); Blood Urea Nitrogen 21 mg/dL (7-17); Calcium 9.6 mg/dL (8.4-10.2); Carbon Dioxide 26 mmol/L (22-30); Chloride 103 mmol/L (98-107); Estimated CRCL calculation 97 ml/min; Estimated Glomerular Filt Rate > 60; Glucose 118 mg/dL (65-110); Lipase 273 U/L (23-300); Potassium 4.2 mmol/L (3.4-5.0); Sodium 139 mmol/L (137-145)
--- NOTE | 2023-11-26 07:28 | ED.ABDPAIN ---
HPI - Abdominal Pain General Chief Complaint: Abdominal Pain Stated Complaint: Back and abd pain Time Seen by Provider: 11/26/23 07:01 Source: patient Mode of arrival: ambulatory Limitations: no limitations History of Present Illness HPI narrative: 38-year-old female presents with low abdominal pain as well as back pain which she states is on the right more than left. This started approximately 1 day ago. She has also noticed increase abdominal bloating particularly in the upper quadrants. She has a history of a cholecystectomy approximately 2 years ago. She denies any dysuria or hematuria. She does have some urinary urgency and frequency but states this is chronic and is at its baseline. She is feeling nauseated but denies any vomiting or diarrhea. She states she has a history of frequent urinary tract infections. And notes that she has had pain similarly previous in the setting of this although states this feels somewhat different. No palliating or provoking factors. She describes it as cramping, 5 out 10 severity. No prior gastroenterology appointments that she knows of. She denies any previous colonoscopy or EGD. She has not yet taken anything / medications prior to arrival Related Data Home Medications Medication Instructions Recorded Confirmed omeprazole 40 mg capsule,delayed 40 mg PO DAILY 08/08/21 09/12/22 release triamterene 75 1 tablet PO DAILY 08/08/21 09/12/22 mg-hydrochlorothiazide 50 mg tablet cholecalciferol (vitamin D3) 50 50 mcg PO DAILY 02/25/22 09/12/22 mcg (2,000 unit) capsule oxybutynin chloride 10 mg 10 mg PO DAILY 02/25/22 09/12/22 tablet,extended release 24 hr dulaglutide 0.75 mg/0.5 mL mg subcut 10/18/23 [facility] Allergies Allergy/AdvReac Type Severity Reaction Status Date / Time hydrocodone Allergy Severe Swelling Verified 11/26/23 08:01 of Lip/Tongue/Throat PMFSH Past Medical History Medical History (Updated 11/26/23 @ 09:15 by Justine Coronado MD) Anxiety Dyslipidemia Endometriosis Migraine headache Obstructive sleep apnea on CPAP Paroxysmal atrial fibrillation Supraventricular tachycardia Vitamin D deficiency Surgical History Surgical History History of dilation and curettage History of hysterectomy laparoscopic, with unilateral salpingo-oophorectomy. History of laparoscopy With destruction of endometriosis. History of tubal ligation S/P laparoscopic cholecystectomy robotic assisted lap bonnie 03/21 Family History Family History Father Diabetes mellitus Family history of congestive heart failure Hypertension Mother Atrial fibrillation Hypertension Sibling Diabetes mellitus Hypertension Social History Social History (Updated 10/18/23 @ 19:04 by Nan Mack NP) Social History: Surrogate decision maker: Mariam Chavarria, . Code status: Full code. Smoking packs per day: 1 Smoking cigarettes per day: 20.0 Years smoked: 8 Smoking pack-years: 8.00 Smoking status: Former smoker Tobacco type: cigarettes Smoking end date: 02/10/16 Alcohol intake: never Substance use: former Substance use type: marijuana Other substance usage details: EDIBLES FOR MIGRAINES Living arrangements: with family Additional living arrangements comments: Resides in [place] with her and 3 children. 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 Gender identity (if verbalized by the patient): Female Spiritual care concerns: No Exam Narrative: GENERAL: Well-appearing, well-nourished, and in no acute distress. HEAD: Normocephalic, atraumatic. EYES: Non injected, non icteric ENT: Nares clear, no rhinorrhea or epistaxis. NECK: Supple. CHEST: Speaking in full sentences. No respirato
--- NOTE | 2023-11-26 07:49 | PC.NURSE ---
pharmacy called for tramadol order. states they will bring it to the ED.
[2023-11-26] MEDS: ONDANSETRON INJ 4 MG/2 ML VIAL IV PUSH (08:01)
[2023-11-26] MEDS: traMADol/ACETAMINOPHEN (*CRX) (ULTRACET) 37.5/325 MG TABLET 1 TAB PO (08:12)
[2023-11-26] MEDS: KETOROLAC 15 MG/ML VIAL (*BKC) IV PUSH (08:39)
[2023-11-26 08:41] VITALS: BP 138/64; PULSE 62; RESP 16; O2SAT 98
== END 2023-11-26 09:25 | disposition home or self-care (01) ==
PROVIDERS: Emergency Medicine; Emergency Provider Student in an Organized Health Care Education/Training Program; PCP Physician Assistant
DX: R10.30 Lower abdominal pain, unspecified (principal); M54.9 Dorsalgia, unspecified; R79.89 Other specified abnormal findings of blood chemistry; I48.0 Paroxysmal atrial fibrillation; E78.5 Hyperlipidemia, unspecified; G47.33 Obstructive sleep apnea (adult) (pediatric); R14.0 Abdominal distension (gaseous); E55.9 Vitamin D deficiency, unspecified; Z87.891 Personal history of nicotine dependence; Z90.49 Acquired absence of other specified parts of digestive tract; Z90.710 Acquired absence of both cervix and uterus; Z90.79 Acquired absence of other genital organ(s); Z90.721 Acquired absence of ovaries, unilateral
CPT/HCPCS: 36415; 74177; 80053; 81001; 81025; 83690; 85025; 96374; 96375; 99284; A9270; J1885; J2405; Q9967

== ENCOUNTER 2024-06-02 14:58 | Emergency (ER) | payer OTHER, SELFPAY ==
[2024-06-02 15:04] VITALS: BP 134/86; PULSE 74; RESP 18; TEMP 36.7; O2SAT 96
--- NOTE | 2024-06-02 15:24 | ED_ITS ---
HPI - Skin/Abscess/Foreign Bdy General Chief complaint: Skin/Abscess/Foreign Body Stated complaint: stung or bit by something Time Seen by Provider: 06/02/24 15:20 Source: patient, RN notes reviewed and old records reviewed Mode of arrival: ambulatory Limitations: no limitations History of Present Illness HPI narrative: 39 year old female who presents to [facility] care with complaints of 1 hour ago she was sitting on patio area and she had flying insect bite her in the vaginal area. Patient reports pain and swelling to area has not applied any OTC medication to area which is located in right pubis area where redness and swelling noted. Patient reports no noted fevers is concerned since she is diabetic. MD complaint: insect bite/sting Onset (ago): hour(s) (1 hour ago) Location: genitals (right pubis area) Severity scale (1-10): 5 Quality: aching Treatments prior to arrival: none Related Data Home Medications ?Medication ?Instructions ?Recorded ?Confirmed ?Last Taken ?Type triamterene 75 1 tablet PO DAILY 08/08/21 09/12/22 Unknown History mg-hydrochlorothiazide 50 mg tablet cholecalciferol (vitamin D3) 50 50 mcg PO DAILY 02/25/22 09/12/22 Unknown History mcg (2,000 unit) capsule dulaglutide 1.5 mg/0.5 mL mg subcut 06/02/24 Unknown History subcutaneous pen injector (Trulicity) famotidine 20 mg tablet mg 06/02/24 Unknown History lisinopril 20 mg tablet mg 06/02/24 Unknown History pantoprazole 40 mg tablet,delayed mg PO 06/02/24 Unknown History release Allergies Allergy/AdvReac Type Severity Reaction Status Date / Time hydrocodone Allergy Severe Swelling Verified 06/02/24 15:11 of Lip/Tongue/Throat Review of Systems Review of Systems: CONSTITUTIONAL: Denies fever, chills, or sweats. EYES: Denies visual changes, redness, or discharge. ENT: Denies rhinorrhea, congestion, sore throat, or otalgia. CARDIOVASCULAR: Denies chest pain, palpitations, or edema. RESPIRATORY: Denies cough or dyspnea. GASTROINTESTINAL: Denies abdominal pain, nausea, vomiting, or diarrhea. GENITOURINARY: Denies dysuria or hematuria. SKIN: Denies rash or itching.positive for redness and swelling area to the right pubis MUSCULOSKELETAL: Denies back pain, joint pain, or myalgia. NEUROLOGIC: Denies headache, numbness, or weakness. PSYCHIATRIC: Denies anxiety or depression. All systems reviewed & are unremarkable except as noted in HPI and below PMFSH Past Medical History Medical History (Updated 06/04/24 @ 08:07 by Nan Mack NP) Hypertension Paroxysmal atrial fibrillation Vitamin D deficiency Obstructive sleep apnea on CPAP Endometriosis Supraventricular tachycardia Migraine headache Dyslipidemia Anxiety Surgical History Surgical History S/P laparoscopic cholecystectomy robotic assisted lap bonnie 03/21 History of laparoscopy With destruction of endometriosis. History of tubal ligation History of dilation and curettage History of hysterectomy laparoscopic, with unilateral salpingo-oophorectomy. Family History Family History Father Diabetes mellitus Family history of congestive heart failure Hypertension Mother Atrial fibrillation Hypertension Sibling Diabetes mellitus Hypertension Social History Social History Social History: Surrogate decision maker: Mariam Chavarria, . Code status: Full code. Smoking packs per day: 1 Smoking cigarettes per day: 20.0 Years smoked: 8 Smoking pack-years: 8.00 Smoking status: Former smoker Tobacco type: cigarettes Smoking end date: 02/10/16 Alcohol intake: never Substance use: former Substance use type: marijuana Other substance usage details: EDIBLES FOR MIGRAINES Living arrangements: with family Additional living arrangements comments: Resides in [place] with her and 3 children. 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 Gender identity (if verbalized by the patient): Female Spiritual care concerns: No Comments At time of signature, agree with nursing past medical, surgical, social and family history. There is no relevant family history pertinent to the presenting complaint Exam Narrative: GENERAL: Well-appearing, well-nourished, and in no acute distress. HEAD: Normocephalic, atraumatic. EYES: PERRLA and EOMI. ENT: Nares clear, no rhinorrhea or epistaxis. Mucous membranes moist. NECK: Supple.no lymphadenopathy CHEST: Clear to auscultation. No respiratory distress.SAO2 96% on room air HEART: Regular rate and rhythm. No murmur heard. Normal peripheral pulses. ABDOMEN: Soft, nontender, nondistended, normal active bowel sounds. EXTREMITIES: Normal range of motion. No edema. SKIN: Warm, dry, no rash.2cm X3cm area to the right pubis that is red and swollen with tenderness, no drainage noted, no vesicle or pustule minimal warmth to area NEURO: No focal deficits. Alert and oriented x3. Course Course Emergency Course: Patient is aware of diagnosis, understands and agrees to treatment plan.? Anticipatory guidance given.? Patient agrees to follow-up as directed and is aware of reasons to seek care at the emergency department. Portions of this record may have been created with voice recognition software Level of Care: Express Care Visit Vital Signs Vital signs: Vital Signs Temperature 36.7 C 06/02/24 15:04 Pulse Rate 74 06/02/24 15:04 Respiratory Rate 18 06/02/24 15:04 Blood Pressure 134/86 06/02/24 15:04 Pulse Oximetry 96 06/02/24 15:04 Oxygen Delivery Room Air 06/02/24 15:04 Temperature 36.7 C 06/02/24 15:04 Pulse Rate 74 06/02/24 15:04 Respiratory Rate 18 06/02/24 15:04 Blood Pressure 134/86 06/02/24 15:04 Pulse Oximetry 96 06/02/24 15:04 Oxygen Delivery Room Air 06/02/24 15:04 Reviewed MDM - Skin/Abscess/Foreign Bdy Differential Diagnosis Differential diagnosis: Likely abscess of skin or subcutaneous tissue, c ellulitis, insect bites and contact dermatitis Medical Records Attestation: I reviewed the patient's medical records. Critical Care Time Critical Care Time Critical Care Time: No Discharge Plan Discharge Clinical Impression: Insect bites Qualifiers: Encounter type: initial encounter Site of insect bite: pelvic region Qualified Code(s): S30.860A - Insect bite (nonvenomous) of lower back and pelvis, initial encounter; W57.XXXA - Bitten or stung by nonvenomous insect and other nonvenomous arthropods, initial encounter Cellulitis Qualifiers: Site of cellulitis: trunk Site of cellulitis of trunk: perineum Qualified Code(s): L03.315 - Cellulitis of perineum Patient Disposition: Home Condition: Stable Instructions: Antibiotic Form, Insect Bite or Sting (ED) Additional Instructions: Cleanse insect bite to right groin area twice a day Dial soap rinse and apply triamcinolone ointment twice daily watch for increasing infection--redness, swelling, drainage Tylenol or ibuprofen for any fever pain follow up with PCP in 7-10 days for a wound check recheck if develop fever, chills, increasing symptom Go to the ER if your symptoms become worse of if ANY new symptoms develop Antibiotic as prescribed If your symptoms persist, change or worsen significantly before you can contact your personal physician then please, without delay, go to the emergency department for further evaluation. Follow-up with PCP in 7-10 days or sooner if needed Follow up with PCP soon in regards to your blood pressure which is elevated above threshold for referral. Blood pressure above 120/80 may indicate pre- hypertension. 134/86 Patient Language: Sami Prescriptions: New triamcinolone acetonide 0.1 % ointment 1 applic topical BID Qty: 80 0RF Rx Instructions: apply to rash area 2 X a day never apply to face cephalexin 500 mg capsule 500 mg PO Q12H Qty: 20 0RF No Action lisinopril 20 mg tablet famotidine 20 mg tablet pantoprazole 40 mg tablet,delayed release (DR/EC) PO Trulicity 1.5 mg/0.5 mL pen injector SUBCUT triamterene-hydrochlorothiazid 75-50 mg tablet 1 tablet PO DAILY cholecalciferol (vitamin D3) 50 mcg (2,000 unit) capsule 50 mcg PO DAILY ibuprofen 600 mg tablet 600 mg PO TID PRN (Reason: pain) Qty: 20 0RF acetaminophen 500 mg capsule 1,000 mg PO Q6H PRN (Reason: pain) Qty: 20 0RF Fish Oil 100-160-1,000 mg capsule See Rx Instructions PO .COMPLEX Qty: 180 0RF Rx Instructions: 1,000 mg BID orally; sotalol 80 mg tablet See Rx Instructions .ROUTE .COMPLEX Qty: 60 5RF Dose Instruction: TAKE 1 TABLET BY MOUTH EVERY 12 HOURS Rx Instructions: TAKE 1 TABLET BY MOUTH EVERY 12 HOURS Follow-up/Referrals: Butch,Davis Mahmood [Primary Care Provider] - Time of Disposition: 15:42 Quality Carlo Coma Scale Eyes: Open Verbal: Oriented and Alert Motor: Follows Commands Austin Coma Total Score: 15
--- OUTSIDE RECORDS SUMMARY | 2024-06-02 16:12 | XMS_ITS | Referral Summary ---
Author Organization [facility] Address [address] [place] [address] Care Team Providers Care Real Estate Appraiser Supervisor Name Role Phone Dinah Ha MD Unavailable [phone] Gay Weeks NP Primary Care Provider [phone] Allergies Active Allergy Reactions Criticality Noted Date Comments Hydrocodone Swelling Medium 10/13/2018 rthroat tightens Medications triamterene-hydr oCHLOROthiazide (MAXZIDE,DYAZIDE ) 75-50 mg per tablet Take 1 tablet by mouth daily 02/19/2021 Active sotaloL (BETAPACE) 80 mg tablet 08/30/2020 Active omeprazole (PriLOSEC) 40 mg capsule Take 40 mg by mouth daily 10/18/2020 Active naproxen (NAPROSYN) 375 mg tablet 11/03/2021 Active fenofibrate (TRIGLIDE) 160 mg tablet 10/13/2020 Active aspirin 81 mg enteric coated tablet Take 81 mg by mouth daily Active oxybutynin XL (DITROPAN-XL) 10 mg 24 hr tablet Take 1 tablet (10 mg total) by mouth daily 60 tablet 5 01/24/2022 Active Active Problems No known active problems Social History Tobacco Use Types Packs/Day Years Used Date Smoking Tobacco: Never Smokeless Tobacco: Never Personal Safety Answer Date Recorded Getting School Help Needed Not on file 02/04 Comments No Sex and Gender Information Value Date Recorded Sex Assigned at Not on file Legal Sex Female 4:23 PM INTERVENTIONAL RADIOLOGY TECH Gender Identity Not on file Sexual Orientation Not on file Last Filed Vital Signs Vital Sign Reading Time Taken Comments Blood Pressure 154/88 01/24/2022 1:27 PM INTERVENTIONAL RADIOLOGY TECH Pulse 85 01/24/2022 1:27 PM INTERVENTIONAL RADIOLOGY TECH Temperature 36.9 C (98.4 F) 01/24/2022 1:27 PM INTERVENTIONAL RADIOLOGY TECH Respiratory Rate 20 10/13/2018 9:15 PM CDT Oxygen Saturation 98% 10/13/2018 9:15 PM CDT Inhaled Oxygen Concentration - - Weight 131.5 kg (290 lb) 01/24/2022 1:27 PM INTERVENTIONAL RADIOLOGY TECH Height 154.9 cm (5' 1 ) 01/24/2022 1:27 PM INTERVENTIONAL RADIOLOGY TECH Body Mass Index 54.8 01/24/2022 1:27 PM INTERVENTIONAL RADIOLOGY TECH Plan of Treatment Not on file [place] [address] [facility] MEDICAID Care Teams Real Estate Appraiser Supervisor Relationship Specialty Start Date End Date Gay Weeks NP [address] [place] [address] PCP - General Nurse Practitioner 01/21/22 Dinah Ha MD 10/13/18
--- OUTSIDE RECORDS SUMMARY | 2024-06-02 16:12 | XMS_ITS | CONTINUITY OF CARE DOCUMENT ---
Author Name tiffaniemaria elenaalexa Address Unknown Organization [facility] Address [address] [place] [address] Phone [phone] Care Team Providers Care Technical Services Analyst Name Role Phone Mando Ordonez MD Unavailable HARPAL MCDONALD MD Unavailable [phone] HARPAL MCDONALD MD Unavailable [phone] INSURANCE PROVIDERS Payer name Policy type / Coverage type [place] [employer] party ID DEN[place] MEDICAID (2) Medicaid [id number]
--- OUTSIDE RECORDS SUMMARY | 2024-06-02 16:12 | XMS_ITS | Clinical Summary ---
Author Organization [facility] Address [address] [place] [address] Care Team Providers Care Motor Coach Chauffeur Name Role Phone Dinah Ha MD Unavailable [phone] Gay Weeks NP Primary Care Provider [phone] Allergies Active Allergy Reactions Criticality Noted Date [...] Active Active Problems No known active problems Medical History Medical History Date Comments Obesity Atrial fibrillation (HCC) SVT (supraventricular tachycardia) Social History Tobacco Use Types Packs/Day Years Used Date Smoking Tobacco: Never Smokeless Tobacco: Never Personal Safety Answer Date Recorded Getting School Help Needed Not on file 02/04 Comments No Sex and Gender Information Value Date Recorded Sex Assigned at Not on file Legal Sex Female 4:23 PM OIL BURNER REPAIRER Gender Identity Not on file Sexual Orientation Not on file Obstetrics History Last Filed Vital Signs Vital Sign Reading Time Taken Comments Blood Pressure 154/88 01/24/2022 1:27 PM OIL BURNER REPAIRER Pulse 85 01/24/2022 1:27 PM OIL BURNER REPAIRER Temperature 36.9 C (98.4 F) 01/24/2022 1:27 PM OIL BURNER REPAIRER Respiratory Rate 20 10/13/2018 9:15 PM CDT Oxygen Saturation 98% 10/13/2018 9:15 PM CDT Inhaled Oxygen Concentration - - Weight 131.5 kg (290 lb) 01/24/2022 1:27 PM OIL BURNER REPAIRER Height 154.9 cm (5' 1 ) 01/24/2022 1:27 PM OIL BURNER REPAIRER Body Mass Index 54.8 01/24/2022 1:27 PM OIL BURNER REPAIRER Plan of Treatment Health Maintenance Due Date Last Done Comments Cervical Cancer Screening 1985 Depression Screening 1985 Hepatitis C Screening 1985 DTaP/Tdap/Td Vaccine (1 - Tdap) 1996 Varicella Vaccines (1 of 2 - 13+ 2-dose series) 1998 Hepatitis B Screening 04/13/2003 Regular Well Visit/Exam 18-64 04/13/2003 Covid-19 Vaccine (3 - 2023-2 5 season) 2023 02/06/2021, 01/09/2021 Influenza Vaccine (#1) 2023 12/11/2016 HPV Vaccines Aged Out No longer eligi ble based on patient's age to complete this topic Pneumococcal vaccine <65 Aged Out No longer eligible based on patient's age to complete this topic Insurance [place] [address] [facility] [place] [address] MEDICAID Care Teams Motor Coach Chauffeur Relationship Specialty Start Date End Date Gay Weeks NP [address] [place] [address] PCP - General Nurse Practitioner 01/21/22 Dinah Ha MD 10/13/18
--- OUTSIDE RECORDS SUMMARY | 2024-06-02 16:13 | XMS_ITS | CONTINUITY OF CARE DOCUMENT ---
Author Name tiffaniemaria elenaalexa Address Unknown Organization [facility] Address [address] [place] [address] Phone [phone] Care Team Providers Care Supply Specialist Name Role Phone Mando Ordonez MD Unavailable [phone] HARPAL MCDONALD MD Unavailable [phone] HARPAL MCDONALD MD Unavailable INSURANCE PROVIDERS Payer name Policy type / Coverage type [place] [employer] ID DENIS MEDICAID (2) Medicaid [id number]
== END 2024-06-02 15:44 | disposition home or self-care (01) ==
PROVIDERS: Emergency Provider Registered Nurse; PCP Physician Assistant
DX: L03.315 Cellulitis of perineum (principal); E11.9 Type 2 diabetes mellitus without complications; I48.0 Paroxysmal atrial fibrillation; I10 Essential (primary) hypertension; E78.5 Hyperlipidemia, unspecified; Z87.891 Personal history of nicotine dependence; Z79.899 Other long term (current) drug therapy; W57.XXXA Bitten or stung by nonvenomous insect and other nonvenomous arthropods, initial encounter
CPT/HCPCS: 99213; G0463

== ENCOUNTER 2024-11-30 10:54 | Emergency (ER) | payer OTHER, SELFPAY ==
--- NOTE | 2024-11-30 10:56 | ED_ITS ---
HPI - URI/Sore Throat General Chief Complaint: Upper Respiratory Infection Stated Complaint: covid exposure Time Seen by Provider: 11/30/24 10:55 Source: patient Mode of arrival: ambulatory Limitations: no limitations History of Present Illness HPI Narrative: Tracy is a 39-year-old female patient presenting to the clinic today with complaints of sore throat, nasal congestion, sneezing, cough, and fatigue times 2-3 days. 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 Denies any fevers. Does report some chills and body aches. Has not taken any medications to treat her symptoms. Related Data Home Medications ?Medication ?Instructions ?Recorded ?Confirmed ?Last Taken ?Type triamterene 75 1 tablet PO DAILY 08/08/21 0 09/12/22 Unknown History mg-hydrochlorothiazide 50 mg tablet cholecalciferol (vitamin D3) 50 50 mcg PO DAILY 09/12/22 Unknown History mcg (2,000 unit) capsule dulaglutide 1.5 mg/0.5 mL mg subcut 06/02/24 Unknown History subcutaneous pen injector (Trulicity) famotidine 20 mg tablet mg 06/02/24 Unknown History lisinopril 20 mg tablet mg 06/02/24 Unknown History pantoprazole 40 mg tablet,delayed mg PO 06/02/24 Unkn own History release Allergies Allergy/AdvReac Type Severity Reaction Status Date / Time hydrocodone Allergy Severe Swelling Verified 11/30/24 11:04 of Lip/Tongue/Throat Review of Systems Review of Systems: Pertinent positives per HPI. Patient denies any fever, rash, headache, visual changes, dizziness, shortness of breath, chest pain, palpitations, nausea, vomiting, diarrhea, constipation, abdominal pain, or any urinary issues. [facility] Past Medical History Medical History (Updated 11/30/24 @ 11:28 by Girish Rutherford APRN) Hypertension Paroxysmal atrial fibrillation Vitamin D deficiency Obstructive sleep apnea on CPAP Endometriosis Supraventricular tachycardia Migraine headache Dyslipidemia Anxiety Surgical History Surgical History S/P laparoscopic cholecystectomy robotic assisted lap bonnie 03/21 History of laparoscopy With destruction of endometriosis. History of tubal ligation History of dilation and curettage History of hysterectomy laparoscopic, with unilateral salpingo-oophorectomy. Family History Family History Father Diabetes mellitus Family history of congestive heart failure Hypertension Mother Atrial fibrillation Hypertension Sibling Diabetes mellitus Hypertension Social History Social History Social History: Surrogate decision maker: Mariam Chavarria, . Code status: Full code. Smoking packs per day: 1 Smoking cigarettes per day: 20.0 Years smoked: 8 Smoking pack-years: 8.00 Smoking status: Former smoker Tobacco type: cigarettes Smoking end date: 02/10/16 Alcohol intake: never Substance use: former Substance use type: marijuana Other substance usage details: [employer] Living arrangements: with family Additional living arrangements comments: Resides in [place] with her and 3 children. Occupation/Education: occupation Additional occupation/education comments: Works in [employer] at [employer]. Gender identity (if verbalized by the patient): Female Spiritual care concerns: No Comments At the time of my signature, I reviewed and agree with the nursing past medical, surgical, social, and family history. There is no relevant family history pertinent to the patient complaint. Exam Narrative: General: Well-developed, morbidly obese, in no apparent distress Head: Normocephalic, atraumatic Eyes: Pupils equally round and reactive to light bilaterally, EOM intact, sclera and conjunctive clear, no discharge, lids normal Ears: TMs intact and congested, ear canals clear, no drainage, grossly hearing normal. Nose: Nares patent, clear nasal discharge, mild inflammation, no sinus tenderness. Mouth: Oral pharynx red without lesions or masses, good dentition, MMM. Postnasal drip Neck: Supple, trachea midline, no enlargement of anterior or posterior cervical nodes, no thyroid masses or goiter palpable. Cardio: Regular rate and rhythm, s1 and s2 normal, no murmur appreciated. Resp: Clear to auscultation bilaterally, no rhonchi, rales, wheezing or rubs Course Course Emergency Course: Portions of this record may have been created with voice recognition software. Level of Care: Express Care Visit Vital Signs Vital signs: Vital Signs Temperature 36.5 C 11/30/24 11:00 Pulse Rate 70 11/30/24 11:00 Respiratory Rate 16 11/30/24 11:00 Blood Pressure 152/95 H 11/30/24 11:00 Pulse Oximetry 100 11/30/24 11:00 Oxygen Delivery Room Air 11/30/24 11:00 Temperature 36.5 C 11/30/24 11:00 Pulse Rate 70 11/30/24 11:00 Respiratory Rate 16 11/30/24 11:00 Blood Pressure 152/95 H 11/30/24 11:00 Pulse Oximetry 100 11/30/24 11:00 Oxygen Delivery Room Air 11/30/24 11:00 Vital signs reviewed MDM - URI/Sore Throat MDM Narrative Medical decision making narrative: At the time of visit patient is resting comfortably on the exam table. Patient appears to be nontoxic. Complaints of sore throat, sneezing, nasal congestion, cough, and fatigue times 2-3 days. 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 Denies any fevers. Does report some chills and body aches. Has not taken any medications to treat her symptoms. On exam obdulio hickman has bilateral TM congestion, clear nasal drainage with mild anterior turbinate inflammation, oral pharynx mildly red with postnasal drip, lung sounds are clear, heart rates regular rate and rhythm. COVID, flu, and strep test were ordered. Labs: COVID, influenza, and strep test were negative in the clinic today. We will send strep for culture. Plan: I suspect patient has URI/pharyngitis/postnasal drip. Patient denies needing a work note. Recommend Coricidin HBP for cold/flu symptoms as patient does have high history of high blood pressure and her blood pressure is 152/95 in the clinic today. Supportive measures were discussed with the patient and they voiced understanding discharge instructions and agrees to treatment plan. Return precautions reviewed Differential Diagnosis Differential diagnosis: Likely upper respiratory infection, otitis media, sinusitis, viral infection, bronchitis, influenza, pharyngitis and other (COVID) Lab Data Labs: Lab Results 11/30/24 Range/Units 11:22 POC Influenza A Ag Negative (Negative) POC Influenza B Ag Negative (Negative) POC SARS CoV-2 Ag Negative (Negative) POC Grp A Strep Screen Negative (Negative) Discharge Plan Discharge Clinical Impression: URI (upper respiratory infection) Qualifiers: URI type: unspecified URI Qualified Code(s): J06.9 - Acute upper respiratory infection, unspecified Pharyngitis Qualifiers: Pharyngitis/tonsillitis etiology: unspecified etiology Qualified Code(s): J02.9 - Acute pharyngitis, unspecified Patient Disposition: Home Condition: Stable Instructions: Antibiotic Form, Pharyngitis (ED), Cold Symptoms (ED) Additional Instructions: COVID, influenza, and strep testing were all negative in the clinic today. We will send strep for culture if this comes back positive we will contact you and send you in antibiotics at that time. No sign of bacterial infection in the clinic today. May take Coricidin HBP for cold/flu symptoms Increase fluids and stay well hydrated May take Tylenol or motrin as directed on bottle for pain/fever May use Flonase 1 spray in each nare daily May take OTC antihistamines such as Zyrtec or Claritin daily as directed on bottle May apply Vicks vapor rub to chest to open sinuses Sinus rinses for congestion Cepacol spray, cough drops, throat lozenges, warm tea with honey/lemon, gargle salt water to soothe throat BRAT diet for diarrhea Clear liquids x 24 hours then advance as tolerated for nausea/vomiting Go to the ED if you develop a worsening in your condition- high fever not controlled by Tylenol or Motrin, dehydration, weakness, lethargy, shortness of breath, or chest pain. Follow up with your PCP in 3-5 days if symptoms persist. Patient Language: [place] Prescriptions: No Action lisinopril 20 mg tablet famotidine 20 mg tablet pantoprazole 40 mg tablet,delayed release (DR/EC) PO Trulicity 1.5 mg/0.5 mL pen injector SUBCUT triamterene-hydrochlorothiazid 75-50 mg tablet 1 tablet PO DAILY cholecalciferol (vitamin D3) 50 mcg (2,000 unit) capsule 50 mcg PO DAILY Fish Oil 100-160-1,000 mg capsule See Rx Instructions PO .COMPLEX Qty: 180 0RF Rx Instructions: 1,000 mg BID orally; sotalol 80 mg tablet See Rx Instructions .ROUTE .COMPLEX Qty: 60 5RF Dose Instruction: TAKE 1 TABLET BY MOUTH EVERY 12 HOURS Rx Instructions: TAKE 1 TABLET BY MOUTH EVERY 12 HOURS Follow-up/Referrals: Butch,Davis Mahmood [Primary Care Provider, Unknown] Time of Disposition: 11:27 Quality NIHSS Nursing Documentation ED NIHSS nursing documentation: reviewed/agree
[2024-11-30 11:00] VITALS: BP 152/95; PULSE 70; RESP 16; TEMP 36.5; O2SAT 100
[2024-11-30 11:24] LABS: EDCOVIDSCREEN Negative (Negative); EDINFLUASCREEN Negative (Negative); EDINFLUBSCREEN Negative (Negative); EDSTREPNEGPOS1 Negative (Negative)
--- OUTSIDE RECORDS SUMMARY | 2024-11-30 13:56 | XMS_ITS | Clinical Summary ---
Author Organization [facility] Address [address] [place] [address] Phone Care Team Providers Care Supervisor Harvesting Name Role Phone Caleb Haynes MD Unavailable Davis Rae PAC Primary Care Provider Georgiana Olivares APRN, SOCIOLOGY PROFESSOR Unavailable Allergies Active Allergy Reactions Criticality Noted Date Comments Hydrocodone Swelling Medium 10/13/2018 rthroat tightens Medications sotalol (BETAPACE) 80 MG Tablet 021 Active aspirin EC 81 MG Tablet Delayed Response Take 81 mg by mouth daily. Active ondansetron (Zofran) 4 MG TabletIndicatio ns:Nausea Take 1 Tablet by mouth every 8 hours as needed for Nausea - 1st line. 20 Tablet 024 Active pantoprazole (PROTONIX) 40 MG Tablet Delayed ResponseIndicat ions:Gastroesop hageal reflux disease, unspecified whether esophagitis present Take 1 Tablet by mouth daily. 90 Tablet 1 025 Active famotidine (PEPCID) 20 MG TabletIndicatio ns:Gastroesopha geal reflux disease, unspecified whether esophagitis present Take 1 Tablet by mouth 2 times daily. 180 Tablet 1 025 Active tirzepatide-rory ght management (Zepbound) 2.5 MG/0.5ML Solution Auto-injectorIn dications:CONNIE on CPAP,Class 3 severe obesity due to excess calories with serious comorbidity and body mass index (BMI) of 50.0 to 59.9 in adult 2.5 mg by Subcutaneous route once a week. 2 mL Active lisinopril (PRINIVIL, ZESTRIL) 40 MG TabletIndicatio ns:Primary hypertension Take 1 Tablet by mouth daily. 90 Tablet 3 Active triamterene-hyd rochlorothiazid e (MAXZIDE) 75-50 MG TabletIndicatio ns:Primary hypertension Take 1 tablet by mouth once daily 90 Tablet 1 Active fenofibrate 160 MG Tablet 021 2024 Discontinued(M ed List Clean Up) lisinopril (PRINIVIL, ZESTRIL) 20 MG TabletIndicatio ns:Primary hypertension Take 1 tablet by mouth once daily 90 Tablet 025 2024 Discontinued(R eorder) triamterene-hyd rochlorothiazid e (MAXZIDE) 75-50 MG TabletIndicatio ns:Primary hypertension Take 1 tablet by mouth once daily 90 Tablet 025 2024 Discontinued SITagliptin (Januvia) 100 MG TabletIndicatio ns:Type 2 diabetes mellitus without complication, without long-term current use of insulin Take 1 Tablet by mouth daily. 90 Tablet 1 025 2024 Discontinued(M ed List Clean Up) Active Problems Problem Noted Date Diagnosed Date SVT (supraventricular tachycardia) 08/05/2023 Type 2 diabetes mellitus wit hout complication, without long-term current use of insulin 04/02/2023 Primary hypertension 04/02/2023 Hypercholesteremia 04/02/2023 Morbid obesity 04/02/2023 Gastroesophageal reflux dise ase with esophagitis without hemorrhage 11/19/2020 Encounters Date Type Department Care Team Description 11/28[facility] [place] [address] [place] [address] Davis Rae, PAC Medication Refill 11/25/2024 3:03 PM CDT - 11/25/2024 4:[address] [facility] Emergency [address] [place] [address] Rom Orozco, Essential hypertension Discharge Disposition: Discharged to home or Selfcare 11/25/2024 2:30 PM CDT Office Visit [facility] [address] [place] [address] Georgiana Olivares APRN, RICHARDSON Primary hypertension (Primary Dx); SVT (supraventricular tachycardia); Paroxysmal atrial fibrillation; Hypercholesteremia; Type 2 diabetes mellitus without complication, without long-term current use of insulin; Morbid obesity Discharge Disposition: Discharged to home or Selfcare 11/25/2024 Travel 11/15/2024 Telephone [facility] [address] [place] [address] Davis Rae, PAC Prior Authorization (Zepbound 2.5MG/0.5ML) 11/10/2024 9:45 AM CDT Office Visit [facility] [place] [address] [place] [phone] Davis Rae PAC CONNIE on CPAP (Primary Dx); Class 3 severe obesity due to excess calories with serious comorbidity and body mass index (BMI) of 50.0 to 59.9 in adult; Type 2 diabetes mellitus without complication, without long-term current use of insulin; SVT (supraventricular tachycardia); Primary hypertension; Hypercholesteremia; Gastroesophageal reflux disease with esophagitis without hemorrhage Discharge Disposition: Discharged to home or Selfcare 11/10/2024 Travel 10/27/2024 10:20 AM CDT Lab [facility] [place] [address] [place] [phone] Type 2 diabetes mellitus without complication, without long-term current use of insulin; Hypercholesteremia; Primary hypertension; Need for hepatitis C screening test Discharge Disposition: Discharged to home or Selfcare 10/27/2024 Results Follow-Up [facility] [place] [address] [place] [address] Brianna Bazzi APRN, RICHARDSON HEMOGLOBIN A1C W/ ESTIMATED GLUCOSE, CMP (COMPREHENSIVE METABOLIC PANEL), LIPID PANEL, Additional followed-up results: 2 10/27/2024 Travel 10/20/2024 Telephone [facility] [place] [address] [place] [address] Davis Rae, PAC Appointment 10/04/2024 MyChart RX Renewal [facility] [place] [address] [place] [address] Davis Rae, PAC Medication Renewal Declined 09/29/2024 Telephone [facility] [address] [place] [phone] Davis Rae, PAC Prior Authorization (Dulaglutide (Trulicity) 1.5 MG/0.5ML Solution Auto-injector) 09/28/2024 MyChart RX Renewal [facility] [place] [address] [place] [address] Davis Rae, PAC Medication Renewal Declined 09/26/2024 Refill [facility] [place] [address] [place] [address] Davis Rae, PAC Medication Refill 09/24/2024 Refill [facility] [place] [address] [place] [address] Davis Rae, PAC Medication Refill 08/30/2024 MyChart RX Renewal [facility] [place] [address] [place] [address] Davis Rae, PAC Medication Renewal Declined 08/30/2024 [address] [facility] [place] [address] [place] [address] Davis Rae, PAC Medication Refill from Last 3 Months Immunizations Immunization Administration Dates Next Due Covid-19, Mrna, Lnp-s, Pf, 30 Mcg/0.3 Ml Dose (P fizer) 02/06/2021,01/09/2021 Covid-19, Mrna, Lnp-s, Pf, 3 0 Mcg/0.3 Ml Dose, Casimiro-sucrose (Pfizer aceves top) 07/16/2021 Influenza, Injectable, Quadrivalent 12/11/2016 Influenza, Seasonal, Injectable, Undefined 02/28 Family History Medical History Relation Name Comments Psoriasis Daughter Diabetes Father Hypertension Father Renal Failure Father Arrhythmia Half-Sister Breast Cancer Maternal Aunt Diabetes Maternal Grandfather Diabetes Maternal Grandmother Arrhythmia Mother A-Fib Hypertension Mother Breast Cancer Paternal Aunt Diabetes Paternal Grandfather Diabetes Paternal Grandmother Diabetes Sister Hypertension Sister Asthma Son 1 Asthma Son 2 Relation Name Status Comments Daughter Alive Father Half-Sister Alive Maternal Aunt Maternal Grandfather Maternal Grandmother Mother Alive Paternal Aunt Paternal Grandfather Paternal Grandmother Sister Alive Son 1 Alive Son 2 Alive Social History Tobacco Use Types Packs/Day Years Used Date Smoking Tobacco: Former Cigarettes 1 6.6 S tarted: 04/21/2018 Passive Smoke Exposure: Current Smokeless Tobacco: Never Tobacco Cessation:Counseling Given: No Alcohol Use Standard Drinks/Week Comments Not Currently 0 (1 standard drink = 0.6 oz pur e alcohol) Once a year PHQ-2 Answer Date Recorded Total Score - Questions 1-9 0 02/09 AUDIT-C Answer Date Recorded Q1: How often do you have a drink containing alcohol? Never 08/19/2024 Q2: How many drinks containi ng alcohol do you have on a typical day when you are drinking? Patient does not drink Q3: How often do you have si x or more drinks on one occasion? Never 08/19/2024 Education Answer Date Recorded What is the highest level of school you have completed or the highest degree you have received? 9th grade 11/13/2020 Sexually Active Control Partners Comments Yes Comments No Sex and Gender Information Value Date Recorded Sex Assigned at Not on file Legal Sex Female 9:26 AM CDT Gender Identity Not on file Sexual Orientation Not on file Last Filed Vital Signs Vital Sign Reading Time Taken Comments Blood Pressure 160/85 11/25/2024 4:15 PM CDT Pulse 81 11/25/2024 4:15 PM CDT Temperature 36.9 C (98.5 F) 11/25/2024 2:56 PM CDT Respiratory Rate 17 11/25/2024 4:15 PM CDT Oxygen Saturation 97% 11/25/2024 4:15 PM CDT Inhaled Oxygen Concentration - - Weight 126.6 kg (279 lb 1.6 oz) 11/25/2024 2:56 PM CDT Height 154.9 cm (5' 1) 11/25/2024 2:56 PM CDT Body Mass Index 52.74 11/25/2024 2:56 PM CDT Plan of Treatment Upcoming Encounters Date Type Department Care Team (Late st Contact Info) Description 12/08/2024 9:00 AM CDT Clinical Support [facility] Medical [facility] - Cardiology [facility] [address] [place] [address] Nurse, [place] [facility] [place] 12/09/2024 2:00 PM CDT [facility] [address] [place] [address] Georgiana Olivares APRN, SOCIOLOGY PROFESSOR [address] [place] [address] Discharge Disposition: Discharged to home or Selfcare 02/08/2025 10:00 AM POSITION CLASSIFICATION SPECIALIST Office Visit [facility] [address] [place] [address] Shana Hollins MD [address] [address] 03/02/2025 4:00 PM POSITION CLASSIFICATION SPECIALIST [facility]ment [facility] [address] [place] [address] Georgiana Olivares, JIMMIE, SOCIOLOGY PROFESSOR [address] [place] [address] Discharge Disposition: Discharged to home or Selfcare 05/11/2025 8:40 AM CDT [facility] [place] [address] [place] [address] 05/18/2025 8:15 AM CDT Office Visit [facility] [place] [address] [place] [address] Davis Rae PAC [address] [place] [address] Health Maintenance Due Date Last Done Comments TdaP Immunization 1985 Hepatitis B Immunization (1 of 3 - 19+ 3-dose series) 2004 Pneumococcal Immunization Combined (1 of 2 - PCV) 2004 Human Papillomavirus (HPV) Immunization (1 - 3-dose SCDM series) 2012 Diabetes: Eye Exam 04/14/2024 04/15/2023, 04/15/2023 Influenza Immunization (#1) 2024 12/11/2016, 0 02/29/2012 SARS-COV-2 Immunization ( season) 2024 07/16/2021, 02/06/2021, 01/09/2021 Diabetes: Hemoglobin A1c 04/26/20252 025, 04/20/2024, 10/05/2023, Additional history exists Diabetes: Foot Exam 11/10/2025 11/10/2024, 11/10/2024, 11/10/2024 Diabetes: Nephropathy Screening 11/25/2025 11/25/2024, 10/27/2024, 04/20/2024, Additional history exists Respiratory Syncytial Virus (RSV) Immunization (Adult) (1 - 1-dose 75+ series) 2060 Hepatitis C Virus (HCV) Screening Completed 10/27/2024 Meningococcal Immunization (ACWY) Aged Out No longer eligible based on patient's age to complete this topic Rotavirus Immunization Aged Out No lo nger eligible based on patient's age to complete this topic Procedures Procedure Name Priority Date/Time Associated Diagnosis Comments CBC WITH AUTO DIFFERENTIAL STAT 11/25/2024 3:17 PM CDT TROPONIN I, HIGH SENSITIVITY (HSTRP) STAT 11/25/2024 3:17 PM CDT COMPLETE BLOOD COUNT (CBC) WITH DIFF STAT 11/25/2024 3:17 PM CDT CMP (COMPREHENSIVE METABOLIC PANEL) STAT 11/25/2024 3:17 PM CDT EKG 12 LEAD STAT 11/25/2024 3:07 PM CDT EKG SCAN 11/25/2024 12:00 AM CDT THYROID SCREEN WITH REFLEX Routine 10/27/2024 10:16 AM CDT Primary hypertension CBC WITH AUTO DIFFERENTIAL Routine 10/27/2024 10:16 AM CDT Hypercholesteremia HEPATITIS C ANTIBODY Routine 10/27/2024 10:16 AM CDT Need for hepatitis C screening test THYROID SCREEN WITH REFLEX Routine 10/27/2024 10:16 AM CDT Primary hypertension LIPID PANEL Routine 10/27/2024 10:16 AM CDT Hypercholesteremia CMP (COMPREHENSIVE METABOLIC PANEL) Routine 10/27/2024 10:16 AM CDT Type 2 diabetes mellitus without complication, without long-term current use of insulin Primary hypertension Hypercholesteremia COMPLETE BLOOD COUNT (CBC) WITH DIFF Routine 10/27/2024 10:16 AM CDT Hypercholesteremia HEMOGLOBIN A1C W/ ESTIMATED GLUCOSE Routine 10/27/2024 10:16 AM CDT Type 2 diabetes mellitus without complication, without long-term current use of insulin HM DILATED EYE EXAM 04/15/2023 1 2:00 AM POSITION CLASSIFICATION SPECIALIST from Last 3 Months or Most Recently Relevant to Health Maintenance Results * TROPONIN I, HIGH SENSITIVITY (HSTRP) (11/25/2024 3:17 PM CDT) [facility] TROPONIN I, HIGH SENSITIVITY- HARDY <2.7 <=14.0 ng/L 11/25/2024 4:01 PM CDT [facility] Comment: High-sensitivity troponin I results are reported in ng/L making the result appear to be 1,000 times higher than the contemporary troponin I value which is reported in ng/ml. Results from [facility]. Blood Venipuncture / Unknown 11/25/2024 3:17 PM CDT 11/25/2024 3:31 PM CDT us Rom Orozco DO CHEMISTRY ORDERABLES Fi nal Result [facility] [address] [place] [address] * (ABNORMAL) CBC with Auto Differential (11/25/2024 3:17 PM CDT) Only the most recent of2 resultswithin the time period is included. [facility] WBC 10.09 4.00 - 12.00 10(3)/mcL 11/25/2024 3:35 PM CDT [facility] RBC 4.36 3.80 - 5.30 10(6)/mcL 11/25/2024 3:35 PM CDT [facility] HEMOGLOBIN (HGB) 12.6 12.0 - 15.8 g/dL 11/25/2024 3:35 PM CDT [facility] HEMATOCRIT (HCT) 37.6 36.0 - 47.0 % 11/25/2024 3:35 PM CDT [facility] MCV 86.2 82.0 - 96.0 fL 11/25/2024 3:35 PM CDT [facility] MCH 28.9 26.0 - 34.0 pg 11/25/2024 3:35 PM CDT [facility] MCHC 33.5 31.0 - 36.0 g/dL 11/25/2024 3:35 PM CDT [facility] PLATELET COUNT 323 140 - 440 10(3)/mcL 11/25/2024 3:35 PM CDT [facility] RDW 12.8 11.8 - 15.5 % 11/25/2024 3:35 PM CDT [facility] MPV 9.8 9.7 - 12.4 fL 11/25/2024 3:35 PM CDT [facility] NEUTROPHILS 62.5 47.0 - 73.0 % 11/25/2024 3:35 PM CDT [facility] LYMPHOCYTES 28.4 18.0 - 42.0 % 11/25/2024 3:35 PM CDT [facility] MONOCYTES 6.2 4.0 - 12.0 % 11/25/2024 3:35 PM CDT [facility] EOSINOPHILS 1.9 0.0 - 5.0 % 11/25/2024 3:35 PM CDT [facility] BASOPHILS 0.6 0.0 - 1.0 % 11/25/2024 3:35 PM CDT [facility] IMMATURE GRANULOCYTE 0.4 0.0 - 0.4 % 11/25/2024 3:35 PM CDT [facility] ABSOLUTE NEUTROPHILS 6.30 1.60 - 7.70 10(3)/mcL 11/25/2024 3:35 PM CDT [facility] ABSOLUTE LYMPHOCYTES 2.87 1.30 - 3.20 10(3)/mcL 11/25/2024 3:35 PM CDT [facility] ABSOLUTE MONOCYTES 0.63 0.20 - 1.00 10(3)/mcL 11/25/2024 3:35 PM CDT [facility] ABSOLUTE EOSINOPHIL 0.19 0.00 - 0.40 10(3)/mcL 11/25/2024 3:35 PM CDT [facility] ABSOLUTE BASOPHILS 0.06 0.00 - 0.10 10(3)/mcL 11/25/2024 3:35 PM CDT [facility] ABSOLUTE IMMATURE GRANULOCYTE 0.04(H) 0.00 - 0.03 10 (3) mcL. 11/25/2024 3:35 PM CDT [facility] NRBC PER 100 WBC 0 11/26/19 3:35 PM CDT [facility] Blood Venipuncture / Unknown 11/25/2024 3:17 PM CDT 11/25/2024 3:31 PM CDT us Rom Orozco DO HEMATOLOGY ORDERABLES F inal Result [facility] [address] [place] [address] * (ABNORMAL) CMP (Comprehensive Metabolic Panel) (11/25/2024 3:17 PM CDT) Only the most recent of2 resultswithin the time period is included. SODIUM 141 136 - 145 mmol/L 11/25/2024 3:57 PM CDT [facility] POTASSIUM 3.6 3.5 - 5.1 mmol/L 11/25/2024 3:57 PM CDT [facility] CHLORIDE 106 98 - 107 mmol/L 11/25/2024 3:57 PM CDT [facility] CO2, VENOUS 25 22 - 30 mmol/L 11/25/2024 3:57 PM CDT [facility] ANION GAP 13.6 <18.0 mmol/L 11/25/2024 3:57 PM CDT [facility] GLUCOSE 92 70 - 99 mg/dL 11/25/2024 3:57 PM CDT [facility] BUN 13 5 - 18 mg/dL 11/25/2024 3:57 PM CDT [facility] CREATININE, BLOOD 0.83 0.60 - 1.00 mg/dL 11/25/2024 3:57 PM CDT [facility] BUN/CREATININE RATIO 16 12 - 20 ratio 11/25/2024 3:57 PM T [facility] TOTAL PROTEIN 8.2(H) 6.0 - 8.0 g/dL 11/25/2024 3:57 PM CDT [facility] ALBUMIN 4.6 3.5 - 5.0 g/dL 11/25/2024 3:57 PM CDT [facility] A/G RATIO 1.3 1.0 - 2.2 11/25/2024 3:57 PM CDT [facility] CALCIUM 9.5 8.7 - 10.5 mg/dL 11/25/2024 3:57 PM T [facility] T BILI 0.4 0.2 - 1.2 mg/dL 11/25/2024 3:57 PM T [facility] SGOT (AST) 29 <43 U/L 11/25/2024 3:57 PM T [facility] SGPT (ALT) 25 <56 U/L 11/25/2024 3:57 PM CDT [facility] ALKALINE PHOSPHATASE 93 40 - 150 U/L 11/25/2024 3:57 PM T [facility] GFR, ESTIMATED >60 >=60 11/25/2024 3:57 PM CDT [facility] Comment: Creatinine Clearance is the preferred criteria for selecting drug dose adjustments in renally impaired patients. The GFR is provided as additional pertinent clinical information. GFR is reported in mL/min/1.73 sq m. Calculation based on the 2020 Chronic Kidney Disease Epidemiology Collaboration (CKD-EPI) equation refit without adjustment for race. GFR, EST. >60 >=60 025 3:57 PM T [facility] Comment: Creatinine Clearance is the preferred criteria for selecting drug dose adjustments in renally impaired patients. The GFR is provided as additional pertinent clinical information. GFR is reported in mL/min/1.73 sq m. Calculation based on the 2009 Chronic Kidney Disease Epidemiology Collaboration (CKD-EPI). GFR, EST. NONAFRICAN >60 >=60 11/25/2024 3:57 PM CDT [facility] Comment: Creatinine Clearance is the preferred criteria for selecting drug dose adjustments in renally impaired patients. The GFR is provided as additional pertinent clinical information. GFR is reported in mL/min/1.73 sq m. Calculation based on the 2009 Chronic Kidney Disease Epidemiology Collaboration (CKD-EPI). Blood Venipuncture / Unknown 11/25/2024 3:17 PM CDT 11/25/2024 3:31 PM CDT us Rom Orozco DO CHEMISTRY ORDERABLES Fi nal Result Performing Organization Address [facility] Co de Phone Number [facility] [address] [place] [address] * EKG 12 LEAD (11/25/2024 3:07 PM CDT) Ventricular Rate 80 BPM EXTERNAL EKG Atrial Rate 80 BPM EXTERNAL EKG P-R Interval 140 ms EXTERNAL EKG QRS Duration 84 ms EXTERNAL EKG Q-T Duration 390 ms EXTERNAL EKG QTC CALCULATION 449 ms EXTERNAL EKG P Reading 45 degrees EXTERNAL EKG R Reading 8 degrees EXTERNAL EKG T Reading 39 degrees EXTERNAL EKG 11/25/2024 3:07 PM CDT Impressions EXTERNAL EKG - 11/28/2024 1:00 PM CDT Normal sinus rhythm Poor R-wave progression Borderline ECG No previous ECGs available Confirmed by Vanessa Rice ([id number]) on 11/28/2024 1:00:29 PM Narrative Procedure Note Vanessa Rice MD PhD - 11/28/2024 IMPRESSION: Normal sinus rhythm Poor R-wave progression Borderline ECG No previous ECGs available Confirmed by Vanessa Rice ([id number]) on 11/28/2024 1:00:29 PM us Rmo Orozco DO IMG ECG ORDERABLES Kiana l Result Performing Organization Address City/[facility]/ZIP Co de Phone Number EXTERNAL EKG * EKG SCAN (11/25/2024 12:00 AM CDT) 11/25/2024 us Provider Scan IMG ECG ORDERABLES Final Result Performing Organization Address City/[facility] Co de Phone Number RESULTING AGENCY * THYROID SCREEN WITH REFLEX (10/27/2024 10:16 AM CDT) Pathologist [facility] TSH 2.168 0.300 - 5.000 mIU/L 10/27/2024 1:36 PM CDT [facility] Blood Venipuncture / Unknown 10/27/2024 10:16 AM CDT 10/27/2024 10:16 AM CDT us Davis Rae PAC CHEMISTRY ORDERABLES Final R esult Performing Organization Address [facility] de Phone Number [facility] [address] [place] [address] * HEMOGLOBIN A1C W/ ESTIMATED GLUCOSE (10/27/2024 10:16 AM CDT) Pathologist [facility] HGB-A1C 5.8 4.0 - 6.0 % 10/27/2024 1:14 PM CDT [facility] Est Average Glucose 119.8 mg/dL 10/27/2024 1:14 PM CDT [facility] Blood Venipuncture / Unknown 10/27/2024 10:16 AM CDT 10/27/2024 10:16 AM CDT Narrative [facility] - 10/27/2024 1:14 PM CDT HEMOGLOBIN A1C: DIABETIC PATIENTS: WELL-CONTROLLED: 6.2 - 7.0 INTERMEDIATE WELL-CONTROLLED: 7.0 - 9.0 POORLY-CONTROLLED: >9.0 Specimens containing greater than 5% of Hemoglobin F may result in lower than expected % HbA1C results. us Davis Rae PAC CHEMISTRY ORDERABLES Final R esult [facility] [address] [facility] [place] [address] * (ABNORMAL) LIPID PANEL (10/27/2024 10:16 AM CDT) CHOLESTEROL 134 <200 mg/dL 10/27/2024 1:38 PM CDT [facility] TRIGLYCERIDES 310(H) <150 mg/dL 10/27/2024 1:38 PM CDT [facility] HDL CHOLESTEROL 28(L) >40 mg/dL 1:38 PM CDT [facility] LDL 44 <130 mg/dL 10/27/2024 1:38 PM CDT [facility] VLDL 62(H) 10 - 50 mg/dL 10/27/2024 1:38 PM CDT [facility] CHOL/HDL RATIO 4.8(H) 0.0 - 4.4 10/27/2024 1:38 PM CDT [facility] NON-HDL CHOLESTEROL 106 <130 mg/dL 10/27/2024 1:38 PM CDT [facility] IS THE PATIENT REQUIRED TO BE FASTING? Yes 10/27/2024 1:38 PM CDT [facility] HAS THE PATIENT BEEN FASTING? Yes 10/27/2024 1:38 PM CDT [facility] Blood Venipuncture / Unknown 10/27/2024 10:16 AM CDT 10/27/2024 10:16 AM CDT Davis Rae PAC CHEMISTRY ORDERABLES Final R esult [facility] [address] [facility] [place] [address] * HEPATITIS C ANTIBODY (10/27/2024 10:16 AM CDT) hepatitis C antibody 0.13 <1 S/CO 10/27/2024 11:[address] [facility] Comment: Signal/Cutoff ratio < 0.79 is Nondetected Signal/Cutoff ratio 0.80-0.99 is Grayzone Signal/Cutoff ratio > 0.99 is Detected Supplemental assays are recommended if signal/cutoff ratio is >/=1.00. Signal/cutoff ratio result >/= 5.00 is 97% predictive of positivity for recombinant immunoblot assay (RIBA) and will be reported to the [place] Department of Public [facility] as required. Blood Venipuncture / Unknown 10/27/2024 10:16 AM CDT 10/27/2024 10:16 AM CDT us Davis Rae PAC CHEMISTRY ORDERABLES Final R esult Performing Organization Address City/[facility] Co de Phone Number [facility] [address] [place] [address], [place] * DILATED EYE EXAM (04/15/2023 12:00 AM POSITION CLASSIFICATION SPECIALIST) 04/15/2023 us Provider Scan PROCEDURE/MINOR SURGICAL ORDERAB LES Final Result Performing Organization Address City/[facility] Co de Phone Number SCAN from Last 3 Months or Most Recently Relevant to Health Maintenance [facility] Care Teams Supervisor Harvesting Relationship Specialty Start Date End Date Davis Rae, PAC [address] [place] [phone] PCP - General Physician Ironworker Machine Operator 08/26/22 Caleb Haynes MD [address] [address] [address] Consulting Physician General Surgery 02/14/22 Georgiana Olivares APRN, SOCIOLOGY PROFESSOR [address] [place] [address] Nurse Practitioner Cardiology 11/29/24
--- OUTSIDE RECORDS SUMMARY | 2024-11-30 13:56 | XMS_ITS | Encounter Summary ---
Author Organization [facility] Address [address] [place] [address] Phone Care Team Providers Care Foot Setter Name Role Phone Gay Weeks APRN, CNP Primary Care Provider Caleb Haynes MD Unavailable Davis Rae Primary Care Provider [phone] Georgiana Olivares APRN, CNP Unavailable Reason for Visit * Reason Comments Medication Refill Encounter Details Date Type Department Care Team (Late st Contact Info) Description 03/28/2022 Refill [facility] - [facility] Care - [place] [address] [place] [address] Gay Weeks APRN, RN OCCUPATIONAL HEALTH [address] [place], [place] [id number] Medication Refill Social History Tobacco Use Types Packs/Day Years Used Date Smoking Tobacco: Former Smokeless Tobacco: Never Alcohol Use Standard Drinks/Week Comments Not Currently 0 (1 standard drink = 0.6 oz pur e alcohol) Once a year PHQ-2 Answer Date Recorded Total Score - Questions 1-9 0 09/0 10/2020 Education Answer Date Recorded What is the highest level of school you have completed or the highest degree you have received? 9th grade 11/13/2020 Comments No Sex and Gender Information Value Date Recorded Sex Assigned at Not on file Legal Sex Female 9:26 AM CDT Gender Identity Not on file Sexual Orientation Not on file documented as of this encounter Miscellaneous Notes * Telephone Encounter - Davis Rae PAC - 03/28/2022 2:38 PM CST Rx requests approved. NT HANDLER * Telephone Encounter - Alina Chapman RN - 03/28/2022 10:18 AM CST Medication failed the protocol, provider to review and approve the medication order if appropriate. Requested Prescriptions Pending Prescriptions Disp Refills triamterene-hydrochlorothiazide (MAXZIDE) 75-50 MG Tablet [Pharmacy Med Name: Triamterene-HCTZ 75-50 MG Oral Tablet] 90 Tablet 0 Sig: Take 1 tablet by mouth once daily Diuretics Protocol Failed - 03/28/2022 10:02 AM Failed - Serum potassium on record in past 12 months POTASSIUM Date Value Ref Range Status 10/19/2020 4.0 3.5 - 5.1 mmol/L Final Failed - Serum sodium on record in past 12 months SODIUM Date Value Ref Range Status 10/19/2020 138 136 - 144 mmol/L Final Failed - GFR on record in past 12 months GFR, EST. NONAFRICAN Date Value Ref Range Status 10/19/2020 >60 >=60 Final Passed - Blood pressure on record in past 12 months Clinician-entered: BP Readings from Last 3 Encounters: 02/19/22 118/68 01/21/22 132/84 07/18/21 130/70 Patient-entered: No data recorded Passed - Visit with relevant provider in past 12 months or upcoming 90 days Recent Visits Date Type Provider Dept 01/21/22 Office Visit Gay Weeks APRN, RN OCCUPATIONAL [facility]ALTH [facility] 07/18/21 Office Visit Hardeep Zaidi MD [facility] Showing recent visits within past 365 days and meeting all other requirements Future Appointments No visits were found meeting these conditions. Showing future appointments within next 90 days and meeting all other requirements omeprazole (PriLOSEC) 40 MG CAPSULE DELAYED RELEASE [Pharmacy Med Name: Omeprazole 40 MG Oral Capsule Delayed Release] 30 Capsule 0 Sig: Take 1 capsule by mouth once daily Proton Pump Inhibitors Protocol Passed - 03/28/2022 10:02 AM Passed - Visit with relevant provider in past 12 months or upcoming 90 days Recent Visits Date Type Provider Dept 01/21/22 Office Visit Gay Weeks APRN, [place] [facility] 07/18/21 Office Visit Hardeep Zaidi MD [facility] Showing recent visits within past 365 days and meeting all other requirements Future Appointments No visits were found meeting these conditions. Showing future appointments within next 90 days and meeting all other requirements NT HANDLER documented in this encounter Plan of Treatment Upcoming Encounters Date Type Department Care Team (Late st Contact Info) Description 12/08/2024 9:00 AM CDT Clinical Support [facility] - Cardiology [facility] [address] [place] [address] Nurse, [place] [facility] [place] 12/09/2024 2:00 PM CDT Appointment [facility] Cardiology Services 1 [place] [address] Georgiana Olivares APRN, [place] [address] [place] [address] Discharge Disposition: Discharged to home or Selfcare 02/08/2025 10:00 AM CEMENT HANDLER Office Visit [facility] Cardiology [facility] [address] [place] [address] Shana Hollins MD [address] [address] 03/02/2025 4:00 PM CEMENT HANDLER [facility] 1 [place] [address] Georgiana Olivares APRN, RN OCCUPATIONAL HEALTH [address] [place] [address] Discharge Disposition: Discharged to home or Selfcare 05/11/2025 8:40 AM CDT Lab [facility] - [place] [address] [place] [address] 05/18/2025 8:15 AM CDT Office Visit [facility] - [place] [address] [place] [address] Davis Rae PAC [address] [place] [address] documented as of this encounter Visit Diagnoses Not on filedocumented in this encounter Additional Health Concerns Assessment Noted Time PHQ-9 Depression Total Score: 0 10/19/19 21 10:00 AM CDT documented as of this encounter Care Teams Foot Setter Relationship Specialty Start Date End Date Gay Weeks APRN, RN OCCUPATIONAL HEALTH [address] [place] [address] PCP - General Advanced Practice Nurse 10/18/20 08/25/22 Davis Rae PAC [address] [place] [address] PCP - General Physician Turner In 08/26/22 Caleb Haynes MD [address] [address] Consulting Physician General Surgery 02/14/22 Georgiana Olivares APRN, RN OCCUPATIONAL HEALTH [address] [place] [address] Nurse Practitioner Cardiology 11/29/24 documented as of this encounter
--- OUTSIDE RECORDS SUMMARY | 2024-11-30 13:56 | XMS_ITS | Encounter Summary ---
Author Organization [facility] Address [address] [place] [address] Phone Care Team Providers Care Unit Assembler Name Role Phone Caleb Haynes MD Unavailable [phone] Davis Rae PAC Primary Care Provider [phone] Georgiana Olivares APRN, LOAN CLOSER Unavailable Encounter Details Date Type Department Care Team (Late st Contact Info) Description 10/27/2024 Results Follow-Up [facility] - Primary Care - [place] [address] [place] [address] Brianna Bazzi APRN, LOAN CLOSER [address] [place] [address] HEMOGLOBIN A1C W/ ESTIMATED GLUCOSE, CMP (COMPREHENSIVE METABOLIC PANEL), LIPID PANEL, Additional followed-up results: 2 Social History Tobacco Use Types Packs/Day Years Used Date Smoking Tobacco: Former Cigarettes 1 6.6 S tarted: 04/21/2018 Passive Smoke Exposure: Current Smokeless Tobacco: Never Alcohol Use Standard Drinks/Week [...] on file documented as of this encounter Plan of Treatment Upcoming Encounters Date Type Department Care Team (Late st Contact Info) Description 12/08/2024 9:00 AM CDT Clinical Support [facility] Cardiology [facility] [address] [place] [address] Nurse, [place] [facility] [place] 12/09/2024 2:00 PM CDT [facility]ment [facility] 1 [place] [address] Georgiana Olivares APRN, LOAN CLOSER [address] [place] [address] Discharge Disposition: Discharged to home or Selfcare 02/08/2025 10:00 AM SENIOR BUSINESS PROCESS ANALYST Office Visit [facility] [address] [place] [address] Shana Hollins MD [address] [address] 03/02/2025 4:00 PM SENIOR BUSINESS PROCESS ANALYST Appointment [facility] Cardiology Services 1 [place] [address] Georgiana Olivares APRN, LOAN CLOSER [address] [place] [address] Discharge Disposition: Discharged to home or Selfcare 05/11/2025 8:40 AM CDT [facility] [place] [address] [place] [address] 05/18/2025 8:15 AM CDT Office Visit [facility] - [place] [address] [place] [address] Davis Rae PAC [address] [place] [address] documented as of this encounter Visit Diagnoses Not on filedocumented in this encounter Additional Health Concerns Assessment Noted Time PHQ-9 Depression Total Score: 0 02/24/19 8:43 AM SENIOR BUSINESS PROCESS ANALYST documented as of this encounter Care Teams Unit Assembler Relationship Specialty Start Date End Date Davis Rae, PAC [address] [place] [address] PCP - General Physician Government Clerk 08/26/22 Caleb Haynes MD [address] [address] Consulting Physician General Surgery 02/14/22 Georgiana Olivares APRN, LOAN CLOSER [address] [place] [address] Nurse Practitioner Cardiology 11/29/24 documented as of this encounter
--- OUTSIDE RECORDS SUMMARY | 2024-11-30 13:56 | XMS_ITS | Clinical Summary ---
Author Organization [facility] Address [address] [place] [address] Care Team Providers Care Entry Level Mechanical Engineer Name Role Phone Gay Weeks APRN-[facility] Primary Care Provider + Source Comments [facility],non-owned Affiliates and Associated Physician Practices is amultiple site organization consisting of ambulatory clinics and hospital sitesin [place], [place], [place] and [place]. This disclosure is being madepursuant to the Care Everywhere program and may not contain all information available regarding this patient. Last updated 17.[facility] Allergies Active Allergy Reactions Criticality Noted Date Comments Hydrocodone-Acetaminophen Anaphylaxis High 8 Social History Tobacco Use Types Packs/Day Years Used Date Smoking Tobacco: Never Assessed Comments Unknown Sex and Gender Information Value Date Recorded Sex Assigned at Not on file Legal Sex Female 6:33 AM HEALTHCARE SALES REPRESENTATIVE Gender Identity Not on file Sexual Orientation Not on file Plan of Treatment Health Maintenance Due Date Last Done Comments HIV SCREENING 2000 HEPATITIS C SCREENING 04/08/2003 DTAP/TDAP/TD VACCINES (1 - Tdap) 2004 HEPATITIS B VACCINE (1 of 3 - 19+ 3-dose series) 2004 HPV VACCINE (1 - 3-dose SCDM series) 2012 DEPRESSION SCREENING 02/10/2024 COVID-19 VACCINE ( - 2023-2 5 season) 2024 INFLUENZA VACCINE (#1) 2024 ZOSTER VACCINE (1 of 2) 04/13/2035 HIB VACCINE Aged Out No longer eligi ble based on patient's age to complete this topic MENINGOCOCCAL (Group B) VACC INE SHARED DECISION-MAKING Aged Out No longer eligibl e based on patient's age to complete this topic MENINGOCOCCAL GROUPS A/C/Y/W VACCINE Aged Out No longer eligible b ased on patient's age to complete this topic PNEUMOCOCCAL VACCINE Aged Out No long er eligible based on patient's age to complete this topic Insurance [facility] Care Teams Entry Level Mechanical Engineer Relationship Specialty Start Date End Date Gay Weeks, PUBLICATIONS DISTRIBUTION CLERK-FRUIT BUYING GRADER [address] [place] [address] PCP - General 04/10/22
--- OUTSIDE RECORDS SUMMARY | 2024-11-30 13:56 | XMS_ITS | Clinical Summary ---
Author Organization [facility] Address 1 [place] [address] Care Team Providers Care Sales Representative Jewelry Name Role Phone Dinah Ha MD Unavailable [phone] Gay Weeks NP Primary Care Provider [phone] Allergies Active Allergy Reactions Criticality Noted Date [...] on file Legal Sex Female 4:23 PM TRANSIT DRIVER Gender Identity Not on file Sexual Orientation Not on file Obstetrics History Last Filed Vital Signs Vital Sign Reading Time Taken Comments Blood Pressure 154/88 01/24/2022 1:27 PM TRANSIT DRIVER Pulse 85 01/24/2022 1:27 PM TRANSIT DRIVER Temperature 36.9 C (98.4 F) 01/24/2022 1:27 PM TRANSIT DRIVER Respiratory Rate 20 10/13/2018 9:15 PM CDT Oxygen Saturation 98% 10/13/2018 9:15 PM CDT Inhaled Oxygen Concentration - - Weight 131.5 kg (290 lb) 01/24/2022 1:27 PM TRANSIT DRIVER Height 154.9 cm (5' 1) 01/24/2022 1:27 PM TRANSIT DRIVER Body Mass Index 54.8 01/24/2022 1:27 PM TRANSIT DRIVER Plan of Treatment Health Maintenance Due Date Last Done Comments Cervical Cancer Screening 1985 Depression Screening 1985 Hepatitis C Screening 1985 DTaP/Tdap/Td Vaccine (1 - Tdap) 1996 Varicella Vaccines (1 of 2 - 13+ 2-dose series) 1998 Hepatitis B Screening 04/13/2003 Regular Well Visit/Exam 18-64 04/13/2003 HPV Vaccines (1 - 3-dose SCD M series) 2012 Covid-19 Vaccine (3 - 2024-2 6 season) 2024 02/06/2021, 01/09/2021 Influenza Vaccine (#1) 2024 12/11/2016 Pneumococcal vaccine <65 Aged Out No longer eligible based on patient's age to complete this topic [place] [address] [facility] Care Teams Sales Representative Jewelry Relationship Specialty Start Date End Date Gay Weeks NP [address] [place] [address] PCP - General Nurse Practitioner 01/21/22 Dinah Ha MD 10/13/18
--- OUTSIDE RECORDS SUMMARY | 2024-11-30 13:56 | XMS_ITS | Encounter Summary ---
Author Organization [facility] Address [address] [place] [address] Phone Care Team Providers Care Electroplating Worker Name Role Phone Gay Weeks APRN, CNP Primary Care Provider Caleb Haynes MD Unavailable Davis Rae Primary Care Provider Georgiana Olivares APRN, CNP Unavailable Reason for Visit * Reason Comments Medication Refill Encounter Details Date Type Department Care Team (Late st Contact Info) Description 08/23/2022 Refill [facility] - Primary Care - [place] [address] [place] [address] Davis Rae PAC [address] [place] [address] Medication Refill Social History Tobacco Use Types [...] on file Sexual Orientation Not on file COVID-19 Exposure Response Date Recorded In the last 10 days, have yo u been in contact with someone who was confirmed or suspected to have Coronavirus/COVID-19? No / Unsure 08/26/2022 1:47 PM CDT documented as of this encounter Miscellaneous Notes * Telephone Encounter - Saundra Fofana RN - 08/26/2022 8:27 AM CDT Duplicate request. * Telephone Encounter - Qian Moffett RN - 08/23/2022 11:49 AM CDT [employer] message sent to schedule SLIME. documented in this encounter Plan of Treatment Upcoming Encounters Date Type Department Care Team (Late st Contact Info) Description 12/08/2024 9:00 AM CDT Clinical Support [facility] - Cardiology - [place] [address] [place] [address] Nurse, [place] [facility] [place] 12/09/2024 2:00 PM CDT [facility]ment [facility] [address] [place] [address] Georgiana Olivares APRN, BROOCH AND BRACELET MAKER [address] [place] [address] Discharge Disposition: Discharged to home or Selfcare 02/08/2025 10:00 AM AQUEDUCT AND RESERVOIR KEEPER Office Visit [facility] Cardiology [facility] [address] [place] [address] Shana Hollins MD [address] [address] 03/02/2025 4:00 PM AQUEDUCT AND RESERVOIR KEEPER [facility] [address] [place] [address] Georgiana Olivares, CHAIN OFFBEARER, BROOCH AND BRACELET MAKER [address] [place] [address] Discharge Disposition: Discharged to home or Selfcare 05/11/2025 8:40 AM CDT Lab [facility] - [place] [address] [place] [address] 05/18/2025 8:15 AM CDT Office Visit [facility] - [place] [address] [address] Davis Rae PAC [address] [place] [address] documented as of this encounter Visit Diagnoses Not on filedocumented in this encounter Additional Health Concerns Assessment Noted Time PHQ-9 Depression Total Score: 0 10/19/19 21 10:00 AM CDT documented as of this encounter Care Teams Electroplating Worker Relationship Specialty Start Date End Date Gay Weeks, CHAIN OFFBEARER, BROOCH AND BRACELET MAKER [address] [place], [place] [phone] PCP - General Advanced Practice Nurse 10/18/20 08/25/22 Davis Rae, PAC [address] [place] [address] PCP - General Physician Parking Lot Signaler 08/26/22 Caleb Haynes MD [address] [phone] Consulting Physician General Surgery 02/14/22 Georgiana Olivares APRN, BROOCH AND BRACELET MAKER [address] [place] [address] Nurse Practitioner Cardiology 11/29/24 documented as of this encounter
--- OUTSIDE RECORDS SUMMARY | 2024-11-30 13:56 | XMS_ITS | Encounter Summary ---
Author Organization [facility] Address [address] [place] [address] Phone Care Team Providers Care Grid Operator Name Role Phone Gay Weeks APRN, CNP Primary Care Provider Caleb Haynes MD Unavailable Davis Rae Primary Care Provider [phone] Georgiana Olivares APRN, CNP Unavailable Reason for Visit * Reason Comments Medication Refill Encounter Details Date Type Department Care Team (Late st Contact Info) Description 05/20/2022 Refill [facility] - Primary Care - [place] [address] [place] [address] Davis Rae PAC [address] [place] [address] Medication Refill Social History Tobacco [...] Telephone Encounter - Saundra Fofana RN - 05/20/2022 12:27 PM CDT Duplicate request. documented in this encounter Plan of Treatment Upcoming Encounters Date Type Department Care Team (Late st Contact Info) Description 12/08/2024 9:00 AM CDT Clinical Support [facility] - Cardiology [facility] #[address] [place] [address] [facility] [place] 12/09/2024 2:00 PM CDT [facility] [address] [place] [address] Georgiana Olivares APRN, PAD MACHINE OPERATOR [address] [place] [address] Discharge Disposition: Discharged to home or Selfcare 02/08/2025 10:00 AM EMPLOYMENT COORDINATOR Office Visit [facility] [address] [place] [address] Shana Hollins MD [address] [address] 03/02/2025 4:00 PM EMPLOYMENT COORDINATOR [facility] [address] [place] [address] Georgiana Olivares APRN, PAD MACHINE OPERATOR [address] [place] [address] Discharge Disposition: Discharged to home or Selfcare 05/11/2025 8:40 AM CDT Lab [facility] - [place] [address] [place] [address] 05/18/2025 8:15 AM CDT Office Visit [facility] - [place] [address] [place] [address] Davis Rae PAC [address] [place] [address] documented as of this encounter Visit Diagnoses Not on filedocumented in this encounter Additional Health Concerns Assessment Noted Time PHQ-9 Depression Total Score: 0 10/19/19 10:00 AM CDT documented as of this encounter Care Teams Grid Operator Relationship Specialty Start Date End Date Gay Weeks APRN, PAD MACHINE OPERATOR [address] [place] [address] PCP - General Advanced Practice Nurse 10/18/20 08/25/22 Davis Rae PAC [address] [place] [address] PCP - General Physician Intake Rn 08/26/22 Caleb Haynes MD [address] [address] Consulting Physician General Surgery 02/14/22 Georgiana Olivares APRN, PAD MACHINE OPERATOR [address] [place] [address] Nurse Practitioner Cardiology 11/29/24 documented as of this encounter
--- OUTSIDE RECORDS SUMMARY | 2024-11-30 13:56 | XMS_ITS | Encounter Summary ---
Author Organization [facility] Address [address] [place] [address] Phone Care Team Providers Care Head Irrigator Name Role Phone Caleb Haynes MD Unavailable Davis Rae PAC Primary Care Provider Georgiana Olivares APRN, TELEPHONE COIN BOX COLLECTOR Unavailable Encounter Details Date Type Department Care Team (Latest Contact Info) Description 03/17/2024 Transcribe Orders [facility] Mammography [address] [place] [address] Davis Rae, PAC [address] [place] [address] Abnormal mammogram (Primary Dx) Social History Tobacco Use Types Packs/Day Years Used Date Smoking Tobacco: Former Smokeless Tobacco: Never Alcohol Use Standard Drinks/Week Comments Not Currently 0 (1 standard drink = 0.6 oz pur e alcohol) Once a year PHQ-2 Answer Date Recorded Total Score - Questions 1-9 0 02/09 Education Answer Date Recorded What is the [...] Description 12/08/2024 9:00 AM CDT Clinical Support [facility] - Cardiology - [place] [address] [place] [address] Nurse, [place] [facility] [place] 12/09/2024 2:00 PM CDT [facility] [address] [place] [address] Georgiana Olivares APRN, TELEPHONE COIN BOX COLLECTOR [address] [place] [address] Discharge Disposition: Discharged to home or Selfcare 02/08/2025 10:00 AM TISSUE REWINDER Office Visit [facility] Cardiology - [place] [address] [place] [address] Shana Hollins MD [address] [address] 03/02/2025 4:00 PM TISSUE REWINDER Appointment [facility] Cardiology Services [address] [place] [address] Georgiana Olivares APRN, TELEPHONE COIN BOX COLLECTOR [address] [place] [address] Discharge Disposition: Discharged to home or Selfcare 05/11/2025 8:40 AM CDT Lab [facility] [place] [address] 05/18/2025 8:15 AM CDT Office Visit [facility] [place] [address] Davis Rae, PAC [address] [place] [address] documented as of this encounter Visit Diagnoses Diagnosis Abnormal mammogram- Primary Abnormal mammogram, unspecified documented in this encounter Additional Health Concerns Assessment Noted Time PHQ-9 Depression Total Score: 0 02/24/19 25 8:43 AM TISSUE REWINDER documented as of this encounter Care Teams Head Irrigator Relationship Specialty Start Date End Date Davis Rae, PAC [address] [place] [address] PCP - General Physician Seasonal Package Handler 08/26/22 Caleb Haynes MD [address] [place] [address] Consulting Physician General Surgery 02/14/22 Georgiana Olivares APRN, TELEPHONE COIN BOX COLLECTOR [address] [place] [address] Nurse Practitioner Cardiology 11/29/24 documented as of this encounter
== END 2024-11-30 11:32 | disposition home or self-care (01) ==
PROVIDERS: Emergency Provider Nurse Practitioner Family; PCP Physician Assistant
DX: J06.9 Acute upper respiratory infection, unspecified (principal); J02.9 Acute pharyngitis, unspecified; Z20.822 Contact with and (suspected) exposure to COVID-19; Z87.891 Personal history of nicotine dependence; I10 Essential (primary) hypertension; I48.0 Paroxysmal atrial fibrillation; G47.33 Obstructive sleep apnea (adult) (pediatric); N80.9 Endometriosis, unspecified; E78.5 Hyperlipidemia, unspecified; E55.9 Vitamin D deficiency, unspecified
CPT/HCPCS: 87081; 87426; 87804; 87880; 99213; G0463